=== PATIENT | male | born 1940 | race Caucasian/White ===

== ENCOUNTER 2017-06-24 15:27 | Outpatient (RCR) | payer MEDICARE, SELFPAY ==
--- NOTE | 2017-06-29 11:40 | HP.OTEVAL_ITS ---
Patient's Visit Information MARCE ROMERO is a 76 year old M, referred to Occupational Therapy by Hamida Norton DPM,, with a diagnosis of Bilateral Lymphedema. Date of Evaluation: 06/24/17 Occupational Therapist: Carmen Chong, REGGIER/Jodie, CHT - Subjective Subjective: Pt states he has struggled with swelling in BLE for at least 2 years. Pt states he was using compression socks but has not used compression socks for about a year- states he started at a wound center at [facility] about a year ago- started in [place] about 2 months ago- pt demo with sig. swelling in BLE- pt states he has in the past worked with someone to get his swelling under control but that was years ago- pt is hopeful to decrease limb size and get compression devices that will help him with his swelling. - Objective Objective/Observation: pt demo with stage III lymphedema- edema and trophic changes- - Lymphedema (Circumferential Measure) Mid-foot: Right 32cm left 32cm Ankle: right 37cm left 41 Lower calf: right 46cm left 44 Largest calf: right 52cm left 52cm Below knee: right 43cm left 42cm - Lower Limb Functional Index Lower Extremity Functional Score: 18 - Goals Demonstrate a 20% reduction in edema by d/c: Yes Demonstrate adequate knowledge of self-bangaging by 1st week: Yes Demonstrate adequate knowledge skin care/prec by 2nd week: Yes Demonstrate adequate knowledge therapeutic exercises by d/c: Yes Select approp compression garment w/donning/care/wear by d/c: Yes Voice need to replace compression garment every 4-6mo by dc: Yes - Rehabilitation General Assessment: Pt demo with stage III lymphedema. Pt would benefit form skilled OT services to ed. pt on dx and mtg- Rehabilitation Potential: Fair - Anticipated Interventions Anticipated Interventions: Education re Diagnosis, Manual Lymph Drainage, Education re Life-long lymphedema Management, Education re Self-Bandaging Techniques, Education re Skin Care and Precautions, Education re Self Massage Techniques, Education re Correct Donning Tech,Care&Wearing Sched Comp Garments, Caregiver Training - Visit Plan Frequency: 1-2x /Week Duration: 3 Weeks General Plan: will see pt 1-2 week for 3 weeks- ed pt on need for compression on LE to assist in mtg of LE edema- with pts measurments he will need alternative compression device as compression socks will not fit appropriately at this time- ed.pt on need to use wrapping to decrease limb size- pt willing to get circaids wrap to decrease limb size- Pts states she will check into insurance and coverage for compression devices/circaids TEXT: Thank you for the opportunity to evaluate your patient. For Medicare and Medicare HMO plans, please review the plan of care and approve it. It will need to be FAXED BACK to us at [phone] for Medicare purposes. Please let me know if there are questions or concerns regarding this plan of care. Physician Signature: Date:
--- NOTE | 2017-10-14 14:58 | HP.OT.NRP ---
HP - Discharge Summary - Patient Information MARCE ROMERO was seen in my office for initial evaluation on 06/24/17. The following Plan of Care was established for this patient: Initial Frequency: 1-2x /Week Initial Duration: 3 Weeks - Anticipated Interventions Anticipated Interventions: Education re Diagnosis, Manual Lymph Drainage, Education re Life-long lymphedema Management, Education re Self-Bandaging Techniques, Education re Skin Care and Precautions, Education re Self Massage Techniques, Education re Correct Donning Tech,Care&Wearing Sched Comp Garments, Caregiver Training This patient was last seen in our office 06/24/17. Pertinent comments regarding their Occupational therapy will appear below: pt attended inital OT eval. he did not return for further apts. pt d/c at this time due to non attendance. At this point I will be discontinuing this patient from occupational therapy. I would be happy to see this patient again in the future if found appropriate by the physician. Thank you! Carmen Chong, OTR/L, CHT
== END 2017-06-24 19:00 | disposition home or self-care (01) ==
LOC: OT 15:27
PROVIDERS: Visit Provider Podiatrist
DX: I89.0 Lymphedema, not elsewhere classified (principal); R60.0 Localized edema
CPT/HCPCS: 97166; G8978; G8979

== ENCOUNTER 2017-10-07 09:36 | Outpatient (RCR) | payer MEDICARE, SELFPAY | END 2017-10-14 23:59 | LOC: DC 09:36 | PROVIDERS: Visit Provider Podiatrist | DX: E11.40 Type 2 diabetes mellitus with diabetic neuropathy, unspecified (principal); L97.922 Non-pressure chronic ulcer of unspecified part of left lower leg with fat layer exposed; E46 Unspecified protein-calorie malnutrition; T14.90XA Injury, unspecified, initial encounter; Z71.3 Dietary counseling and surveillance | CPT/HCPCS: G0109 ==

== ENCOUNTER 2017-12-16 16:18 | Outpatient (RCR) | payer MEDICARE, SELFPAY ==
[2017-07-15 00:50] VITALS: BP 154/80; BMI 32.5
== END 2017-12-16 16:19 | disposition home or self-care (01) ==
LOC: DC 16:18
PROVIDERS: Visit Provider Podiatrist
DX: E11.40 Type 2 diabetes mellitus with diabetic neuropathy, unspecified (principal); L97.922 Non-pressure chronic ulcer of unspecified part of left lower leg with fat layer exposed; E46 Unspecified protein-calorie malnutrition; T14.90XA Injury, unspecified, initial encounter; Z71.3 Dietary counseling and surveillance
CPT/HCPCS: 97803

== ENCOUNTER 2018-01-17 11:33 | Emergency (ER) | payer MEDICARE, SELFPAY ==
[2018-01-17 11:34] VITALS: BP 142/83; PULSE 90; RESP 24; TEMP 36.7; O2SAT 86; BMI 32.7
[2018-01-17 11:49] VITALS: PULSE 84; RESP 18; O2SAT 99
--- NOTE | 2018-01-17 11:58 | ED.DCSUM_ITS ---
- ER Visit Summary Date of Service: 01/17/18 Chief Complaint: Abdominal pain, constipation History of Present Illness: The patient is a 77 M who presents with abdominal pain and constipation. He states he has been dealing with constipation for some time. Today he developed some abdominal pain which is why he came in. He has had no nausea or vomiting. He states he did have a small bowel movement today but he is not emptying as normal. He tried yogurt for the probiotics. He is also been taking MiraLAX. He states that when he drives he has done about his pants because he feels bloated. He shows me a paper that shows that his PSA is elevated on home blood work and needs to follow-up with his PCP. Physical Examination: Vital signs reviewed. HEENT exam unremarkable. Heart is regular rate and rhythm without murmurs. Lungs are clear to auscultation. Abdomen is soft and nontender. Extremities reveal chronic lymphedema of both lower extremities. Skin exam normal. Neurologic exam normal. Test Results: Acute abdominal series reveals constipation. Emergency Department Course and Treatment: Patient had 2 small bowel movements here but he still feels like he is not cleaned out. I will give him magnesium citrate that he can take at home. He will call his PCP tomorrow for follow-up Treatment Plan: [] Disposition: Discharge Impression: Constipation This note was generated with [employer] dictation software. It may contain incorrect words, spelling, and punctuation that were not noted in review of the chart prior to signing ED Disposition - Plan for ED Patient: Chief Complaint: Constipation Referrals: [facility] Doctor,Out of [Primary Care Provider] -
--- NOTE | 2018-01-17 12:10 | RAD_ITS ---
STUDY: X-RAY - ACUTE ABDOMINAL SERIES REASON FOR EXAM: Male, 77 years old. Constipation and CHF TECHNIQUE: Single view of the chest. Supine, and erect view(s) of the abdomen were obtained. COMPARISON: None. FINDINGS: Lungs are mildly hypoinflated. Mild bibasilar atelectasis. Lungs are otherwise clear. There is cardiomegaly. Normal mediastinum and molly. Normal visualized pulmonary arteries. There is atherosclerotic tortuosity of the aortic arch and descending thoracic aorta. There is a moderate amount of colonic fecal material. The soft tissue structures of the abdomen and pelvis are unremarkable. There are diffuse degenerative changes of the visualized lumbar spine. RAD/Acute Abdomen Inc Chest IMPRESSION: No acute cardiopulmonary disease. Constipation. No evidence of small bowel obstruction. Electronically Signed: Ashok Rizvi DO at 13:32 EDT Tel , Service support ,
--- NOTE | 2018-01-17 13:45 | ED.DEP ---
ED Disposition - Plan for ED Patient: Disposition: Home or Assisted Living Chief Complaint: Constipation Instructions: ED Constipation Referrals: [facility] Doctor,Out of [Primary Care Provider] -
[2018-01-17] MEDS: Magnesium Citrate 300 ML PO (14:09)
[2018-01-17 14:10] VITALS: RESP 20; O2SAT 94
== END 2018-01-17 14:11 | disposition home or self-care (01) ==
PROVIDERS: Emergency Provider Emergency Medicine
DX: K59.00 Constipation, unspecified (principal); I89.0 Lymphedema, not elsewhere classified; I10 Essential (primary) hypertension; E78.00 Pure hypercholesterolemia, unspecified; E11.9 Type 2 diabetes mellitus without complications; J44.9 Chronic obstructive pulmonary disease, unspecified; Z79.84 Long term (current) use of oral hypoglycemic drugs; Z79.899 Other long term (current) drug therapy
CPT/HCPCS: 74022; 99282

== ENCOUNTER 2018-01-27 12:32 | Outpatient (RCR) | payer MEDICARE, SELFPAY ==
--- NOTE | 2018-02-01 14:24 | HP.OTEVAL_ITS ---
Patient's Visit Information MARCE ROMERO is a 77 year old M, referred to Occupational Therapy by Kendall Buckley, with a diagnosis of Bilateral LE lymphedema. Date of Evaluation: 01/27/18 Occupational Therapist: Carmen Chong, KAYLA/Jodie, CHT - Subjective Subjective: PT arrives to center with - wraps from wound center on- pt states he was sent to to get a pump for his LE. pt states he was using compression socks- but he did not feel they were helping with his swelling- PT was here in and advised on the compression alternative as the circaide, farrow wraps etc. was to call insurance at that time to see if the insurance would cover the compression alternative- she did not call- Pt states he developed 5 wounds on his LE and has been being seen at the wound center- states he is happy with his progress but was referred to lymphedema clinic to get pt a compression pump for home mtg. of his lymphedema. - Lower Limb Functional Index Lower Extremity Functional Score: 6 - Goals Demonstrate adequate knowledge of self-bangaging by 1st week: Yes Demonstrate adequate knowledge skin care/prec by 2nd week: Yes Demonstrate adequate knowledge therapeutic exercises by d/c: Yes Select approp compression garment w/donning/care/wear by d/c: Yes Voice need to replace compression garment every 4-6mo by dc: Yes Goal:: Pt will demo understanding of how to get compression alternative devices. - Rehabilitation General Assessment: This pt is demo with bilateral stage III lymphedema. pt was seen at this clinic in 2016 and due to his high co-pay did not return. pt still has his high co-pay and states concerns with cost- this pt in was ed. on compression alternatived because he was having difficulty with donning his compression socks. pt and at that time were ed. on mtg. of LE lymphedema and cost of alternative divice as farrow wrap or circaide- pt and and were to contact their insurance company and pursue- purchase of alternative compression device. both pt and pts demo understanding Rehabilitation Potential: Questionable - Anticipated Interventions Anticipated Interventions: Education re Diagnosis, Education re Life-long lymphedema Management, Education re Skin Care and Precautions, Education re Correct Donning Tech,Care&Wearing Sched Comp Garments, Home Program Other Interventions: ed. on compression alternatives - Visit Plan Frequency: Every Other Week Duration: 4 Weeks TEXT: Thank you for the opportunity to evaluate your patient. For Medicare and Medicare HMO plans, please review the plan of care and approve it. It will need to be FAXED BACK to us at [phone] for Medicare purposes. Please let me know if there are questions or concerns regarding this plan of care. Physician Signature: Date:
--- NOTE | 2018-05-10 15:44 | HP.OT.NRP ---
HP - Discharge Summary - Patient Information MARCE ROMERO was seen in my office for initial evaluation on 01/27/18. The following Plan of Care was established for this patient: Initial Frequency: Every Other Week Initial Duration: 4 Weeks - Anticipated Interventions Anticipated Interventions: Education re Diagnosis, Education re Life-long lymphedema Management, Education re Skin Care and Precautions, Education re Correct Donning Tech,Care&Wearing Sched Comp Garments, Home Program Other Interventions: ed. on compression alternatives This patient was last seen in our office 01/27/18. Pertinent comments regarding their Occupational therapy will appear below: Pt seen for inital OT eval only. Due to laps in tx time pt is D/C at this time. At this point I will be discontinuing this patient from occupational therapy. I would be happy to see this patient again in the future if found appropriate by the physician. Thank you! Carmen Chong, OTR/L, CHT
== END 2018-01-27 19:00 | disposition home or self-care (01) ==
LOC: OT 12:32
PROVIDERS: Visit Provider Surgery
DX: I89.0 Lymphedema, not elsewhere classified (principal); L97.929 Non-pressure chronic ulcer of unspecified part of left lower leg with unspecified severity; L97.919 Non-pressure chronic ulcer of unspecified part of right lower leg with unspecified severity
CPT/HCPCS: 97166

== ENCOUNTER 2018-02-04 08:00 | Outpatient (RCR) | payer MEDICARE, SELFPAY ==
[2018-01-12 10:00] VITALS: BP 145/86; PULSE 78; RESP 20; TEMP 36; BMI 30.2
--- NOTE | 2018-01-12 11:44 | PCM.WC.HP ---
(1) Swelling of both lower extremities Status: Chronic Current Visit: Yes Code(s): M79.89 - Other specified soft tissue disorders (2) BPH (benign prostatic hyperplasia) Status: Chronic Current Visit: No Code(s): N40.0 - Benign prostatic hyperplasia without lower urinary tract symptoms (3) Inguinal hernia Status: Chronic Current Visit: No Qualifiers: Laterality: bilateral Code(s): K40.90 - Unilateral inguinal hernia, without obstruction or gangrene, not specified as recurrent (4) Oxygen dependent Status: Chronic Current Visit: Yes Code(s): Z99.81 - Dependence on supplemental oxygen (5) Physical deconditioning Status: Chronic Current Visit: Yes Code(s): R53.81 - Other malaise (6) Delayed wound healing Status: Chronic Current Visit: Yes Code(s): T14.8 - Other injury of unspecified body region (7) Congestive heart failure Status: Chronic Current Visit: Yes Qualifiers: Heart failure chronicity: chronic Code(s): I50.9 - Heart failure, unspecified (8) Diabetes mellitus with neuropathy Status: Chronic Current Visit: Yes Qualifiers: Diabetes mellitus type: type 1 Qualified Code(s): E10.40 - Type 1 diabetes mellitus with diabetic neuropathy, unspecified Code(s): E11.40 - Type 2 diabetes mellitus with diabetic neuropathy, unspecified (9) 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 Status: Chronic Current Visit: Yes Code(s): L97.922 - Non-pressure chronic ulcer of unspecified part of left lower leg with fat layer exposed (10) Chronic ulcer of right leg with fat layer exposed Status: Acute Current Visit: Yes Code(s): L97.912 - Non-pressure chronic ulcer of unspecified part of right lower leg with fat layer exposed (11) Venous insufficiency Status: Chronic Current Visit: Yes (12) Lymphedema Status: Chronic Current Visit: Yes Code(s): I89.0 - Lymphedema, not elsewhere classified (13) Edema, lower extremity Status: Chronic Current Visit: Yes Code(s): R60.0 - Localized edema (14) Venous insufficiency Status: Chronic Current Visit: Yes (15) Venous stasis dermatitis Status: Acute Current Visit: Yes Qualifiers: Laterality: bilateral Qualified Code(s): I87.2 - Venous insufficiency (chronic) (peripheral) Code(s): I87.2 - Venous insufficiency (chronic) (peripheral) (16) Hypertension Status: Chronic Current Visit: No Code(s): I10 - Essential (primary) hypertension History of Present Illness Date of Service: 01/12/18 Chief Complaint: Bilateral, chronic lower extremity swelling, edema, lymphedema, and ulcerations History of Wound: This 77-year-old male with significant past medical history presents for bilateral uncontrolled leg swelling, edema, lymphedema, and chronic ulcerations. The swelling, edema, and lymphedema in his lower extremities has been present for at least 4 years, and ulcerations have been present for that length of time as well. The patient is relatively immobile. He is minimally ambulatory. He spends long hours each day in an idle sitting position. He is also known to have congestive heart failure. He is oxygen dependent, using 4 L of oxygen by nasal cannula through most of the day. Because of his congestive heart failure, he finds it difficulty to lie in a recumbent position for extended periods of time. He denies a history of thrombophlebitis. A noninvasive lower extremity arterial study was performed in May 2017, which revealed normal resting ankle/brachial indices bilaterally. Triphasic waveforms were also noted at ankle level bilaterally. A venous duplex examination performed in May 2017 revealed incompetence of the right great saphenous vein in the right accessory saphenous vein. The left great saphenous vein below the knee was also incompetent. 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 His history is negative for myocardial infarction, cerebrovascular accident, cancer, pulmonary disease, renal disease, and hyperlipidemia. He has bilateral reducible inguinal hernias. Surgical History: - - The patient has undergone removal of a plantars wart on his right foot in the remote past. Is undergone right inguinal hernia repair. He also underwent tonsillectomy in the past. Home Medications: Ambulatory Orders Medication Instructions Recorded Atorvastatin Calcium 40 mg PO BREAKFAST 05/20/17 Carvedilol 3.125 mg PO BREAKFAST 05/20/17 Furosemide 40 mg PO DAILY 05/20/17 Glyburide 5 mg PO DAILY 05/20/17 HydrALAZINE 50 mg PO BREAKFAST 05/20/17 Isosorbide Dinitrate 10 mg PO BREAKFAST 05/20/17 Lisinopril/Hydrochlorothiazide PO BREAKFAST 05/20/17 Potassium Chloride 20 meq PO BREAKFAST 05/20/17 - Family History Paternal - - The patient's father at age of 60 from a shotgun wound. The patient's mother at age of 93 with a history of diabetes mellitus. 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 He works 3 days a week. He is . He denies use of tobacco products. He consumes alcoholic beverages occasionally. Lives: Spouse/ Significant Other Smoking Status: Never smoker Tobacco Use: Non-smoker Alcohol: Occasional Drugs: None Review of Systems Constitutional: Denies: Chills, Fever, Weight Change Eyes: Denies: Pain, Vision Change HEENT: Denies: Difficulty Hearing, Difficulty Swallowing, Sinus Congestion Cardiovascular: Denies: Chest Pain, Palpitations Respiratory: Denies: Cough, Shortness of Breath Gastrointestinal: Denies: Diarrhea, Nausea, Vomiting Genitourinary: Denies: Dysuria, Hematuria Endocrine: Denies: Heat/ Cold Intolerance, Polydipsia, Polyuria Hematologic/ Lymphatic: Denies: Easy Bruising, Easy Bleeding - Physical Exam Vital Signs Temp Pulse Resp BP 96.8 F L 78 20 H 145/86 H 01/12/18 10:00 01/12/18 10:00 01/12/18 10:00 01/12/18 10:00 General: Alert, Oriented x3, Cooperative, No apparent distress, Well developed, Well nourished HEENT: Atraumatic, PERRLA, EOMI, Normocephalic Oral: Moist Mucosa Neck: Supple, No JVD, Negative Carotid Bruits, Negative Hepatojugular Reflux, No Nuchal Rigidity, Trachea Midline Lungs: Clear to auscultation, Normal air movement, No rhonchi, No wheeze, No rales Cardiovascular: Regular rate, Regular Rhythm, Normal S1, Normal S2, No murmurs Abdomen: Soft, Non Tender, Non-Distended, Obese Extremities: No clubbing, No cyanosis, No Calf Tenderness, - - Bilateral lower extremity swelling, edema, and lymphedema are noted. Very mild, slight erythema is noted in the lower extremities bilaterally. 3 superficial ulcerations are noted in the right lower extremity. One superficial ulceration is noted in the left lower extremity. There is no obvious sign of infection or cellulitis. Dimensions are documented elsewhere. There is a mild amount of bioburden. Severe scaly venous stasis dermatitis is noted bilaterally. Wound Measurements and Assessment WC - Nurse 1 - General Ulcer Measurement Start: 01/12/18 09:55 Freq: Status: Active Protocol: Activity Type Activity Date Activity User E-Sign Co-Sign Detail Recorded Client Recorded Date Recorded By Document 01/12/18 10:00 DV [id number] 01/12/18 10:24 DV 01/12/18 10:00 Wound Center Nurse 1 [Ulcer Assessment] #8 Lateral RLE -Combined with other wound No -Current Size (cm) - Length 0.9 -Current Size (cm) - Width 0.9 -Current Size (cm) - Depth 0.2 -Total Square Cm 0.81 -Date of Last Picture (Recall this 01/12/18 field) -Photo Taken Yes -Epithelialization None Present -Tunneling No -Undermining/Tunneling No -Circular Undermining No -Classification - Thickness Full Thickness without Exposed Support Structure -Exudate Amt Large (67-100%) -Exudate Type Serosanguineous -Wound Margin Flat & Intact -Granulation Amt Medium (34-66%) -Granulation Quality Boring -Slough/Fibrin Yes -Necrosis Amt Medium (34-66%) -Necrotic Tissue Type Adherent Slough -Structure Exposed None/Limited to Skin Breakdown -Texture (Lili-wound Skin Appearance) Assessed Callus Excoriation Localized Edema -Moisture (Lili-wound Skin Appearance Assessed ) Weeping -Color (Lili-wound Skin Appearance) Assessed Erythema Mottled -Temperature (Lili-wound Skin No Abnormality Appearance) (Pt Warm) -Tenderness on Palpation (Lili-wound Yes Skin Appearance) -Ulcer Cleansing Wound Cleanser -Foul Odor after Cleansing Yes -Anesthetic Used 4% Lidocaine Solution #7 Right Mid Doty -Combined with other wound No -Current Size (cm) - Length 1.4 -Current Size (cm) - Width 1.3 -Current Size (cm) - Depth 0.2 -Total Square Cm 1.82 -Photo Taken Yes -Epithelialization None Present -Tunneling No -Undermining/Tunneling No -Classification - Thickness Full Thickness without Exposed Support Structure -Exudate Amt Large (67-100%) -Exudate Type Serosanguineous -Wound Margin Flat & Intact -Granulation Amt Small (1-33%) -Granulation Quality Boring -Slough/Fibrin Yes -Necrosis Amt Large (67-100%) -Necrotic Tissue Type Adherent Slough -Structure Exposed None/Limited to Skin Breakdown -Texture (Lili-wound Skin Appearance) Assessed Excoriation Localized Edema -Moisture (Lili-wound Skin Appearance Assessed ) Maceration Weeping -Color (Lili-wound Skin Appearance) Assessed Erythema Hemosiderin Staining Mottled -Temperature (Lili-wound Skin No Abnormality Appearance) (Pt Warm) -Ulcer Cleansing Wound Cleanser -Foul Odor after Cleansing Yes -Anesthetic Used 4% Lidocaine Solution #6 Medial RLE -Combined with other wound No -Current Size (cm) - Length 6.7 -Current Size (cm) - Width 6.9 -Current Size (cm) - Depth 0.1 -Total Square Cm 46.23 -Photo Taken Yes -Epithelialization None Present -Tunneling No -Undermining/Tunneling No -Circular Undermining No -Classification - Thickness Full Thickness without Exposed Support Structure -Exudate Amt Large (67-100%) -Exudate Type Serosanguineous -Wound Margin Flat & Intact -Granulation Amt Medium (34-66%) -Granulation Quality Red -Slough/Fibrin Yes -Necrosis Amt Large (67-100%) -Necrotic Tissue Type Adherent Slough -Structure Exposed None/Limited to Skin Breakdown -Texture (Lili-wound Skin Appearance) Assessed Excoriation Localized Edema Scarring -Moisture (Lili-wound Skin Appearance Assessed ) Maceration Weeping -Color (Lili-wound Skin Appearance) Assessed Erythema Hemosiderin Staining -Temperature (Lili-wound Skin No Abnormality Appearance) (Pt Warm) -Tenderness on Palpation (Lili-wound Yes Skin Appearance) -Ulcer Cleansing Wound Cleanser -Foul Odor after Cleansing Yes -Anesthetic Used 4% Lidocaine Solution #5 Lateral LLE -Combined with other wound No -Current Size (cm) - Length 5.5 -Current Size (cm) - Width 3.0 -Current Size (cm) - Depth 0.1 -Total Square Cm 16.50 -Photo Taken Yes -Epithelialization None Present -Tunneling No -Undermining/Tunneling No -Circular Undermining No -Classification - Thickness Full Thickness without Exposed Support Structure -Exudate Amt Large (67-100%) -Exudate Type Serosanguineous -Wound Margin Flat & Intact -Granulation Amt Medium (34-66%) -Granulation Quality Red -Slough/Fibrin Yes -Necrosis Amt Medium (34-66%) -Necrotic Tissue Type Adherent Slough -Structure Exposed None/Limited to Skin Breakdown -Texture (Lili-wound Skin Appearance) Assessed Excoriation Friable Localized Edema -Moisture (Lili-wound Skin Appearance Assessed ) Maceration Weeping -Color (Lili-wound Skin Appearance) Assessed Erythema Hemosiderin Staining -Temperature (Lili-wound Skin No Abnormality Appearance) (Pt Warm) -Tenderness on Palpation (Lili-wound Yes Skin Appearance) -Ulcer Cleansing Wound Cleanser -Foul Odor after Cleansing Yes -Anesthetic Used 4% Lidocaine Solution [Edema Assessment] -Lower Limb Edema Present Yes -Right Calf (cm) 50.6 -Right Ankle (cm) 38.0 -Left Calf (cm) 53.4 -Left Ankle (cm) 38.6 WC - Nurse 2 - General Ulcer CM Notes Start: 01/12/18 09:55 Freq: Status: Active Protocol: Activity Type Activity Date Activity User E-Sign Co-Sign Detail Recorded Client Recorded Date Recorded By Document 01/12/18 11:23 [id number] 01/12/18 11:34 01/12/18 11:23 Wound Center Nurse 2 [Procedure/Treatment] #8 Lateral RLE -Time 11:23 -Correct Patient Yes -Correct Side, Site, Position Yes -Correct Procedure Yes -Procedure Performed No -Wound/Ulcer Outcome Not Healed -Foul Odor after Cleansing No -Bioengineered Tissue No -Topical Lidocaine (%) 4 -Lidocaine (ml) 10 -Bleeding Controlled with NA #7 Right Mid Doty -Time 11:24 -Correct Patient Yes -Correct Side, Site, Position Yes -Correct Procedure Yes -Procedure Performed No -Wound/Ulcer Outcome Not Healed -Topical Lidocaine (%) 4 -Lidocaine (ml) 5 #6 Medial RLE -Time 11:24 -Correct Patient Yes -Correct Side, Site, Position Yes -Correct Procedure Yes -Procedure Performed No -Wound/Ulcer Outcome Not Healed -Foul Odor after Cleansing No -Bioengineered Tissue No -Topical Lidocaine (%) 4 -Lidocaine (ml) 5 -Bleeding Controlled with NA #5 Lateral LLE -Time 11:24 -Correct Patient Yes -Correct Side, Site, Position Yes -Correct Procedure Yes -Procedure Performed No -Wound/Ulcer Outcome Not Healed -Ulcer Cleansing Not Cleansed -Foul Odor after Cleansing No -Bioengineered Tissue No -Topical Lidocaine (%) 4 -Lidocaine (ml) 5 [See Physician Procedure note for Specifics] Pain Scale: 0-10 Numeric [Pain] -Is Patient Pain Free? Yes Neurological: Cranial nerves II-XII grossly intact, Neuro grossly intact Psych/Mental Status: Normal Affect, Appropriate, Alert and oriented to time, place, person, mood and affect Debridement Note Post-Debridement Measurements/Treatment WC - Nurse 2 - General Ulcer CM Notes Start: 01/12/18 09:55 Freq: Status: Active Protocol: Activity Type Activity Date Activity User E-Sign Co-Sign Detail Recorded Client Recorded Date Recorded By Document 01/12/18 11:23 PJ [id number] 01/12/18 11:34 01/12/18 11:23 Wound Center Nurse 2 #8 Lateral RLE -Time 11:23 -Correct Patient Yes -Correct Side, Site, Position Yes -Correct Procedure Yes -Procedure Performed No -Wound/Ulcer Outcome Not Healed -Foul Odor after Cleansing No -Bioengineered Tissue No -Topical Lidocaine (%) 4 -Lidocaine (ml) 10 -Bleeding Controlled with NA #7 Right Mid Doty -Time 11:24 -Correct Patient Yes -Correct Side, Site, Position Yes -Correct Procedure Yes -Procedure Performed No -Wound/Ulcer Outcome Not Healed -Topical Lidocaine (%) 4 -Lidocaine (ml) 5 #6 Medial RLE -Time 11:24 -Correct Patient Yes -Correct Side, Site, Position Yes -Correct Procedure Yes -Procedure Performed No -Wound/Ulcer Outcome Not Healed -Foul Odor after Cleansing No -Bioengineered Tissue No -Topical Lidocaine (%) 4 -Lidocaine (ml) 5 -Bleeding Controlled with NA #5 Lateral LLE -Time 11:24 -Correct Patient Yes -Correct Side, Site, Position Yes -Correct Procedure Yes -Procedure Performed No -Wound/Ulcer Outcome Not Healed -Ulcer Cleansing Not Cleansed -Foul Odor after Cleansing No -Bioengineered Tissue No -Topical Lidocaine (%) 4 -Lidocaine (ml) 5 Pain Scale: 0-10 Numeric Is Patient Pain Free? 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 Based upon the patient's history, it appears as though the swelling in his lower extremities is largely due to positional factors, and related to chronic dependency. He sleeps in a recliner chronically. He also spends long hours each day in an idle sitting position. His activity is minimal, and he is not ambulating liberally, and therefore not recruiting the use of the calf and foot muscle pumps for fluid mobilization. In addition, his congestive heart failure is likely also a factor in terms of the lower extremity swelling. Plan: The patient, and his , who is at the bedside, have been advised of the following: Activity has been encouraged. However, given his physical limitations and deconditioning, significant enhancement of activity is unlikely. Leg elevation has also been recommended. The patient has been encouraged to sleep relatively flat position, if possible. Leg elevation to heart level, or above, has been encouraged as well during daytime hours. It is acknowledged that leg elevation may be difficult for the patient, given his history of congestive heart failure and oxygen dependence. He is under the care of a school bus monitor in [place], [place], Dr. Schafer. We have made a request for the patient's most recent echocardiogram. We are to implement compression to the lower extremities by means of Unna boots, applied bilaterally. These will be changed twice weekly. The patient has been advised that he should seek medical attention should he develop some shortness of breath, chest pain, etc. Patient is to return in 1 week for reassessment. Laboratory studies will be obtained for routine assessment. This will include a CBC, comprehensive metabolic profile, hemoglobin A1c, etc. Ultimately, mechanical pneumatic compression pumps may be considered. The patient is not a smoker. Influenza vaccine was not administered today. Patient stands 6 feet 2 inches tall. He weighs 235 pounds. His BMI is 30.2. This places him in an obese 1 category. Weight loss has been recommended, and collaboration with the patient's primary care physician has been recommended.
--- NOTE | 2018-01-12 11:54 | HP.PCM_ITS ---
(1) Swelling of both lower extremities Status: Chronic Current Visit: Yes Code(s): M79.89 - Other specified soft tissue disorders (2) BPH (benign prostatic hyperplasia) Status: Chronic Current Visit: No Code(s): N40.0 - Benign prostatic hyperplasia without lower urinary tract symptoms (3) Inguinal hernia Status: Chronic Current Visit: No Qualifiers: Laterality: bilateral Code(s): K40.90 - Unilateral inguinal hernia, without obstruction or gangrene, not specified as recurrent (4) Oxygen dependent Status: Chronic Current Visit: Yes Code(s): Z99.81 - Dependence on supplemental oxygen (5) Physical deconditioning Status: Chronic Current Visit: Yes Code(s): R53.81 - Other malaise (6) Delayed wound healing Status: Chronic Current Visit: Yes Code(s): T14.8 - Other injury of unspecified body region (7) Congestive heart failure Status: Chronic Current Visit: Yes Qualifiers: Heart failure chronicity: chronic Code(s): I50.9 - Heart failure, unspecified (8) Diabetes mellitus with neuropathy Status: Chronic Current Visit: Yes Qualifiers: Diabetes mellitus type: type 1 Qualified Code(s): E10.40 - Type 1 diabetes mellitus with diabetic neuropathy, unspecified Code(s): E11.40 - Type 2 diabetes mellitus with diabetic neuropathy, unspecified (9) 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 Status: Chronic Current Visit: Yes Code(s): L97.922 - Non-pressure chronic ulcer of unspecified part of left lower leg with fat layer exposed (10) Chronic ulcer of right leg with fat layer exposed Status: Acute Current Visit: Yes Code(s): L97.912 - Non-pressure chronic ulcer of unspecified part of right lower leg with fat layer exposed (11) Venous insufficiency Status: Chronic Current Visit: Yes (12) Lymphedema Status: Chronic Current Visit: Yes Code(s): I89.0 - Lymphedema, not elsewhere classified (13) Edema, lower extremity Status: Chronic Current Visit: Yes Code(s): R60.0 - Localized edema (14) Venous insufficiency Status: Chronic Current Visit: Yes (15) Venous stasis dermatitis Status: Acute Current Visit: Yes Qualifiers: Laterality: bilateral Qualified Code(s): I87.2 - Venous insufficiency ( chronic) (peripheral) Code(s): I87.2 - Venous insufficiency (chronic) (peripheral) (16) Hypertension Status: Chronic Current Visit: No Code(s): I10 - Essential (primary) hypertension History of Present Illness Date of Service: 01/12/18 Chief Complaint: Bilateral, chronic lower extremity swelling, edema, lymphedema , and ulcerations History of Wound: This 77-year-old male with significant past medical history presents for bilateral uncontrolled leg swelling, edema, lymphedema, and chronic ulcerations. The swelling, edema, and lymphedema in his lower extremities has been present for at least 4 years, and ulcerations have been present for that length of time as well. The patient is relatively immobile. He is minimally ambulatory. He spends long hours each day in an idle sitting position. He is also known to have congestive heart failure. He is oxygen dependent, using 4 L of oxygen by nasal cannula through most of the day. Because of his congestive heart failure, he finds it difficulty to lie in a recumbent position for extended periods of time. He denies a history of thrombophlebitis. A noninvasive lower extremity arterial study was performed in May 2017, which revealed normal resting ankle/brachial indices bilaterally. Triphasic waveforms were also noted at ankle level bilaterally. A venous duplex examination performed in May 2017 revealed incompetence of the right great saphenous vein in the right accessory saphenous vein. The left great saphenous vein below the knee was also incompetent. 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 His history is negative for myocardial infarction, cerebrovascular accident, cancer, pulmonary disease, renal disease, and hyperlipidemia. He has bilateral reducible inguinal hernias. Surgical History: - - The patient has undergone removal of a plantars wart on his right foot in the remote past. Is undergone right inguinal hernia repair. He also underwent tonsillectomy in the past. Home Medications: Ambulatory Orders Medication Instructions Recorded Atorvastatin Calcium 40 mg PO BREAKFAST 05/20/17 Carvedilol 3.125 mg PO BREAKFAST 05/20/17 Furosemide 40 mg PO DAILY 05/20/17 Glyburide 5 mg PO DAILY 05/20/17 HydrALAZINE 50 mg PO BREAKFAST 05/20/17 Isosorbide Dinitrate 10 mg PO BREAKFAST 05/20/17 Lisinopril/Hydrochlorothiazide PO BREAKFAST 05/20/17 Potassium Chloride 20 meq PO BREAKFAST 05/20/17 - Family History Paternal - - The patient's father at age of 60 from a shotgun wound. The patient's mother at age of 93 with a history of diabetes mellitus. 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 He works 3 days a week. He is . He denies use of tobacco products. He consumes alcoholic beverages occasionally. Lives: Spouse/ Significant Other Smoking Status: Never smoker Tobacco Use: Non-smoker Alcohol: Occasional Drugs: None Review of Systems Constitutional: Denies: Chills, Fever, Weight Change Eyes: Denies: Pain, Vision Change HEENT: Denies: Difficulty Hearing, Difficulty Swallowing, Sinus Congestion Cardiovascular: Denies: Chest Pain, Palpitations Respiratory: Denies: Cough, Shortness of Breath Gastrointestinal: Denies: Diarrhea, Nausea, Vomiting Genitourinary: Denies: Dysuria, Hematuria Endocrine: Denies: Heat/ Cold Intolerance, Polydipsia, Polyuria Hematologic/ Lymphatic: Denies: Easy Bruising, Easy Bleeding - Physical Exam Vital Signs Temp Pulse Resp BP 96.8 F L 78 20 H 145/86 H 01/12/18 10:00 01/12/18 10:00 01/12/18 10:00 01/12/18 10:00 General: Alert, Oriented x3, Cooperative, No apparent distress, Well developed, Well nourished HEENT: Atraumatic, PERRLA, EOMI, Normocephalic Oral: Moist Mucosa Neck: Supple, No JVD, Negative Carotid Bruits, Negative Hepatojugular Reflux, No Nuchal Rigidity, Trachea Midline Lungs: Clear to auscultation, Normal air movement, No rhonchi, No wheeze, No rales Cardiovascular: Regular rate, Regular Rhythm, Normal S1, Normal S2, No murmurs Abdomen: Soft, Non Tender, Non-Distended, Obese Extremities: No clubbing, No cyanosis, No Calf Tenderness, - - Bilateral lower extremity swelling, edema, and lymphedema are noted. Very mild, slight erythema is noted in the lower extremities bilaterally. 3 superficial ulcerations are noted in the right lower extremity. One superficial ulceration is noted in the left lower extremity. There is no obvious sign of infection or cellulitis. Dimensions are documented elsewhere. There is a mild amount of bioburden. Severe scaly venous stasis dermatitis is noted bilaterally. Wound Measurements and Assessment WC - Nurse 1 - General Ulcer Measurement Start: 01/12/18 09:55 Freq: Status: Active Protocol: Activity Type Activity Date Activity User E-Sign Co-Sign Detail Recorded Client Recorded Date Recorded By Document 01/12/18 10:00 DV [id number] 01/12/18 10:24 DV 01/12/18 10:00 Wound Center Nurse 1 [Ulcer Assessment] #8 Lateral RLE -Combined with other wound No -Current Size (cm) - Length 0.9 -Current Size (cm) - Width 0.9 -Current Size (cm) - Depth 0.2 -Total Square Cm 0.81 -Date of Last Picture (Recall this 01/12/18 field) -Photo Taken Yes -Epithelialization None Present -Tunneling No -Undermining/Tunneling No -Circular Undermining No -Classification - Thickness Full Thickness without Exposed Support Structure -Exudate Amt Large (67-100%) -Exudate Type Serosanguineous -Wound Margin Flat & Intact -Granulation Amt Medium (34-66%) -Granulation Quality [place] -Slough/Fibrin Yes -Necrosis Amt Medium (34-66%) -Necrotic Tissue Type Adherent Slough -Structure Exposed None/Limited to Skin Breakdown -Texture (Lili-wound Skin Appearance) Assessed Callus Excoriation Localized Edema -Moisture (Lili-wound Skin Appearance Assessed ) Weeping -Color (Lili-wound Skin Appearance) Assessed Erythema Mottled -Temperature (Lili-wound Skin No Abnormality Appearance) (Pt Warm) -Tenderness on Palpation (Lili-wound Yes Skin Appearance) -Ulcer Cleansing Wound Cleanser -Foul Odor after Cleansing Yes -Anesthetic Used 4% Lidocaine Solution #7 Right Mid Doty -Combined with other wound No -Current Size (cm) - Length 1.4 -Current Size (cm) - Width 1.3 -Current Size (cm) - Depth 0.2 -Total Square Cm 1.82 -Photo Taken Yes -Epithelialization None Present -Tunneling No -Undermining/Tunneling No -Classification - Thickness Full Thickness without Exposed Support Structure -Exudate Amt Large (67-100%) -Exudate Type Serosanguineous -Wound Margin Flat & Intact -Granulation Amt Small (1-33%) -Granulation Quality [place] -Slough/Fibrin Yes -Necrosis Amt Large (67-100%) -Necrotic Tissue Type Adherent Slough -Structure Exposed None/Limited to Skin Breakdown -Texture (Lili-wound Skin Appearance) Assessed Excoriation Localized Edema -Moisture (Lili-wound Skin Appearance Assessed ) Maceration Weeping -Color (Lili-wound Skin Appearance) Assessed Erythema Hemosiderin Staining Mottled -Temperature (Lili-wound Skin No Abnormality Appearance) (Pt Warm) -Ulcer Cleansing Wound Cleanser -Foul Odor after Cleansing Yes -Anesthetic Used 4% Lidocaine Solution #6 Medial RLE -Combined with other wound No -Current Size (cm) - Length 6.7 -Current Size (cm) - Width 6.9 -Current Size (cm) - Depth 0.1 -Total Square Cm 46.23 -Photo Taken Yes -Epithelialization None Present -Tunneling No -Undermining/Tunneling No -Circular Undermining No -Classification - Thickness Full Thickness without Exposed Support Structure -Exudate Amt Large (67-100%) -Exudate Type Serosanguineous -Wound Margin Flat & Intact -Granulation Amt Medium (34-66%) -Granulation Quality [place] -Slough/Fibrin Yes -Necrosis Amt Large (67-100%) -Necrotic Tissue Type Adherent Slough -Structure Exposed None/Limited to Skin Breakdown -Texture (Lili-wound Skin Appearance) Assessed Excoriation Localized Edema Scarring -Moisture (Lili-wound Skin Appearance Assessed ) Maceration Weeping -Color (Lili-wound Skin Appearance) Assessed Erythema Hemosiderin Staining -Temperature (Lili-wound Skin No Abnormality Appearance) (Pt Warm) -Tenderness on Palpation (Lili-wound Yes Skin Appearance) -Ulcer Cleansing Wound Cleanser -Foul Odor after Cleansing Yes -Anesthetic Used 4% Lidocaine Solution #5 Lateral LLE -Combined with other wound No -Current Size (cm) - Length 5.5 -Current Size (cm) - Width 3.0 -Current Size (cm) - Depth 0.1 -Total Square Cm 16.50 -Photo Taken Yes -Epithelialization None Present -Tunneling No -Undermining/Tunneling No -Circular Undermining No -Classification - Thickness Full Thickness without Exposed Support Structure -Exudate Amt Large (67-100%) -Exudate Type Serosanguineous -Wound Margin Flat & Intact -Granulation Amt Medium (34-66%) -Granulation Quality Red -Slough/Fibrin Yes -Necrosis Amt Medium (34-66%) -Necrotic Tissue Type Adherent Slough -Structure Exposed None/Limited to Skin Breakdown -Texture (Lili-wound Skin Appearance) Assessed Excoriation [place] Localized Edema -Moisture (Lili-wound Skin Appearance Assessed ) Maceration Weeping -Color (Lili-wound Skin Appearance) Assessed Erythema Hemosiderin Staining -Temperature (Lili-wound Skin No Abnormality Appearance) (Pt Warm) -Tenderness on Palpation (Lili-wound Yes Skin Appearance) -Ulcer Cleansing Wound Cleanser -Foul Odor after Cleansing Yes -Anesthetic Used 4% Lidocaine Solution [Edema Assessment] -Lower Limb Edema Present Yes -Right Calf (cm) 50.6 -Right Ankle (cm) 38.0 -Left Calf (cm) 53.4 -Left Ankle (cm) 38.6 WC - Nurse 2 - General Ulcer CM Notes Start: 01/12/18 09:55 Freq: Status: Active Protocol: Activity Type Activity Date Activity User E-Sign Co-Sign Detail Recorded Client Recorded Date Recorded By Document 01/12/18 11:23 [id number] 01/12/18 11:34 01/12/18 11:23 Wound Center Nurse 2 [Procedure/Treatment] #8 Lateral RLE -Time 11:23 -Correct Patient Yes -Correct Side, Site, Position Yes -Correct Procedure Yes -Procedure Performed No -Wound/Ulcer Outcome Not Healed -Foul Odor after Cleansing No -Bioengineered Tissue No -Topical Lidocaine (%) 4 -Lidocaine (ml) 10 -Bleeding Controlled with NA #7 Right Mid [place] -Time 11:24 -Correct Patient Yes -Correct Side, Site, Position Yes -Correct Procedure Yes -Procedure Performed No -Wound/Ulcer Outcome Not Healed -Topical Lidocaine (%) 4 -Lidocaine (ml) 5 #6 Medial RLE -Time 11:24 -Correct Patient Yes -Correct Side, Site, Position Yes -Correct Procedure Yes -Procedure Performed No -Wound/Ulcer Outcome Not Healed -Foul Odor after Cleansing No -Bioengineered Tissue No -Topical Lidocaine (%) 4 -Lidocaine (ml) 5 -Bleeding Controlled with NA #5 Lateral LLE -Time 11:24 -Correct Patient Yes -Correct Side, Site, Position Yes -Correct Procedure Yes -Procedure Performed No -Wound/Ulcer Outcome Not Healed -Ulcer Cleansing Not Cleansed -Foul Odor after Cleansing No -Bioengineered Tissue No -Topical Lidocaine (%) 4 -Lidocaine (ml) 5 [See Physician Procedure note for Specifics] Pain Scale: 0-10 Numeric [Pain] -Is Patient Pain Free? Yes Neurological: Cranial nerves II-XII grossly intact, Neuro grossly intact Psych/Mental Status: Normal Affect, Appropriate, Alert and oriented to time, place, person, mood and affect Debridement Note Post-Debridement Measurements/Treatment WC - Nurse 2 - General Ulcer CM Notes Start: 01/12/18 09:55 Freq: Status: Active Protocol: Activity Type Activity Date Activity User E-Sign Co-Sign Detail Recorded Client Recorded Date Recorded By Document 01/12/18 11:23 [id number] 01/12/18 11:34 01/12/18 11:23 Wound Center Nurse 2 #8 Lateral RLE -Time 11:23 -Correct Patient Yes -Correct Side, Site, Position Yes -Correct Procedure Yes -Procedure Performed No -Wound/Ulcer Outcome Not Healed -Foul Odor after Cleansing No -Bioengineered Tissue No -Topical Lidocaine (%) 4 -Lidocaine (ml) 10 -Bleeding Controlled with NA #7 Right Mid [place] -Time 11:24 -Correct Patient Yes -Correct Side, Site, Position Yes -Correct Procedure Yes -Procedure Performed No -Wound/Ulcer Outcome Not Healed -Topical Lidocaine (%) 4 -Lidocaine (ml) 5 #6 Medial RLE -Time 11:24 -Correct Patient Yes -Correct Side, Site, Position Yes -Correct Procedure Yes -Procedure Performed No -Wound/Ulcer Outcome Not Healed -Foul Odor after Cleansing No -Bioengineered Tissue No -Topical Lidocaine (%) 4 -Lidocaine (ml) 5 -Bleeding Controlled with NA #5 Lateral LLE -Time 11:24 -Correct Patient Yes -Correct Side, Site, Position Yes -Correct Procedure Yes -Procedure Performed No -Wound/Ulcer Outcome Not Healed -Ulcer Cleansing Not Cleansed -Foul Odor after Cleansing No -Bioengineered Tissue No -Topical Lidocaine (%) 4 -Lidocaine (ml) 5 Pain Scale: 0-10 Numeric Is Patient Pain Free? 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 Based upon the patient' s history, it appears as though the swelling in his lower extremities is largely due to positional factors, and related to chronic dependency. He sleeps in a recliner chronically. He also spends long hours each day in an idle sitting position. His activity is minimal, and he is not ambulating liberally, and therefore not recruiting the use of the calf and foot muscle pumps for fluid mobilization. In addition, his congestive heart failure is likely also a factor in terms of the lower extremity swelling. Plan: The patient, and his , who is at the bedside, have been advised of the following: Activity has been encouraged. However, given his physical limitations and deconditioning, significant enhancement of activity is unlikely. Leg elevation has also been recommended. The patient has been encouraged to sleep relatively flat position, if possible. Leg elevation to heart level, or above, has been encouraged as well during daytime hours. It is acknowledged that leg elevation may be difficult for the patient, given his history of congestive heart failure and oxygen dependence. He is under the care of a feather mixer in [place], [place], Dr. Schafer. We have made a request for the patient's most recent echocardiogram. We are to implement compression to the lower extremities by means of [place] boots, applied bilaterally. These will be changed twice weekly. The patient has been advised that he should seek medical attention should he develop some shortness of breath, chest pain, etc. Patient is to return in 1 week for reassessment. Laboratory studies will be obtained for routine assessment. This will include a CBC, comprehensive metabolic profile, hemoglobin A1c, etc. Ultimately, mechanical pneumatic compression pumps may be considered. The patient is not a smoker. Influenza vaccine was not administered today. Patient stands 6 feet 2 inches tall. He weighs 235 pounds. His BMI is 30.2. This places him in an obese 1 category. Weight loss has been recommended, and collaboration with the patient's primary care physician has been recommended.
[2018-01-12 13:18] LABS: Hemoglobin 13.8 g/dl (13.0-16.5); Mean Corp Hgb Conc 30.7 g/gl (32-36); Mean Corpuscular Hgb 31.1 pg (27.0-32.0); Mean Corpuscular Volume 101.4 fL (80-94); Mean Platelet Vol. 11.9 fl (6.2-12.0); Platelet Count 158 K/mm3 (150-450); RBC Distribution Width CV 14.7 % (11.6-14.6); RBC Distribution Width SD 54.5 fl (35.1-43.9); Red Blood Count 4.44 M/mm3 (4.6-6.2); White Blood Count 5.9 K/mm3 (4.4-11.0)
[2018-01-12 13:23] LABS: Scan Indicated on CBC? Y/N NO
[2018-01-12 13:43] LABS: Hemoglobin A1c 8.2 % (4.2-6.3)
[2018-01-12 14:24] LABS: ALB/GLOB Ratio 0.9 RATIO (0.9-2.4); AST(SGOT) 15 U/L (15-37); Alanine Aminotransfer ALT/SGPT 15 U/L (16-61); Albumin, Serum 3.5 g/dL (3.2-5.0); Alkaline Phosphatase 102 U/L (45-117); Anion Gap 0 (5-15); BUN 15 mg/dL (7-18); BUN/Creat Ratio 19.2 RATIO (10-20); Calcium,Total 9.6 mg/dL (8.5-10.1); Chloride 95 mmol/L (98-107); Creatinine, Serum 0.78 mg/dL (0.70-1.30); EST Glomerular Filtration Rate 103 mL/min (>60); Est Glom Filt Rate - Afr Amer 124 mL/min (>60); Estimated Creatinine Clearance 74.21 ml/min; Globulin 3.8 g/dL (2.2-4.2); Glucose 140 mg/dL (74-106); Potassium 4.1 mmol/L (3.5-5.1); Protein, Total 7.3 g/dL (6.4-8.2); Sodium Level 139 mmol/L (136-145)
[2018-01-14 08:12] VITALS: BP 143/82; PULSE 91; RESP 28; TEMP 36.2; O2SAT 95; BMI 30.2
[2018-01-18 14:32] VITALS: BP 147/100; PULSE 86; RESP 22; TEMP 36.6; BMI 30.2
--- NOTE | 2018-01-18 15:15 | HP.PCM_ITS ---
(1) Swelling of both lower extremities Status: Chronic Current Visit: Yes Code(s): M79.89 - Other specified soft tissue disorders (2) BPH (benign prostatic hyperplasia) Status: Chronic Current Visit: No Code(s): N40.0 - Benign prostatic hyperplasia without lower urinary tract symptoms (3) Inguinal hernia Status: Chronic Current Visit: No Qualifiers: Laterality: bilateral Code(s): K40.90 - Unilateral inguinal hernia, without obstruction or gangrene, not specified as recurrent (4) Oxygen dependent Status: Chronic Current Visit: Yes Code(s): Z99.81 - Dependence on supplemental oxygen (5) Physical deconditioning Status: Chronic Current Visit: Yes Code(s): R53.81 - Other malaise (6) Delayed wound healing Status: Chronic Current Visit: Yes Code(s): T14.8 - Other injury of unspecified body region (7) Congestive heart failure Status: Chronic Current Visit: Yes Qualifiers: Heart failure chronicity: chronic Code(s): I50.9 - Heart failure, unspecified (8) Diabetes mellitus with neuropathy Status: Chronic Current Visit: Yes Code(s): E11.40 - Type 2 diabetes mellitus with diabetic neuropathy, unspecified (9) 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 Status: Chronic Current Visit: Yes Code(s): L97.922 - Non-pressure chronic ulcer of unspecified part of left lower leg with fat layer exposed (10) Chronic ulcer of right leg with fat layer exposed Status: Chronic Current Visit: Yes Code(s): L97.912 - Non-pressure chronic ulcer of unspecified part of right lower leg with fat layer exposed (11) Venous insufficiency Status: Chronic Current Visit: Yes (12) Lymphedema Status: Chronic Current Visit: Yes Code(s): I89.0 - Lymphedema, not elsewhere classified (13) Edema, lower extremity Status: Chronic Current Visit: Yes Code(s): R60.0 - Localized edema (14) Venous insufficiency Status: Chronic Current Visit: Yes (15) Venous stasis dermatitis Status: Chronic Current Visit: Yes Qualifiers: Laterality: bilateral Qualified Code(s): I87.2 - Venous insufficiency ( chronic) (peripheral) Code(s): I87.2 - Venous insufficiency (chronic) (peripheral) (16) Hypertension Status: Chronic Current Visit: No Code(s): I10 - Essential (primary) hypertension History of Present Illness Date of Service: 01/18/18 Chief Complaint: Bilateral, chronic lower extremity swelling, edema, lymphedema , and ulcerations History of Wound: This 77-year-old male with significant past medical history presents for bilateral uncontrolled leg swelling, edema, lymphedema, and chronic ulcerations. The swelling, edema, and lymphedema in his lower extremities has been present for at least 4 years, and ulcerations have been present for that length of time as well. The patient is relatively immobile. He is minimally ambulatory. He spends long hours each day in an idle sitting position. He is also known to have congestive heart failure. He is oxygen dependent, using 4 L of oxygen by nasal cannula through most of the day. Because of his congestive heart failure, he finds it difficulty to lie in a recumbent position for extended periods of time. He denies a history of thrombophlebitis. A noninvasive lower extremity arterial study was performed in May 2017, which revealed normal resting ankle/brachial indices bilaterally. Triphasic waveforms were also noted at ankle level bilaterally. A venous duplex examination performed in May 2017 revealed incompetence of the right great saphenous vein and the right accessory saphenous vein. The left great saphenous vein below the knee was also incompetent. 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 Is undergone right inguinal hernia repair. He also underwent tonsillectomy in the past. Allergies/Adverse Reactions: Allergies No Known Allergies Allergy (Verified 01/17/18 11:34) Home Medications: Ambulatory Orders Medication Instructions Recorded Atorvastatin Calcium [Lipitor] 40 mg PO QHS 01/17/18 Carvedilol [Coreg] 3.125 mg PO BID 01/17/18 Furosemide [Lasix] 40 mg PO DAILY 01/17/18 Glyburide 5 mg PO BID 01/17/18 Isosorbide Dinitrate [Isordil] 10 mg PO DAILY 01/17/18 L.acidoph,Paracasei, B.lactis 1 each PO DAILY 01/17/18 [Probiotic] Lisinopril/Hydrochlorothiazide 1 each PO BID 01/17/18 [Zestoretic 20-12.5 mg Tablet] Metformin HCl 500 mg PO BID 01/17/18 Polyethylene Glycol 3350 [Miralax] 17 gm PO DAILY 01/17/18 Potassium Chloride [K-Dur] 20 meq PO DAILY 01/17/18 [place] 160 mg PO BID 01/17/18 Tamsulosin HCl [Flomax] 0.4 mg PO BID 01/17/18 hydrALAZINE [Apresoline] 50 mg PO BID 01/17/18 - Family History Paternal - - The patient's father at age of 60 from a shotgun wound. The patient's mother at age of 93 with a history of diabetes mellitus. Lives: Spouse/ Significant Other Smoking Status: Never smoker Tobacco Use: Non-smoker Alcohol: Occasional Drugs: None Review of Systems Constitutional: Denies: Chills, Fever, Weight Change Eyes: Denies: Pain, Vision Change HEENT: Denies: Difficulty Hearing, Difficulty Swallowing, Sinus Congestion Cardiovascular: Denies: Chest Pain, Palpitations Respiratory: Denies: Cough, Shortness of Breath Gastrointestinal: Denies: Diarrhea, Nausea, Vomiting Genitourinary: Denies: Dysuria, Hematuria Endocrine: Denies: Heat/ Cold Intolerance, Polydipsia, Polyuria Hematologic/ Lymphatic: Denies: Easy Bruising, Easy Bleeding - Physical Exam Vital Signs Temp Pulse Resp BP Pulse Ox 97.8 F 86 22 H 147/100 H 95 01/18/18 14:32 01/18/18 14:32 01/18/18 14:32 01/18/18 14:32 01/14/18 08:12 General: Alert, Oriented x3, Cooperative, No apparent distress, Well developed, Well nourished, - - The patient is obese HEENT: Atraumatic, PERRLA, EOMI, Normocephalic Oral: Moist Mucosa Neck: No JVD Lungs: Normal air movement, - - Nasal cannula for oxygen is in place Abdomen: Non-Distended Extremities: No clubbing, No cyanosis, No Calf Tenderness, - - Severe bilateral lower extremity swelling, edema, and lymphedema is noted in the lower extremities bilaterally. Severe changes are noted, including lipodermatosclerosis, hypopigmentation, scaly dermatitis, and bilateral ulcerations in the gaiter areas. The ulceration on the right lower extremity is generally superficial. The base of the ulceration is pink and healthy, with active granulation tissue. There is only a mild amount of bioburden. Dimensions are documented elsewhere. Ulceration of the left lower extremity is smaller than that on the right, and dimensions are also documented elsewhere. There is a moderate amount of bioburden. There is no sign of infection or cellulitis on either side. Wound Measurements and Assessment WC - Nurse 1 - General Ulcer Measurement Start: 01/12/18 09:55 Freq: Status: Active Protocol: Activity Type Activity Date Activity User E-Sign Co-Sign Detail Recorded Client Recorded Date Recorded By Document 01/18/18 14:32 [id number] 01/18/18 14:41 MERARI 01/18/18 14:32 Wound Center Nurse 1 [Ulcer Assessment] #8 Lateral RLE -Combined with other wound No -Current Size (cm) - Length 0.5 -Current Size (cm) - Width 0.6 -Current Size (cm) - Depth 0.1 -Total Square Cm 0.30 -Photo Taken No -Epithelialization Large 67-100% -Tunneling No -Undermining/Tunneling No -Circular Undermining No -Exudate Amt Small (1-33%) -Exudate Type Serosanguineous -Wound Margin Flat & Intact -Granulation Amt Medium (34-66%) -Granulation Quality Red -Slough/Fibrin Yes -Necrosis Amt Small (1-33%) -Necrotic Tissue Type Adherent Slough -Structure Exposed N/A -Texture (Lili-wound Skin Appearance) Assessed Localized Edema -Moisture (Lili-wound Skin Appearance Assessed ) Dry/Scaly -Color (Lili-wound Skin Appearance) Assessed -Temperature (Lili-wound Skin No Abnormality Appearance) (Pt Warm) -Tenderness on Palpation (Lili-wound No Skin Appearance) -Ulcer Cleansing Wound Cleanser -Foul Odor after Cleansing No -Anesthetic Used 4% Lidocaine Solution #7 Right Mid [place] -Combined with other wound No -Current Size (cm) - Length 0 -Current Size (cm) - Width 0 -Current Size (cm) - Depth 0 -Total Square Cm 0 -Epithelialization Large 67-100% -Tunneling No -Undermining/Tunneling No -Circular Undermining No #6 Medial RLE -Combined with other wound No -Current Size (cm) - Length 6.4 -Current Size (cm) - Width 6.5 -Current Size (cm) - Depth 0.1 -Total Square Cm 41.60 -Photo Taken No -Epithelialization Small 1-33% -Tunneling No -Undermining/Tunneling No -Circular Undermining No -Exudate Amt Large (67-100%) -Exudate Type Serosanguineous -Wound Margin Flat & Intact -Granulation Amt Medium (34-66%) -Granulation Quality [place] -Slough/Fibrin Yes -Necrosis Amt Medium (34-66%) -Necrotic Tissue Type Adherent Slough -Structure Exposed N/A -Texture (Lili-wound Skin Appearance) Assessed Localized Edema -Moisture (Lili-wound Skin Appearance Assessed ) Weeping Dry/Scaly -Color (Lili-wound Skin Appearance) Assessed Hemosiderin Staining -Temperature (Lili-wound Skin No Abnormality Appearance) (Pt Warm) -Tenderness on Palpation (Lili-wound No Skin Appearance) -Ulcer Cleansing Wound Cleanser -Foul Odor after Cleansing No -Anesthetic Used 4% Lidocaine Solution #5 Lateral LLE -Combined with other wound No -Current Size (cm) - Length 8 -Current Size (cm) - Width 2.8 -Current Size (cm) - Depth 0.1 -Total Square Cm 22.4 -Photo Taken No -Epithelialization Small 1-33% -Tunneling No -Undermining/Tunneling No -Circular Undermining No -Exudate Amt Medium (34-66%) -Exudate Type Serosanguineous -Wound Margin Indistinct, Non -Visible -Granulation Amt Medium (34-66%) -Granulation Quality [place] -Slough/Fibrin Yes -Necrosis Amt Medium (34-66%) -Necrotic Tissue Type Adherent Slough -Structure Exposed N/A -Texture (Lili-wound Skin Appearance) Assessed Friable Localized Edema -Moisture (Lili-wound Skin Appearance Assessed ) Weeping Dry/Scaly -Color (Lili-wound Skin Appearance) Assessed Hemosiderin Staining -Temperature (Lili-wound Skin No Abnormality Appearance) (Pt Warm) -Tenderness on Palpation (Lili-wound No Skin Appearance) -Ulcer Cleansing Wound Cleanser -Foul Odor after Cleansing No -Anesthetic Used 4% Lidocaine Solution [Edema Assessment] -Lower Limb Edema Present Yes -Right Calf (cm) 47.4 -Right Ankle (cm) 36.5 -Left Calf (cm) 49.0 -Left Ankle (cm) 37.4 Neurological: Cranial nerves II-XII grossly intact, Neuro grossly intact Psych/Mental Status: Normal Affect, Appropriate, Alert and oriented to time, place, person, mood and affect Debridement Note Post-Debridement Measurements/Treatment WC - Nurse 2 - General Ulcer CM Notes Start: 01/12/18 09:55 Freq: Status: Active Protocol: Activity Type Activity Date Activity User E-Sign Co-Sign Detail Recorded Client Recorded Date Recorded By Document 01/12/18 11:23 PJ [id number] 01/12/18 11:34 PJ 01/12/18 11:23 Wound Center Nurse 2 #8 Lateral RLE -Time 11:23 -Correct Patient Yes -Correct Side, Site, Position Yes -Correct Procedure Yes -Procedure Performed No -Wound/Ulcer Outcome Not Healed -Foul Odor after Cleansing No -Bioengineered Tissue No -Topical Lidocaine (%) 4 -Lidocaine (ml) 10 -Bleeding Controlled with NA #7 Right Mid [place] -Time 11:24 -Correct Patient Yes -Correct Side, Site, Position Yes -Correct Procedure Yes -Procedure Performed No -Wound/Ulcer Outcome Not Healed -Topical Lidocaine (%) 4 -Lidocaine (ml) 5 #6 Medial RLE -Time 11:24 -Correct Patient Yes -Correct Side, Site, Position Yes -Correct Procedure Yes -Procedure Performed No -Wound/Ulcer Outcome Not Healed -Foul Odor after Cleansing No -Bioengineered Tissue No -Topical Lidocaine (%) 4 -Lidocaine (ml) 5 -Bleeding Controlled with NA #5 Lateral LLE -Time 11:24 -Correct Patient Yes -Correct Side, Site, Position Yes -Correct Procedure Yes -Procedure Performed No -Wound/Ulcer Outcome Not Healed -Ulcer Cleansing Not Cleansed -Foul Odor after Cleansing No -Bioengineered Tissue No -Topical Lidocaine (%) 4 -Lidocaine (ml) 5 Pain Scale: 0-10 Numeric Is Patient Pain Free? Yes Laterality: Right - Distal lower extremity Type of Debridement: Excisional debridement Anesthesia Used: 4% Lidocaine Solution Depth: Down to and including healthy tissue, in the subcutaneous layer Percentage of wound debrided: 100 Instrument Used: 5mm curette Severity: Fat Layer Exposed Amount of bleeding with debridement: Mild Bleeding Controlled with: Compression and gauze Patient tolerated procedure well - Additional Wound Laterality: Left Type of Debridement: Excisional debridement Anesthesia Used: 4% Lidocaine Solution Depth: Down to and including healthy tissue, in the subcutaneous layer Percentage of wound debrided: 100 Instrument Used: 5mm curette Severity: Fat Layer Exposed Amount of bleeding with debridement: Mild Bleeding Controlled with: Compression and gauze Patient tolerated procedure: Patient tolerated procedure well Assessment/Plan Active Problems Swelling of both lower extremities (Chronic) Oxygen dependent (Chronic) Physical deconditioning (Chronic) Venous stasis dermatitis (Chronic) Delayed wound healing (Chronic) Congestive heart failure (Chronic) Diabetes mellitus with neuropathy (Chronic) 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 Based upon the patient' s history, it appears as though the swelling in his lower extremities is largely due to positional factors, and related to chronic dependency. He sleeps in a recliner chronically. He also spends long hours each day in an idle sitting position. His activity is minimal, and he is not ambulating liberally, and therefore not recruiting the use of the calf and foot muscle pumps for fluid mobilization. In addition, his congestive heart failure is likely also a factor in terms of the lower extremity swelling. Routine laboratory studies have been obtained at the patient's most recent visit, with results as follows: Glucose 140, BUN 15, creatinine 0.78, total protein 7.3, albumin 3.5, calcium 9.6, AST 15, alkaline phosphatase 102, ALT 15, total bilirubin 0.90, sodium 139, potassium 4.1, chloride 95, pre-albumin 12.0, hemoglobin A1c 8.2, white blood count 5.9, hemoglobin 13.8, hematocrit 45.0, platelets 158,000. Plan: The patient has been advised of the following: Activity has been encouraged. However, given his physical limitations and deconditioning, significant enhancement of activity is unlikely. Leg elevation has also been recommended. However, despite his efforts, leg elevation is not possible, as the patient states I cannot breathe. Therefore, leg elevation is unlikely to be a realistic expectation. The patient has been encouraged to sleep relatively flat position, if possible. Leg elevation to heart level, or above, has been encouraged as well during daytime hours. It is acknowledged that leg elevation may be difficult for the patient, given his history of congestive heart failure and oxygen dependence. He is under the care of a resident director in [place], [place], Dr. Schafer. We have made a request for the patient's most recent echocardiogram. We are to continue compression to the lower extremities by means of Unna boots, applied bilaterally. Thus far, after use of Unna boots for 1 week, the patient appears to be tolerating these without any adverse effects. He was seen several days ago in the emergency department for constipation, which appears to be completely unrelated to his current issues. The patient's Unna boots are to be changed twice weekly. The patient has been advised that he should seek medical attention should he develop some shortness of breath, chest pain, etc. we are to refer the patient to the lymphedema clinic at [facility], and we anticipate that the implementation of mechanical pneumatic compression pumps may be of benefit. It may be possible that these mechanical pumps can be gradually implemented, initially at a low setting, with settings which will increase over time. Vast, it may be possible to implement such mechanical pumps, and avoid concerns regarding possible congestive heart failure. Patient is to return in 1 week for reassessment. The patient is not a smoker. Influenza vaccine was not administered today. Patient stands 6 feet 2 inches tall. He weighs 235 pounds. His BMI is 30.2. This places him in an obese 1 category. Weight loss has been recommended, and collaboration with the patient's primary care physician has been recommended.
[2018-01-21 08:52] VITALS: BP 142/91; PULSE 82; RESP 24; TEMP 36.1; BMI 30.2
[2018-01-25 14:46] VITALS: BP 148/98; PULSE 74; RESP 22; TEMP 36.2; BMI 30.2
[2018-01-28 08:07] VITALS: BP 126/83; PULSE 59; RESP 20; TEMP 36.5; BMI 30.2
[2018-02-01 12:00] VITALS: BP 121/79; PULSE 78; RESP 18; TEMP 33.8; BMI 30.2
--- NOTE | 2018-02-02 09:40 | PN_ITS ---
DATE OF SERVICE: 02/01/2018 The patient returns in routine followup today relative to swelling, edema and ulcerations in both lower extremities. Since evaluated in the wound healing center setting 1 week ago, the patient has been implementing Unna boots bilaterally to the lower extremities. These have been changed twice weekly. He has been advised to elevate his lower extremities as much as possible, but is unable to do so due to severe congestive heart failure, which precludes elevation of his lower extremities to any significant extent. Ulcer dimensions and circumferences of the lower extremities are documented elsewhere. Of note, the circumferences in the lower extremities are little changed. There has been no improvement in the swelling and edema in the patient's lower extremities. However, the ulcerations in the lower extremities are significantly improved. The larger of the 2 ulcerations is noted in the distal right lower extremity. A small ulceration is noted in the left lower extremity. In each case, the base of the ulceration is pink and healthy in appearance, with active granulation tissue. The ulcer in the right lower extremity also demonstrates islands of epithelialization. With respect to the ulcerations, there has been clear improvement in the recent week. We are to continue with current measures. We are to use Unna boots bilaterally. These will be changed twice weekly. The patient will return in 2 weeks for reassessment. Activity has been encouraged. Ultimately, we may consider the use of mechanical pneumatic compression pumps. The patient is not a smoker. Influenza vaccine was not administered today. The patient stands 6 feet 2 inches tall. He weighs 235 pounds. His BMI is 30.2. This places him in an obese 1 category. Weight loss has been recommended, and collaboration with the patient's primary care physician has been recommended. Vital signs, ulcer measurements, circumferences, etc. are documented elsewhere. Kendall Buckley MD T: NTS JOB: [id number]
[2018-02-09 08:21] VITALS: BP 132/79; PULSE 67; RESP 18; TEMP 36.6; BMI 30.2
[2018-02-11 08:13] VITALS: BP 125/68; PULSE 67; RESP 18; TEMP 36.2; BMI 30.2
== END 2018-02-11 23:59 ==
LOC: WC 08:00
PROVIDERS: Visit Provider Surgery
DX: L97.922 Non-pressure chronic ulcer of unspecified part of left lower leg with fat layer exposed (principal); L97.912 Non-pressure chronic ulcer of unspecified part of right lower leg with fat layer exposed; I89.0 Lymphedema, not elsewhere classified; R60.0 Localized edema; M79.89 Other specified soft tissue disorders; N40.0 Benign prostatic hyperplasia without lower urinary tract symptoms; K40.90 Unilateral inguinal hernia, without obstruction or gangrene, not specified as recurrent; Z99.81 Dependence on supplemental oxygen; E11.40 Type 2 diabetes mellitus with diabetic neuropathy, unspecified; I87.2 Venous insufficiency (chronic) (peripheral); I10 Essential (primary) hypertension; I50.9 Heart failure, unspecified; Z68.30 Body mass index [BMI] 30.0-30.9, adult; E66.9 Obesity, unspecified
CPT/HCPCS: 11042; 29580; 80053; 83036; 84134; 85027; 99205; 99211; 99212; 99213; G0463

== ENCOUNTER 2018-02-19 14:35 | Inpatient (IN) | payer MEDICARE, SELFPAY ==
--- NOTE | 2018-02-19 13:00 | EKG12_ITS ---
Test Reason : AM EKG Blood Pressure : / mmHG Vent. Rate : 074 BPM Atrial Rate : 074 BPM P-R Int : 258 ms QRS Dur : 194 ms QT Int : 480 ms P-R-T Axes : 065 -76 080 degrees QTc Int : 532 ms Sinus rhythm with 1st degree A-V block with occasional PVCs Left axis deviation Right bundle branch block Septal infarct , age undetermined Abnormal ECG Confirmed by SHAHLA MILLIGAN, CHANNING ([id number]), multimedia editor NURY GARCIA ([id number] on 03/04/2018 11:36:17 AM Referred By: Ney Herrmann Confirmed By:CHANNING GALE MD
--- NOTE | 2018-02-19 14:05 | RAD_ITS ---
STUDY: X-RAY CHEST REASON FOR EXAM: Male, 77 years old. SOB X COUPLE WEEKS, CHEST TIGHTNESS TECHNIQUE: AP and lateral views of the chest. COMPARISON: None. FINDINGS: There is mild to moderate cardiomegaly. Lungs are underexpanded. Right hemidiaphragm is elevated. There are bilateral perihilar opacities consistent with vascular congestion. No pleural effusion. Normal visualized pulmonary arteries. Normal visualized aortic arch and descending thoracic aorta. There are diffuse degenerative changes of the visualized thoracic spine. Normal visualized ribs, clavicles, and shoulders. There is no demonstrated abnormality of the visualized soft tissue structures of the upper abdomen. RAD/Chest PA and Lateral IMPRESSION: Cardiomegaly and vascular congestion. Electronically Signed: Doreen Auguste MD at 14:18 EDT , Service support ,
--- NOTE | 2018-02-19 17:11 | DT_ITS ---
This patient was seen during an EMR downtime February 15, 2018 - February 22, 2018. This patient may have a combination of paper and electronic documentation or all paper documentation. All documentation is viewable within the e-chart portion of [facility] for each patient visit.
--- NOTE | 2018-02-19 17:11 | DT_ITS ---
This patient was seen during an EMR downtime February 15, 2018 - February 22, 2018. This patient may have a combination of paper and electronic documentation or all paper documentation. All documentation is viewable within the e-chart portion of [facility] for each patient visit.
--- NOTE | 2018-02-20 12:00 | EKG12_ITS ---
Test Reason : SOB Blood Pressure : / mmHG Vent. Rate : 080 BPM Atrial Rate : 080 BPM P-R Int : 280 ms QRS Dur : 152 ms QT Int : 420 ms P-R-T Axes : 069 -84 106 degrees QTc Int : 484 ms Sinus rhythm with 1st degree A-V block Left axis deviation Left ventricular hypertrophy with QRS widening and repolarization abnormality Inferior infarct , age undetermined Anterolateral infarct , age undetermined Abnormal ECG Confirmed by MIGEL MILLIGAN, KAYLAN ([id number]), editor in chief newspaper NURY GARCIA ([id number]) on 02/24/2018 5:32:05 PM Referred By: Ney Herrmann Confirmed By:KAYLAN LAINEZ MD
--- NOTE | 2018-02-20 14:00 | RAD_ITS ---
STUDY: X-RAY CHEST REASON FOR EXAM: Male, 77 years old. Congestive heart failure. TECHNIQUE: Frontal and lateral views of the chest. COMPARISON: 01/17/2018. FINDINGS: Elevated right hemidiaphragm, stable. Stable atelectasis or scarring in both lung bases. There may be mild congestion, stable. No focal infiltrates. No gross effusions. There is moderate cardiac enlargement. Normal mediastinum and molly. There is prominence of the pulmonary hilar arteries without peripheral pulmonary vascular congestion, suggesting pulmonary hypertension. There is atherosclerotic tortuosity of the aortic arch and descending thoracic aorta. There are diffuse degenerative changes of the visualized thoracic spine. Normal visualized ribs, clavicles, and shoulders. There is no demonstrated abnormality of the visualized soft tissue structures of the upper abdomen. RAD/Chest PA and Lateral IMPRESSION: No definite change. Probable mild atelectasis or scarring in the lung bases. Probable mild congestion and cardiomegaly. Electronically Signed: Francisco Mayorga MD at 15:41 EDT , Service support ,
[2018-02-21 12:48] LABS: BUN 23 mg/dL (7-18); BUN/Creat Ratio 22.8 RATIO (10-20); Calcium,Total 9.1 mg/dL (8.5-10.1); Chloride 91 mmol/L (98-107); Creatinine, Serum 1.01 mg/dL (0.70-1.30); EST Glomerular Filtration Rate 77 mL/min (>60); Est Glom Filt Rate - Afr Amer 93 mL/min (>60); Glucose 145 mg/dL (74-106); Potassium 3.6 mmol/L (3.5-5.1); Sodium Level 142 mmol/L (136-145)
[2018-02-21 17:25] LABS: Anion Gap 6 (5-15)
[2018-02-22] MEDS: Enoxaparin 40 MG/0.4 ML Syringe SC (06:59)
[2018-02-22 07:00] VITALS: PULSE 85
[2018-02-22 07:04] LABS: BUN 28 mg/dL (7-18); BUN/Creat Ratio 25.7 RATIO (10-20); Calcium,Total 9.1 mg/dL (8.5-10.1); Carbon Dioxide > 45.0 mmol/L (21.0-32.0); Chloride 90 mmol/L (98-107); Creatinine, Serum 1.09 mg/dL (0.70-1.30); EST Glomerular Filtration Rate 70 mL/min (>60); Est Glom Filt Rate - Afr Amer 85 mL/min (>60); Glucose 133 mg/dL (74-106); Potassium 3.7 mmol/L (3.5-5.1); Sodium Level 142 mmol/L (136-145)
--- NOTE | 2018-02-22 09:51 | CASEMGMT ---
Per Harsh PRESCHOOL EDUCATION DIRECTOR, pt to be transferred to [facility] for runs of vtach. [facility] is in network according to the [facility] website. The only ambulance company in-network is [facility] and per dispatch they would come get pt and transport to [facility]. Call to [facility] and prior auth obtained per Sera for the ambulance transport at this time. Per [facility] rep, pt's co-pay should be $250. Auth#[id number]. Pt updated on all at this time and voices understanding. [facility] also [facility] per Thien Lam RN CM
[2018-02-22 11:10] VITALS: BP 137/68; PULSE 65; RESP 18; TEMP 36.4; O2SAT 99
[2018-02-22] MEDS: Famotidine 20 MG Tablet PO (11:19)
[2018-02-22 11:20] VITALS: PULSE 65
[2018-02-22] MEDS: hydrALAZINE 50 MG Tablet PO (11:20)
[2018-02-22] MEDS: Carvedilol 3.125 MG TABLET PO (11:21)
[2018-02-22] MEDS: Tamsulosin HCl 0.4 MG Capsule PO (11:21)
[2018-02-22] MEDS: HYDROCHLOROTHIAZIDE 12.5 MG CAPSULE PO (11:21)
[2018-02-22] MEDS: Isosorbide DN 10 MG Tablet PO (11:22)
[2018-02-22] MEDS: Lisinopril 20 MG Tablet PO (11:22)
--- NOTE | 2018-02-22 11:30 | PCM.DC.SUM ---
<Julienne Ann - Last Filed: 02/22/18 11:44> Discharge Date and Diagnosis Date of Admission: 02/19/18 Date of Discharge: 02/22/18 - Primary Discharge Diagnosis 1. Acute on Chronic CHF 2. Nonsustained V. 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 Probable mild atelectasis or scarring in the lung bases. Probable mild congestion and cardiomegaly. Electronically Signed: Francisco Mayorga MD at 15:41 EDT , Service support , Dr. Garcia- Cardiology Operations: None Procedures: None Summary of Care Provided: The patient is a 77 year old M admitted 02/19/18 due to general swelling and shortness of breath. He has a past medical history of type 2 diabetes mellitus, hypertension, CAD, chronic hypoxic respiratory failure, chronic lower extremity wounds with lymphedema, CHF, BPH. 1. Acute on chronic CHF-unknown subtype. Patient follows with Dr. Schafer, abstract checker in [place]. Dr. Schafer was contacted who states patient has not followed up in a long time and he is unsure of patient's past echo results. Patient was placed on Lasix drip during admission. Echocardiogram canceled due to pending transfer to [facility]. 2. Nonsustained V. tach-longest run [address] Garcia consulted. Patient will be transferred to [facility] for further evaluation for defibrillator replacement. 3. Chronic hypoxic respiratory failure-on baseline 3 L nasal cannula. 4. Type 2 diabetes mellitus 5. Hypertension 6. CAD 7. Chronic lower extremity wounds with lymphedema-follows with wound center. Walker wraps bilateral lower extremities. Patient seen exam prior to discharge. Alert and oriented. Lungs clear, diminished. Heart rate 65, regular in rate and rhythm. Neuro grossly intact. Abdomen soft, nontender. +3 bilateral lower extremity edema. Normal affect. Vital signs stable. Patient is stable for transfer to [facility]. This patient was seen by OTILIA Brown under the supervision of Dr. John. Home Medications: Medications to take at Discharge Atorvastatin Calcium [Lipitor] 40 mg PO QHS 01/17/18 Carvedilol [Coreg] 3.125 mg PO BID 01/17/18 Furosemide [Lasix] 40 mg PO DAILY 01/17/18 Glyburide 5 mg PO BID 01/17/18 Isosorbide Dinitrate [Isordil] 10 mg PO DAILY 01/17/18 L.acidoph,Paracasei, B.lactis [Probiotic] 1 each PO DAILY 01/17/18 Lisinopril/Hydrochlorothiazide [Zestoretic 20-12.5 mg Tablet] 1 each PO BID 01/17/18 Metformin HCl 500 mg PO BID 01/17/18 Polyethylene Glycol 3350 [Miralax] 17 gm PO DAILY 01/17/18 Potassium Chloride [K-Dur] 20 meq PO DAILY 01/17/18 Saw [place] 160 mg PO BID 01/17/18 Tamsulosin HCl [Flomax] 0.4 mg PO BID 01/17/18 hydrALAZINE [Apresoline] 50 mg PO BID 01/17/18 Primary Care Physician: Mallorie Hameed,Out of [Primary Care Provider] - Disposition: Acute care Hospital Minutes spent on discharge:: 35 Patient Condition:: Stable Medical Necessity - Tobacco Use Smoking Status: Never smoker Meaningful Use Info Meaningful Use Diagnoses (Choose all that apply): CHF - CHF WALKER/ARB ordered at discharge?: Yes Documented LVEF (%): 0 - Unknown EF <Ambar John - Last Filed: 02/22/18 12:01> Discharge Date and Diagnosis - Secondary Discharge Diagnosis Chronic Problems Swelling of both lower extremities (Chronic) BPH (benign prostatic hyperplasia) (Chronic) Inguinal hernia (Chronic) Oxygen dependent (Chronic) Physical deconditioning (Chronic) Venous stasis dermatitis (Chronic) Hypertension (Chronic) Delayed wound healing (Chronic) Malnutrition (Chronic) Congestive heart failure (Chronic) 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
--- NOTE | 2018-02-22 11:43 | DS.PCM_ITS ---
<Julienne Ann - Last Filed: 02/22/18 11:44> Discharge Date and Diagnosis Date of Admission: 02/19/18 Date of Discharge: 02/22/18 - Primary Discharge Diagnosis 1. Acute on Chronic CHF 2. Nonsustained V. 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 Probable mild atelectasis or scarring in the lung bases. Probable mild congestion and cardiomegaly. Electronically Signed: Francisco Mayorga MD at 15:41 EDT , Service support , Dr. Garcia- Cardiology Operations: None Procedures: None Summary of Care Provided: The patient is a 77 year old M admitted 02/19/18 due to general swelling and shortness of breath. He has a past medical history of type 2 diabetes mellitus , hypertension, CAD, chronic hypoxic respiratory failure, chronic lower extremity wounds with lymphedema, CHF, BPH. 1. Acute on chronic CHF-unknown subtype. Patient follows with Dr. Schafer, medication nurse in [place]. Dr. Schafer was contacted who states patient has not followed up in a long time and he is unsure of patient's past echo results. Patient was placed on Lasix drip during admission. Echocardiogram canceled due to pending transfer to [facility]. 2. Nonsustained V. tach-longest run [address] Garcia consulted. Patient will be transferred to [facility] for further evaluation for defibrillator replacement. 3. Chronic hypoxic respiratory failure-on baseline 3 L nasal cannula. 4. Type 2 diabetes mellitus 5. Hypertension 6. CAD 7. Chronic lower extremity wounds with lymphedema-follows with wound center. Walker wraps bilateral lower extremities. Patient seen exam prior to discharge. Alert and oriented. Lungs clear, diminished. Heart rate 65, regular in rate and rhythm. Neuro grossly intact. Abdomen soft, nontender. +3 bilateral lower extremity edema. Normal affect. Vital signs stable. Patient is stable for transfer to [facility]. This patient was seen by OTILIA Brown under the supervision of Dr. John. Home Medications: Medications to take at Discharge Atorvastatin Calcium [Lipitor] 40 mg PO QHS 01/17/18 Carvedilol [Coreg] 3.125 mg PO BID 01/17/18 Furosemide [Lasix] 40 mg PO DAILY 01/17/18 Glyburide 5 mg PO BID 01/17/18 Isosorbide Dinitrate [Isordil] 10 mg PO DAILY 01/17/18 L.acidoph,Paracasei, B.lactis [Probiotic] 1 each PO DAILY 01/17/18 Lisinopril/Hydrochlorothiazide [Zestoretic 20-12.5 mg Tablet] 1 each PO BID 03/01 Metformin HCl 500 mg PO BID 01/17/18 Polyethylene Glycol 3350 [Miralax] 17 gm PO DAILY 01/17/18 Potassium Chloride [K-Dur] 20 meq PO DAILY 01/17/18 Saw [place] 160 mg PO BID 01/17/18 Tamsulosin HCl [Flomax] 0.4 mg PO BID 01/17/18 hydrALAZINE [Apresoline] 50 mg PO BID 01/17/18 Primary Care Physician: Mallorie Hameed,Out of [Primary Care Provider] - Disposition: Acute care Hospital Minutes spent on discharge:: 35 Patient Condition:: Stable Medical Necessity - Tobacco Use Smoking Status: Never smoker Meaningful Use Info Meaningful Use Diagnoses (Choose all that apply): CHF - CHF WALKER/ARB ordered at discharge?: Yes Documented LVEF (%): 0 - Unknown EF <Ambar John - Last Filed: 02/22/18 12:01> Discharge Date and Diagnosis - Secondary Discharge Diagnosis Chronic Problems Swelling of both lower extremities (Chronic) BPH (benign prostatic hyperplasia) (Chronic) Inguinal hernia (Chronic) Oxygen dependent (Chronic) Physical deconditioning (Chronic) Venous stasis dermatitis (Chronic) Hypertension (Chronic) Delayed wound healing (Chronic) Malnutrition (Chronic) Congestive heart failure (Chronic) 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
[2018-02-22 11:44] LABS: White Blood Count 6.3 K/mm3 (4.4-11.0)
[2018-02-22 11:45] LABS: Absolute Lymphocyte Count 0.66 X10^3/ul (0.83-4.51); Absolute Neutrophil Count 4.9 X10^3/uL (2.0-7.7); Basophil% 0.2 % (0-1); Eosinophils% 2.4 % (0-5); Hematocrit 46.3 % (40-54); Hemoglobin 14.4 g/dl (13.0-16.5); Lymphocyte # 0.66 X10^3/ul (4.0); Lymphocyte % 10.5 % (19-41); Mean Corp Hgb Conc 31.1 g/gl (32-36); Mean Corpuscular Hgb 31.7 pg (27.0-32.0); Mean Platelet Vol. 11.6 fl (6.2-12.0); Monocyte# 0.62 X10^3/uL; Monocyte% 9.8 % (0-10); Neutrophil # 4.86 X10^3/uL (2.7-7.7); Neutrophil % 77.1 % (47-70); POSITIVE COUNT NO; POSITIVE DIFFERENTIAL NO; POSITIVE MORPHOLOGY NO; Platelet Count 128 K/mm3 (150-450); RBC Distribution Width CV 14.5 % (11.6-14.6); RBC Distribution Width SD 53.9 fl (35.1-43.9); Red Blood Count 4.54 M/mm3 (4.6-6.2)
[2018-02-22 11:45] LABS: Bedside Glucose 224 mg/dL (70-110)
[2018-02-22 11:46] LABS: Basophil# 0.01 X10^3/uL; Eosinophil# 0.15 X10^3/uL
[2018-02-22 11:51] VITALS: PULSE 71
--- NOTE | 2018-02-22 13:43 | CASEMGMT ---
[facility] showed up to transport pt after [facility] was called by Grzegorz, crusher and binder operator. Per [facility], 'we are all the same company.' Call to billing at [facility] in [place] and she states that they are owned by the same company and that [facility] would be in-network for pt as well. She states that she will 'keep an eye' on this pt to make sure all billing goes through properly. [facility] transported pt at this time. Genrao WHITTEN CM
[2018-02-22 22:01] LABS: Anion Gap 5 (5-15); BUN 21 mg/dL (7-18); BUN/Creat Ratio 24.1 RATIO (10-20); Chloride 97 mmol/L (98-107); Creatinine, Serum 0.87 mg/dL (0.70-1.30); EST Glomerular Filtration Rate 91 mL/min (>60); Est Glom Filt Rate - Afr Amer 110 mL/min (>60); Glucose 122 mg/dL (74-106); Sodium Level 143 mmol/L (136-145)
[2018-02-22 22:03] LABS: BNP,B-Type NATRIURETIC PEPTIDE 1334.6 pg/mL (0-100)
[2018-02-23 03:33] LABS: Magnesium 1.9 mg/dL (1.6-2.6)
[2018-02-23 09:56] LABS: Thyroid Stim Hormone (TSH) 2.36 uIU/mL (0.358-3.74)
[2018-02-23 10:03] LABS: AST(SGOT) 14 U/L (15-37); Alanine Aminotransfer ALT/SGPT 15 U/L (16-61); Albumin, Serum 3.5 g/dL (3.2-5.0); Alkaline Phosphatase 94 U/L (45-117); Anion Gap 6 (5-15); BUN 21 mg/dL (7-18); BUN/Creat Ratio 26.6 RATIO (10-20); Bilirubin, Direct 0.29 mg/dL (0.00-0.30); Calcium,Total 8.9 mg/dL (8.5-10.1); Chloride 94 mmol/L (98-107); Cholesterol 64 mg/dL (200); Creatinine, Serum 0.79 mg/dL (0.70-1.30); EST Glomerular Filtration Rate 102 mL/min (>60); Est Glom Filt Rate - Afr Amer 124 mL/min (>60); Globulin 3.4 g/dL (2.2-4.2); Glucose 121 mg/dL (74-106); High Density Lipoprotein 36 mg/dL; Potassium 3.5 mmol/L (3.5-5.1); Protein, Total 6.9 g/dL (6.4-8.2); Sodium Level 141 mmol/L (136-145); Triglycerides 60 mg/dL; Very Low Density Lipoprotein 12 mg/dL (5-40)
[2018-02-23 17:58] LABS: Absolute Lymphocyte Count 0.66 X10^3/ul (0.83-4.51); Absolute Neutrophil Count 3.4 X10^3/uL (2.0-7.7); Basophil# 0.02 X10^3/uL; Basophil% 0.4 % (0-1); Eosinophil# 0.15 X10^3/uL; Eosinophils% 3.1 % (0-5); Hematocrit 44.7 % (40-54); Hemoglobin 13.7 g/dl (13.0-16.5); Lymphocyte # 0.66 X10^3/ul (4.0); Lymphocyte % 13.6 % (19-41); Mean Corp Hgb Conc 30.6 g/gl (32-36); Mean Corpuscular Hgb 31.6 pg (27.0-32.0); Mean Platelet Vol. 11.8 fl (6.2-12.0); Monocyte# 0.67 X10^3/uL; Monocyte% 13.8 % (0-10); Neutrophil # 3.36 X10^3/uL (2.7-7.7); Neutrophil % 68.9 % (47-70); POSITIVE COUNT NO; POSITIVE DIFFERENTIAL NO; POSITIVE MORPHOLOGY NO; Platelet Count 121 K/mm3 (150-450); RBC Distribution Width CV 14.6 % (11.6-14.6); RBC Distribution Width SD 54.4 fl (35.1-43.9); Red Blood Count 4.34 M/mm3 (4.6-6.2); White Blood Count 4.9 K/mm3 (4.4-11.0)
[2018-02-25 15:33] LABS: Bedside Glucose 143 mg/dL (70-110)
[2018-02-26 12:17] LABS: Bedside Glucose 166 mg/dL (70-110)
[2018-02-26 20:46] LABS: Bedside Glucose 143 mg/dL (70-110)
[2018-02-26 20:47] LABS: Bedside Glucose 231 mg/dL (70-110)
[2018-02-26 20:48] LABS: Bedside Glucose 151 mg/dL (70-110)
[2018-02-26 20:52] LABS: Bedside Glucose 215 mg/dL (70-110)
[2018-03-03 08:30] LABS: Bedside Glucose 180 mg/dL (70-110)
[2018-03-03 08:30] LABS: Bedside Glucose 162 mg/dL (70-110)
[2018-03-03 08:30] LABS: Bedside Glucose 129 mg/dL (70-110)
[2018-03-03 08:30] LABS: Bedside Glucose 173 mg/dL (70-110)
== END 2018-02-22 13:40 | disposition short-term general hospital (02) | DRG 292 ==
LOC: ED 17:10 → PCU 17:12
PROVIDERS: Nurse Practitioner Family; Admitting Provider Internal Medicine; Emergency Provider Emergency Medicine; Visit Provider Internal Medicine
DX: I11.0 Hypertensive heart disease with heart failure (principal); I47.1 Supraventricular tachycardia; J96.11 Chronic respiratory failure with hypoxia; L97.912 Non-pressure chronic ulcer of unspecified part of right lower leg with fat layer exposed; L97.922 Non-pressure chronic ulcer of unspecified part of left lower leg with fat layer exposed; I50.31 Acute diastolic (congestive) heart failure; I25.10 Atherosclerotic heart disease of native coronary artery without angina pectoris; R60.1 Generalized edema; N40.0 Benign prostatic hyperplasia without lower urinary tract symptoms; I89.0 Lymphedema, not elsewhere classified; E78.5 Hyperlipidemia, unspecified; Z99.81 Dependence on supplemental oxygen; Z87.891 Personal history of nicotine dependence; I87.8 Other specified disorders of veins; E11.40 Type 2 diabetes mellitus with diabetic neuropathy, unspecified; E11.622 Type 2 diabetes mellitus with other skin ulcer
CPT/HCPCS: 36415; 71046; 80048; 80061; 80076; 82962; 83735; 83880; 84443; 84484; 85025; 93005; 96374; 97116; 97162; 97166; 97530; 97802; 99285; A4216; G8978; G8979; G8987; G8988; J1940

== ENCOUNTER 2018-03-08 12:31 | Outpatient (RCR) | payer MEDICARE, SELFPAY ==
[2018-02-12 01:04] VITALS: BP 125/68; PULSE 67; RESP 18; TEMP 36.2; O2SAT 95
[2018-03-08 13:52] VITALS: BP 107/49; PULSE 61; RESP 18; TEMP 36.3
--- NOTE | 2018-03-08 15:24 | PCM.WC.HP ---
(1) Swelling of both lower extremities Status: Chronic Current Visit: Yes Code(s): M79.89 - Other specified soft tissue disorders (2) BPH (benign prostatic hyperplasia) Status: Chronic Current Visit: No Code(s): N40.0 - Benign prostatic hyperplasia without lower urinary tract symptoms (3) Inguinal hernia Status: Chronic Current Visit: No Code(s): K40.90 - Unilateral inguinal hernia, without obstruction or gangrene, not specified as recurrent (4) Oxygen dependent Status: Chronic Current Visit: No Code(s): Z99.81 - Dependence on supplemental oxygen (5) Physical deconditioning Status: Chronic Current Visit: Yes Code(s): R53.81 - Other malaise (6) Venous stasis dermatitis Status: Chronic Current Visit: Yes Qualifiers: Laterality: bilateral Code(s): I87.2 - Venous insufficiency (chronic) (peripheral) (7) Hypertension Status: Chronic Current Visit: No Code(s): I10 - Essential (primary) hypertension (8) Ulcer of right foot with fat layer exposed Status: Resolved Current Visit: No Code(s): L97.512 - Non-pressure chronic ulcer of other part of right foot with fat layer exposed (9) Delayed wound healing Status: Chronic Current Visit: No Code(s): T14.8 - Other injury of unspecified body region (10) Malnutrition Status: Chronic Current Visit: No Code(s): E46 - Unspecified protein-calorie malnutrition (11) Congestive heart failure Status: Chronic Current Visit: Yes Code(s): I50.9 - Heart failure, unspecified (12) Diabetes mellitus with neuropathy Status: Chronic Current Visit: No Code(s): E11.40 - Type 2 diabetes mellitus with diabetic neuropathy, unspecified (13) 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 Status: Chronic Current Visit: No Code(s): L97.922 - Non-pressure chronic ulcer of unspecified part of left lower leg with fat layer exposed (14) Chronic ulcer of right leg with fat layer exposed Status: Chronic Current Visit: No Code(s): L97.912 - Non-pressure chronic ulcer of unspecified part of right lower leg with fat layer exposed (15) Peripheral vascular disease Status: Suspected Current Visit: No Code(s): I73.9 - Peripheral vascular disease, unspecified (16) Venous insufficiency Status: Chronic Current Visit: Yes (17) Lymphedema Status: Chronic Current Visit: Yes Code(s): I89.0 - Lymphedema, not elsewhere classified (18) Edema, lower extremity Status: Chronic Current Visit: Yes Code(s): R60.0 - Localized edema (19) Venous insufficiency Status: Chronic Current Visit: Yes History of Present Illness Date of Service: 03/08/18 Chief Complaint: Bilateral, chronic lower extremity swelling, edema, and lymphedema History of Wound: This 77-year-old male with significant past medical history presented for bilateral uncontrolled leg swelling, edema, and lymphedema. The swelling, edema, and lymphedema in his lower extremities has been present for at least 4 years. The patient is relatively immobile. He is minimally ambulatory. He spends long hours each day in an idle sitting position. He is also known to have congestive heart failure. He is oxygen dependent, using 4 L of oxygen by nasal cannula through most of the day. Because of his congestive heart failure, he finds it difficulty to lie in a recumbent position for extended periods of time. He denies a history of thrombophlebitis. A noninvasive lower extremity arterial study was performed in May 2017, which revealed normal resting ankle/brachial indices bilaterally. Triphasic waveforms were also noted at ankle level bilaterally. A venous duplex examination performed in May 2017 revealed incompetence of the right great saphenous vein and the right accessory saphenous vein. The left great saphenous vein below the knee was also incompetent. 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 The patient has recently been hospitalized at [facility] for 3 days, treated for acute congestive heart failure and nonsustained ventricular tachycardia. After a 3 day hospitalization, he was transferred to [facility] for further evaluation and management. 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 Is undergone right inguinal hernia repair. He also underwent tonsillectomy in the past. Allergies/Adverse Reactions: Allergies No Known Allergies Allergy (Verified 01/17/18 11:34) Home Medications: Ambulatory Orders Medication Instructions Recorded Atorvastatin Calcium [Lipitor] 40 mg PO QHS 01/17/18 Carvedilol [Coreg] 3.125 mg PO BID 01/17/18 Furosemide [Lasix] 40 mg PO DAILY 01/17/18 Glyburide 5 mg PO BID 01/17/18 Isosorbide Dinitrate [Isordil] 10 mg PO DAILY 01/17/18 L.acidoph,Paracasei, B.lactis 1 each PO DAILY 01/17/18 [Probiotic] Lisinopril/Hydrochlorothiazide 1 each PO BID 01/17/18 [Zestoretic 20-12.5 mg Tablet] Metformin HCl 500 mg PO BID 01/17/18 Polyethylene Glycol 3350 [Miralax] 17 gm PO DAILY 01/17/18 Potassium Chloride [K-Dur] 20 meq PO DAILY 01/17/18 [place] 160 mg PO BID 01/17/18 Tamsulosin HCl [Flomax] 0.4 mg PO BID 01/17/18 hydrALAZINE [Apresoline] 50 mg PO BID 01/17/18 - Family History Paternal - - The patient's father at age of 60 from a shotgun wound. The patient's mother at age of 93 with a history of diabetes mellitus. Smoking Status: Never smoker Tobacco Use: Non-smoker Review of Systems Constitutional: Denies: Chills, Fever, Weight Change Eyes: Denies: Pain, Vision Change HEENT: Denies: Difficulty Hearing, Difficulty Swallowing, Sinus Congestion Cardiovascular: Denies: Chest Pain, Palpitations Respiratory: Denies: Cough, Shortness of Breath Gastrointestinal: Denies: Diarrhea, Nausea, Vomiting Genitourinary: Denies: Dysuria, Hematuria Endocrine: Denies: Heat/ Cold Intolerance, Polydipsia, Polyuria Hematologic/ Lymphatic: Denies: Easy Bruising, Easy Bleeding - Physical Exam Vital Signs Temp Pulse Resp BP Pulse Ox 97.3 F L 61 18 107/49 L 95 03/08/18 13:52 03/08/18 13:52 03/08/18 13:52 03/08/18 13:52 02/12/18 01:04 General: Alert, Oriented x3, Cooperative, No apparent distress, Well developed, Well nourished HEENT: Atraumatic, PERRLA, EOMI, Normocephalic Oral: Moist Mucosa Neck: No JVD Lungs: Normal air movement Abdomen: Non-Distended Extremities: No clubbing, No cyanosis, No Calf Tenderness, Edema, - - Bilateral lower extremity swelling and edema is noted. Circumference measurements are documented elsewhere. There appears to be some improvement since the patient's prior visit. There are no obvious open wounds or ulcerations. Mild erythema is noted, appearing to be inflammatory rather than infectious in nature. Wound Measurements and Assessment WC - Nurse 1 - General Ulcer Measurement Start: 03/08/18 13:52 Freq: Status: Active Protocol: Activity Type Activity Date Activity User E-Sign Co-Sign Detail Recorded Client Recorded Date Recorded By Document 03/08/18 13:59 CT [id number] 03/08/18 14:15 CT 03/08/18 13:59 Wound Center Nurse 1 [Ulcer Assessment] #8 Lateral RLE -Current Size (cm) - Length 0 -Current Size (cm) - Width 0 -Current Size (cm) - Depth 0 -Total Square Cm 0 -Date of Last Picture (Recall this 03/08/18 field) -Photo Taken Yes -Epithelialization Large 67-100% -Tunneling No -Undermining/Tunneling No -Circular Undermining No -Exudate Amt None Present (0 %) -Wound Margin Flat & Intact -Granulation Amt Large (67-100%) -Granulation Quality Elmo -Slough/Fibrin No -Texture (Lili-wound Skin Appearance) Assessed Localized Edema -Moisture (Lili-wound Skin Appearance No Abnormality ) Assessed Dry/Scaly -Color (Lili-wound Skin Appearance) Assessed -Temperature (Lili-wound Skin No Abnormality Appearance) (Pt Warm) -Tenderness on Palpation (Lili-wound No Skin Appearance) -Ulcer Cleansing Not Cleansed #6 Medial RLE -Current Size (cm) - Length 0 -Current Size (cm) - Width 0 -Current Size (cm) - Depth 0 -Total Square Cm 0 -Date of Last Picture (Recall this 03/08/18 field) -Photo Taken Yes -Epithelialization Large 67-100% -Tunneling No -Undermining/Tunneling No -Circular Undermining No -Exudate Amt None Present (0 %) -Wound Margin Flat & Intact -Granulation Amt Large (67-100%) -Granulation Quality Elmo -Slough/Fibrin No -Texture (Lili-wound Skin Appearance) Assessed Localized Edema -Moisture (Lili-wound Skin Appearance No Abnormality ) Assessed -Color (Lili-wound Skin Appearance) Assessed Hemosiderin Staining -Temperature (Lili-wound Skin No Abnormality Appearance) (Pt Warm) -Ulcer Cleansing Not Cleansed #5 Lateral LLE -Current Size (cm) - Length 7 -Current Size (cm) - Width 7 -Current Size (cm) - Depth 0.1 -Total Square Cm 49 -Epithelialization None Present -Tunneling No -Undermining/Tunneling No -Circular Undermining No -Exudate Amt None Present (0 %) -Wound Margin Thickened -Granulation Amt None Present (0 %) -Granulation Quality N/A -Slough/Fibrin Yes -Necrosis Amt Large (67-100%) -Necrotic Tissue Type Adherent Slough -Structure Exposed N/A -Texture (Lili-wound Skin Appearance) Assessed Localized Edema -Moisture (Lili-wound Skin Appearance Assessed ) Dry/Scaly -Color (Lili-wound Skin Appearance) Assessed Hemosiderin Staining -Temperature (Lili-wound Skin No Abnormality Appearance) (Pt Warm) -Ulcer Cleansing Rinsed/ Irrigated with Saline -Anesthetic Used 4% Lidocaine Solution [Edema Assessment] -Right Calf (cm) 41.5 -Right Ankle (cm) 35 -Left Calf (cm) 44 -Left Ankle (cm) 35 WC - Nurse 2 - General Ulcer CM Notes Start: 03/08/18 13:52 Freq: Status: Active Protocol: Activity Type Activity Date Activity User E-Sign Co-Sign Detail Recorded Client Recorded Date Recorded By Document 03/08/18 15:03 PJ [id number] 03/08/18 15:08 PJ 03/08/18 15:03 Wound Center Nurse 2 [Procedure/Treatment] #8 Lateral RLE -Time 15:03 -Correct Patient Yes -Correct Side, Site, Position Yes -Correct Procedure Yes -Procedure Performed No -Wound/Ulcer Outcome Not Healed -Ulcer Cleansing Not Cleansed -Bleeding Controlled with NA #6 Medial RLE -Time 15:07 -Correct Patient Yes -Correct Side, Site, Position Yes -Correct Procedure Yes -Procedure Performed No -Wound/Ulcer Outcome Not Healed -Ulcer Cleansing Not Cleansed -Bleeding Controlled with NA #5 Lateral LLE -Time 15:08 -Correct Patient Yes -Correct Side, Site, Position Yes -Correct Procedure Yes -Procedure Performed No -Wound/Ulcer Outcome Not Healed -Ulcer Cleansing Not Cleansed -Bleeding Controlled with NA [See Physician Procedure note for Specifics] Pain Scale: 0-10 Numeric [Pain] -Is Patient Pain Free? Yes Neurological: Cranial nerves II-XII grossly intact, Neuro grossly intact Psych/Mental Status: Normal Affect, Appropriate, Alert and oriented to time, place, person, mood and affect Debridement Note Post-Debridement Measurements/Treatment WC - Nurse 2 - General Ulcer CM Notes Start: 03/08/18 13:52 Freq: Status: Active Protocol: Activity Type Activity Date Activity User E-Sign Co-Sign Detail Recorded Client Recorded Date Recorded By Document 03/08/18 15:03 [id number] 03/08/18 15:08 03/08/18 15:03 Wound Center Nurse 2 #8 Lateral RLE -Time 15:03 -Correct Patient Yes -Correct Side, Site, Position Yes -Correct Procedure Yes -Procedure Performed No -Wound/Ulcer Outcome Not Healed -Ulcer Cleansing Not Cleansed -Bleeding Controlled with NA #6 Medial RLE -Time 15:07 -Correct Patient Yes -Correct Side, Site, Position Yes -Correct Procedure Yes -Procedure Performed No -Wound/Ulcer Outcome Not Healed -Ulcer Cleansing Not Cleansed -Bleeding Controlled with NA #5 Lateral LLE -Time 15:08 -Correct Patient Yes -Correct Side, Site, Position Yes -Correct Procedure Yes -Procedure Performed No -Wound/Ulcer Outcome Not Healed -Ulcer Cleansing Not Cleansed -Bleeding Controlled with NA Pain Scale: 0-10 Numeric Is Patient Pain Free? Yes No debridement was completed today Assessment/Plan Active Problems Swelling of both lower extremities (Chronic) Physical deconditioning (Chronic) Venous stasis dermatitis (Chronic) Congestive heart failure (Chronic) Venous insufficiency (Chronic) Lymphedema (Chronic) Edema, lower extremity (Chronic) Venous insufficiency (Chronic) Assessment: This is a 77-year-old male with severe swelling, edema, and lymphedema in his lower extremities bilaterally, accompanied by a scaly dermatitis in both lower extremities. Based upon the patient's history, it appears as though the swelling in his lower extremities is largely due to positional factors, and related to chronic dependency. He sleeps in a recliner chronically. He also spends long hours each day in an idle sitting position. His activity is minimal, and he is not ambulating liberally, and therefore not recruiting the use of the calf and foot muscle pumps for fluid mobilization. In addition, his congestive heart failure is likely also a factor in terms of the lower extremity swelling. Routine laboratory studies have been obtained at the patient's most recent visit, with results as follows: Glucose 140, BUN 15, creatinine 0.78, total protein 7.3, albumin 3.5, calcium 9.6, AST 15, alkaline phosphatase 102, ALT 15, total bilirubin 0.90, sodium 139, potassium 4.1, chloride 95, pre-albumin 12.0, hemoglobin A1c 8.2, white blood count 5.9, hemoglobin 13.8, hematocrit 45.0, platelets 158,000. Patient has been hospitalized in recent days for treatment of congestive heart failure and nonsustained ventricular tachycardia. His linen aide has said no to mechanical pneumatic compression pumps for the lower extremities. Additionally, conservatism is felt warranted in the amount of compression applied to the patient's lower extremities, to avoid precipitating congestive heart failure. Plan: The patient has been advised of the following: Activity has been encouraged. However, given his physical limitations and deconditioning, significant enhancement of activity is unlikely. Leg elevation has also been recommended. However, despite his efforts, leg elevation is not possible, as the patient states I cannot breathe. Therefore, leg elevation is unlikely to be a realistic expectation. The patient has been encouraged to sleep relatively flat position, if possible. Leg elevation to heart level, or above, has been encouraged as well during daytime hours. It is acknowledged that leg elevation may be difficult for the patient, given his history of congestive heart failure and oxygen dependence. He is under the care of a linen aide in [place], [place], Dr. Schafer. Mechanical pneumatic compression pumps are to be avoided. Aggressive compression by means of graduated compression stockings and other means is also problematic. At present, the patient is using Tubigrip's, which will be continued. The patient has been advised that he should seek medical attention should he develop some shortness of breath, chest pain, etc. We are to refer the patient to the lymphedema clinic at [facility]. Patient is to return in 1 week for reassessment. He may be a candidate for complex care pathway, in which case his visits can occur less frequently. In addition to the patient's relative contraindications to lower extremity compression, there is also suspected to be an element of noncompliance on the patient's part. These factors suggest a poor prognostic outlook. The patient is not a smoker. Influenza vaccine was not administered today. Patient stands 6 feet 2 inches tall. He weighs 235 pounds. His BMI is 30.2. This places him in an obese 1 category. Weight loss has been recommended, and collaboration with the patient's primary care physician has been recommended.
--- NOTE | 2018-03-08 15:35 | HP.PCM_ITS ---
(1) Swelling of both lower extremities Status: Chronic Current Visit: Yes Code(s): M79.89 - Other specified soft tissue disorders (2) BPH (benign prostatic hyperplasia) Status: Chronic Current Visit: No Code(s): N40.0 - Benign prostatic hyperplasia without lower urinary tract symptoms (3) Inguinal hernia Status: Chronic Current Visit: No Code(s): K40.90 - Unilateral inguinal hernia, without obstruction or gangrene, not specified as recurrent (4) Oxygen dependent Status: Chronic Current Visit: No Code(s): Z99.81 - Dependence on supplemental oxygen (5) Physical deconditioning Status: Chronic Current Visit: Yes Code(s): R53.81 - Other malaise (6) Venous stasis dermatitis Status: Chronic Current Visit: Yes Qualifiers: Laterality: bilateral Code(s): I87.2 - Venous insufficiency (chronic) (peripheral) (7) Hypertension Status: Chronic Current Visit: No Code(s): I10 - Essential (primary) hypertension (8) Ulcer of right foot with fat layer exposed Status: Resolved Current Visit: No Code(s): L97.512 - Non-pressure chronic ulcer of other part of right foot with fat layer exposed (9) Delayed wound healing Status: Chronic Current Visit: No Code(s): T14.8 - Other injury of unspecified body region (10) Malnutrition Status: Chronic Current Visit: No Code(s): E46 - Unspecified protein- calorie malnutrition (11) Congestive heart failure Status: Chronic Current Visit: Yes Code(s): I50.9 - Heart failure, unspecified (12) Diabetes mellitus with neuropathy Status: Chronic Current Visit: No Code(s): E11.40 - Type 2 diabetes mellitus with diabetic neuropathy, unspecified (13) 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 Status: Chronic Current Visit: No Code(s): L97.922 - Non-pressure chronic ulcer of unspecified part of left lower leg with fat layer exposed (14) Chronic ulcer of right leg with fat layer exposed Status: Chronic Current Visit: No Code(s): L97.912 - Non-pressure chronic ulcer of unspecified part of right lower leg with fat layer exposed (15) Peripheral vascular disease Status: Suspected Current Visit: No Code(s): I73.9 - Peripheral vascular disease, unspecified (16) Venous insufficiency Status: Chronic Current Visit: Yes (17) Lymphedema Status: Chronic Current Visit: Yes Code(s): I89.0 - Lymphedema, not elsewhere classified (18) Edema, lower extremity Status: Chronic Current Visit: Yes Code(s): R60.0 - Localized edema (19) Venous insufficiency Status: Chronic Current Visit: Yes History of Present Illness Date of Service: 03/08/18 Chief Complaint: Bilateral, chronic lower extremity swelling, edema, and lymphedema History of Wound: This 77-year-old male with significant past medical history presented for bilateral uncontrolled leg swelling, edema, and lymphedema. The swelling, edema, and lymphedema in his lower extremities has been present for at least 4 years. The patient is relatively immobile. He is minimally ambulatory. He spends long hours each day in an idle sitting position. He is also known to have congestive heart failure. He is oxygen dependent, using 4 L of oxygen by nasal cannula through most of the day. Because of his congestive heart failure, he finds it difficulty to lie in a recumbent position for extended periods of time. He denies a history of thrombophlebitis. A noninvasive lower extremity arterial study was performed in May 2017, which revealed normal resting ankle/brachial indices bilaterally. Triphasic waveforms were also noted at ankle level bilaterally. A venous duplex examination performed in May 2017 revealed incompetence of the right great saphenous vein and the right accessory saphenous vein. The left great saphenous vein below the knee was also incompetent. 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 The patient has recently been hospitalized at [facility] for 3 days, treated for acute congestive heart failure and nonsustained ventricular tachycardia. After a 3 day hospitalization, he was transferred to [facility] for further evaluation and management. 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 Is undergone right inguinal hernia repair. He also underwent tonsillectomy in the past. Allergies/Adverse Reactions: Allergies No Known Allergies Allergy (Verified 01/17/18 11:34) Home Medications: Ambulatory Orders Medication Instructions Recorded Atorvastatin Calcium [Lipitor] 40 mg PO QHS 01/17/18 Carvedilol [Coreg] 3.125 mg PO BID 01/17/18 Furosemide [Lasix] 40 mg PO DAILY 01/17/18 Glyburide 5 mg PO BID 01/17/18 Isosorbide Dinitrate [Isordil] 10 mg PO DAILY 01/17/18 L.acidoph,Paracasei, B.lactis 1 each PO DAILY 01/17/18 [Probiotic] Lisinopril/Hydrochlorothiazide 1 each PO BID 01/17/18 [Zestoretic 20-12.5 mg Tablet] Metformin HCl 500 mg PO BID 01/17/18 Polyethylene Glycol 3350 [Miralax] 17 gm PO DAILY 01/17/18 Potassium Chloride [K-Dur] 20 meq PO DAILY 01/17/18 Saw [place] 160 mg PO BID 01/17/18 Tamsulosin HCl [Flomax] 0.4 mg PO BID 01/17/18 hydrALAZINE [Apresoline] 50 mg PO BID 01/17/18 - Family History Paternal - - The patient's father at age of 60 from a shotgun wound. The patient's mother at age of 93 with a history of diabetes mellitus. Smoking Status: Never smoker Tobacco Use: Non-smoker Review of Systems Constitutional: Denies: Chills, Fever, Weight Change Eyes: Denies: Pain, Vision Change HEENT: Denies: Difficulty Hearing, Difficulty Swallowing, Sinus Congestion Cardiovascular: Denies: Chest Pain, Palpitations Respiratory: Denies: Cough, Shortness of Breath Gastrointestinal: Denies: Diarrhea, Nausea, Vomiting Genitourinary: Denies: Dysuria, Hematuria Endocrine: Denies: Heat/ Cold Intolerance, Polydipsia, Polyuria Hematologic/ Lymphatic: Denies: Easy Bruising, Easy Bleeding - Physical Exam Vital Signs Temp Pulse Resp BP Pulse Ox 97.3 F L 61 18 107/49 L 95 03/08/18 13:52 03/08/18 13:52 03/08/18 13:52 03/08/18 13:52 02/12/18 01:04 General: Alert, Oriented x3, Cooperative, No apparent distress, Well developed, Well nourished HEENT: Atraumatic, PERRLA, EOMI, Normocephalic Oral: Moist Mucosa Neck: No JVD Lungs: Normal air movement Abdomen: Non-Distended Extremities: No clubbing, No cyanosis, No Calf Tenderness, Edema, - - Bilateral lower extremity swelling and edema is noted. Circumference measurements are documented elsewhere. There appears to be some improvement since the patient's prior visit. There are no obvious open wounds or ulcerations. Mild erythema is noted, appearing to be inflammatory rather than infectious in nature. Wound Measurements and Assessment WC - Nurse 1 - General Ulcer Measurement Start: 03/08/18 13:52 Freq: Status: Active Protocol: Activity Type Activity Date Activity User E-Sign Co-Sign Detail Recorded Client Recorded Date Recorded By Document 03/08/18 13:59 IL [id number] 03/08/18 14:15 [place] 03/08/18 13:59 Wound Center Nurse 1 [Ulcer Assessment] #8 Lateral RLE -Current Size (cm) - Length 0 -Current Size (cm) - Width 0 -Current Size (cm) - Depth 0 -Total Square Cm 0 -Date of Last Picture (Recall this 03/08/18 field) -Photo Taken Yes -Epithelialization Large 67-100% -Tunneling No -Undermining/Tunneling No -Circular Undermining No -Exudate Amt None Present (0 %) -Wound Margin Flat & Intact -Granulation Amt Large (67-100%) -Granulation Quality [place] -Slough/Fibrin No -Texture (Lili-wound Skin Appearance) Assessed Localized Edema -Moisture (Lili-wound Skin Appearance No Abnormality ) Assessed Dry/Scaly -Color (Lili-wound Skin Appearance) Assessed -Temperature (Lili-wound Skin No Abnormality Appearance) (Pt Warm) -Tenderness on Palpation (Lili-wound No Skin Appearance) -Ulcer Cleansing Not Cleansed #6 Medial RLE -Current Size (cm) - Length 0 -Current Size (cm) - Width 0 -Current Size (cm) - Depth 0 -Total Square Cm 0 -Date of Last Picture (Recall this 03/08/18 field) -Photo Taken Yes -Epithelialization Large 67-100% -Tunneling No -Undermining/Tunneling No -Circular Undermining No -Exudate Amt None Present (0 %) -Wound Margin Flat & Intact -Granulation Amt Large (67-100%) -Granulation Quality [place] -Slough/Fibrin No -Texture (Lili-wound Skin Appearance) Assessed Localized Edema -Moisture (Lili-wound Skin Appearance No Abnormality ) Assessed -Color (Lili-wound Skin Appearance) Assessed Hemosiderin Staining -Temperature (Lili-wound Skin No Abnormality Appearance) (Pt Warm) -Ulcer Cleansing Not Cleansed #5 Lateral LLE -Current Size (cm) - Length 7 -Current Size (cm) - Width 7 -Current Size (cm) - Depth 0.1 -Total Square Cm 49 -Epithelialization None Present -Tunneling No -Undermining/Tunneling No -Circular Undermining No -Exudate Amt None Present (0 %) -Wound Margin Thickened -Granulation Amt None Present (0 %) -Granulation Quality N/A -Slough/Fibrin Yes -Necrosis Amt Large (67-100%) -Necrotic Tissue Type Adherent Slough -Structure Exposed N/A -Texture (Lili-wound Skin Appearance) Assessed Localized Edema -Moisture (Lili-wound Skin Appearance Assessed ) Dry/Scaly -Color (Lili-wound Skin Appearance) Assessed Hemosiderin Staining -Temperature (Lili-wound Skin No Abnormality Appearance) (Pt Warm) -Ulcer Cleansing Rinsed/ Irrigated with Saline -Anesthetic Used 4% Lidocaine Solution [Edema Assessment] -Right Calf (cm) 41.5 -Right Ankle (cm) 35 -Left Calf (cm) 44 -Left Ankle (cm) 35 WC - Nurse 2 - General Ulcer CM Notes Start: 03/08/18 13:52 Freq: Status: Active Protocol: Activity Type Activity Date Activity User E-Sign Co-Sign Detail Recorded Client Recorded Date Recorded By Document 03/08/18 15:03 PJ [id number] 03/08/18 15:08 PJ 03/08/18 15:03 Wound Center Nurse 2 [Procedure/Treatment] #8 Lateral RLE -Time 15:03 -Correct Patient Yes -Correct Side, Site, Position Yes -Correct Procedure Yes -Procedure Performed No -Wound/Ulcer Outcome Not Healed -Ulcer Cleansing Not Cleansed -Bleeding Controlled with NA #6 Medial RLE -Time 15:07 -Correct Patient Yes -Correct Side, Site, Position Yes -Correct Procedure Yes -Procedure Performed No -Wound/Ulcer Outcome Not Healed -Ulcer Cleansing Not Cleansed -Bleeding Controlled with NA #5 Lateral LLE -Time 15:08 -Correct Patient Yes -Correct Side, Site, Position Yes -Correct Procedure Yes -Procedure Performed No -Wound/Ulcer Outcome Not Healed -Ulcer Cleansing Not Cleansed -Bleeding Controlled with NA [See Physician Procedure note for Specifics] Pain Scale: 0-10 Numeric [Pain] -Is Patient Pain Free? Yes Neurological: Cranial nerves II-XII grossly intact, Neuro grossly intact Psych/Mental Status: Normal Affect, Appropriate, Alert and oriented to time, place, person, mood and affect Debridement Note Post-Debridement Measurements/Treatment WC - Nurse 2 - General Ulcer CM Notes Start: 03/08/18 13:52 Freq: Status: Active Protocol: Activity Type Activity Date Activity User E-Sign Co-Sign Detail Recorded Client Recorded Date Recorded By Document 03/08/18 15:03 [id number] 03/08/18 15:08 03/08/18 15:03 Wound Center Nurse 2 #8 Lateral RLE -Time 15:03 -Correct Patient Yes -Correct Side, Site, Position Yes -Correct Procedure Yes -Procedure Performed No -Wound/Ulcer Outcome Not Healed -Ulcer Cleansing Not Cleansed -Bleeding Controlled with NA #6 Medial RLE -Time 15:07 -Correct Patient Yes -Correct Side, Site, Position Yes -Correct Procedure Yes -Procedure Performed No -Wound/Ulcer Outcome Not Healed -Ulcer Cleansing Not Cleansed -Bleeding Controlled with NA #5 Lateral LLE -Time 15:08 -Correct Patient Yes -Correct Side, Site, Position Yes -Correct Procedure Yes -Procedure Performed No -Wound/Ulcer Outcome Not Healed -Ulcer Cleansing Not Cleansed -Bleeding Controlled with NA Pain Scale: 0-10 Numeric Is Patient Pain Free? Yes No debridement was completed today Assessment/Plan Active Problems Swelling of both lower extremities (Chronic) Physical deconditioning (Chronic) Venous stasis dermatitis (Chronic) Congestive heart failure (Chronic) Venous insufficiency (Chronic) Lymphedema (Chronic) Edema, lower extremity (Chronic) Venous insufficiency (Chronic) Assessment: This is a 77-year-old male with severe swelling, edema, and lymphedema in his lower extremities bilaterally, accompanied by a scaly dermatitis in both lower extremities. Based upon the patient's history, it appears as though the swelling in his lower extremities is largely due to positional factors, and related to chronic dependency. He sleeps in a recliner chronically. He also spends long hours each day in an idle sitting position. His activity is minimal, and he is not ambulating liberally, and therefore not recruiting the use of the calf and foot muscle pumps for fluid mobilization. In addition, his congestive heart failure is likely also a factor in terms of the lower extremity swelling. Routine laboratory studies have been obtained at the patient's most recent visit, with results as follows: Glucose 140, BUN 15, creatinine 0.78, total protein 7.3, albumin 3.5, calcium 9.6, AST 15, alkaline phosphatase 102, ALT 15, total bilirubin 0.90, sodium 139, potassium 4.1, chloride 95, pre-albumin 12.0, hemoglobin A1c 8.2, white blood count 5.9, hemoglobin 13.8, hematocrit 45.0, platelets 158,000. Patient has been hospitalized in recent days for treatment of congestive heart failure and nonsustained ventricular tachycardia. His answering service telephone operator has said no to mechanical pneumatic compression pumps for the lower extremities. Additionally , conservatism is felt warranted in the amount of compression applied to the patient's lower extremities, to avoid precipitating congestive heart failure. Plan: The patient has been advised of the following: Activity has been encouraged. However, given his physical limitations and deconditioning, significant enhancement of activity is unlikely. Leg elevation has also been recommended. However, despite his efforts, leg elevation is not possible, as the patient states I cannot breathe. Therefore, leg elevation is unlikely to be a realistic expectation. The patient has been encouraged to sleep relatively flat position, if possible. Leg elevation to heart level, or above, has been encouraged as well during daytime hours. It is acknowledged that leg elevation may be difficult for the patient, given his history of congestive heart failure and oxygen dependence. He is under the care of a answering service telephone operator in [place], [place], Dr. Schafer. Mechanical pneumatic compression pumps are to be avoided. Aggressive compression by means of graduated compression stockings and other means is also problematic. At present, the patient is using Tubigrip' s, which will be continued. The patient has been advised that he should seek medical attention should he develop some shortness of breath, chest pain, etc. We are to refer the patient to the lymphedema clinic at [facility]. Patient is to return in 1 week for reassessment. He may be a candidate for complex care pathway, in which case his visits can occur less frequently. In addition to the patient's relative contraindications to lower extremity compression, there is also suspected to be an element of noncompliance on the patient's part. These factors suggest a poor prognostic outlook. The patient is not a smoker. Influenza vaccine was not administered today. Patient stands 6 feet 2 inches tall. He weighs 235 pounds. His BMI is 30.2. This places him in an obese 1 category. Weight loss has been recommended, and collaboration with the patient's primary care physician has been recommended.
== END 2018-03-13 23:59 ==
LOC: WC 12:31
PROVIDERS: Visit Provider Surgery
DX: E11.622 Type 2 diabetes mellitus with other skin ulcer (principal); E11.40 Type 2 diabetes mellitus with diabetic neuropathy, unspecified; Z99.81 Dependence on supplemental oxygen; M79.89 Other specified soft tissue disorders; N40.0 Benign prostatic hyperplasia without lower urinary tract symptoms; I11.0 Hypertensive heart disease with heart failure; I50.9 Heart failure, unspecified; E11.51 Type 2 diabetes mellitus with diabetic peripheral angiopathy without gangrene; L97.822 Non-pressure chronic ulcer of other part of left lower leg with fat layer exposed; L97.812 Non-pressure chronic ulcer of other part of right lower leg with fat layer exposed; R60.0 Localized edema
CPT/HCPCS: 29581; 99212; G0463

== ENCOUNTER 2018-03-29 12:30 | Outpatient (RCR) | payer MEDICARE, SELFPAY ==
[2018-03-14 00:53] VITALS: BP 107/49; PULSE 61; RESP 18; TEMP 36.3; O2SAT 95
[2018-03-15 13:50] VITALS: BP 121/66; PULSE 56; RESP 20; TEMP 36.6
--- NOTE | 2018-03-15 14:39 | PCM.WC.HP ---
(1) Swelling of both lower extremities Status: Chronic Current Visit: Yes Code(s): M79.89 - Other specified soft tissue disorders (2) BPH (benign prostatic hyperplasia) Status: Chronic Current Visit: No Code(s): N40.0 - Benign prostatic hyperplasia without lower urinary tract symptoms (3) Oxygen dependent Status: Chronic Current Visit: Yes Code(s): Z99.81 - Dependence on supplemental oxygen (4) Physical deconditioning Status: Chronic Current Visit: Yes Code(s): R53.81 - Other malaise (5) Venous stasis dermatitis Status: Chronic Current Visit: Yes Qualifiers: Laterality: bilateral Code(s): I87.2 - Venous insufficiency (chronic) (peripheral) (6) Hypertension Status: Chronic Current Visit: No Code(s): I10 - Essential (primary) hypertension (7) Malnutrition Status: Chronic Current Visit: No Code(s): E46 - Unspecified protein-calorie malnutrition (8) Congestive heart failure Status: Chronic Current Visit: Yes Code(s): I50.9 - Heart failure, unspecified (9) Diabetes mellitus with neuropathy Status: Chronic Current Visit: No Qualifiers: Diabetes mellitus type: type 2 Code(s): E11.40 - Type 2 diabetes mellitus with diabetic neuropathy, unspecified (10) Venous insufficiency Status: Suspected Current Visit: Yes (11) Lymphedema Status: Chronic Current Visit: Yes Code(s): I89.0 - Lymphedema, not elsewhere classified (12) Edema, lower extremity Status: Chronic Current Visit: Yes Code(s): R60.0 - Localized edema (13) Venous insufficiency Status: Chronic Current Visit: Yes History of Present Illness Date of Service: 03/15/18 Chief Complaint: Bilateral, chronic lower extremity swelling, edema, and lymphedema History of Wound: This 77-year-old male with significant past medical history presented for bilateral uncontrolled leg swelling, edema, and lymphedema. The swelling, edema, and lymphedema in his lower extremities has been present for at least 4 years. The patient is relatively immobile. He is minimally ambulatory. He spends long hours each day in an idle sitting position. He is also known to have congestive heart failure. He is oxygen dependent, using 4 L of oxygen by nasal cannula through most of the day. Because of his congestive heart failure, he finds it difficulty to lie in a recumbent position for extended periods of time. He denies a history of thrombophlebitis. A noninvasive lower extremity arterial study was performed in May 2017, which revealed normal resting ankle/brachial indices bilaterally. Triphasic waveforms were also noted at ankle level bilaterally. A venous duplex examination performed in May 2017 revealed incompetence of the right great saphenous vein and the right accessory saphenous vein. The left great saphenous vein below the knee was also incompetent. 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 The patient has recently been hospitalized at [facility] for 3 days, treated for acute congestive heart failure and nonsustained ventricular tachycardia. After a 3 day hospitalization, he was transferred to [facility] for further evaluation and management. 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 Is undergone right inguinal hernia repair. He also underwent tonsillectomy in the past. Allergies/Adverse Reactions: Allergies No Known Allergies Allergy (Verified 01/17/18 11:34) Home Medications: Ambulatory Orders Medication Instructions Recorded Atorvastatin Calcium [Lipitor] 40 mg PO QHS 01/17/18 Carvedilol [Coreg] 3.125 mg PO BID 01/17/18 Furosemide [Lasix] 40 mg PO DAILY 01/17/18 Glyburide 5 mg PO BID 01/17/18 Isosorbide Dinitrate [Isordil] 10 mg PO DAILY 01/17/18 L.acidoph,Paracasei, B.lactis 1 each PO DAILY 01/17/18 [Probiotic] Lisinopril/Hydrochlorothiazide 1 each PO BID 01/17/18 [Zestoretic 20-12.5 mg Tablet] Metformin HCl 500 mg PO BID 01/17/18 Polyethylene Glycol 3350 [Miralax] 17 gm PO DAILY 01/17/18 Potassium Chloride [K-Dur] 20 meq PO DAILY 01/17/18 Saw [place] 160 mg PO BID 01/17/18 Tamsulosin HCl [Flomax] 0.4 mg PO BID 01/17/18 hydrALAZINE [Apresoline] 50 mg PO BID 01/17/18 - Family History Paternal - - The patient's father at age of 60 from a shotgun wound. The patient's mother at age of 93 with a history of diabetes mellitus. Smoking Status: Never smoker Tobacco Use: Non-smoker Review of Systems Constitutional: Denies: Chills, Fever, Weight Change Eyes: Denies: Pain, Vision Change HEENT: Denies: Difficulty Hearing, Difficulty Swallowing, Sinus Congestion Cardiovascular: Denies: Chest Pain, Palpitations Respiratory: Denies: Cough, Shortness of Breath Gastrointestinal: Denies: Diarrhea, Nausea, Vomiting Genitourinary: Denies: Dysuria, Hematuria Endocrine: Denies: Heat/ Cold Intolerance, Polydipsia, Polyuria Hematologic/ Lymphatic: Denies: Easy Bruising, Easy Bleeding - Physical Exam Vital Signs Temp Pulse Resp BP Pulse Ox 98 F 56 L 20 H 121/66 H 95 03/15/18 13:50 03/15/18 13:50 03/15/18 13:50 03/15/18 13:50 03/14/18 00:53 General: Alert, Oriented x3, Cooperative, No apparent distress, Well developed, Well nourished, - - O2 nasal cannula is in place HEENT: Atraumatic, PERRLA, EOMI, Normocephalic Oral: Moist Mucosa Neck: No JVD Lungs: Normal air movement Abdomen: Non-Distended Extremities: No clubbing, No cyanosis, No Calf Tenderness, - - Severe swelling, edema, and lymphedema is noted in the lower extremities bilaterally. There are no open wounds or ulcerations at this time. Circumferences are documented elsewhere. There is mild erythema, thought to be inflammatory rather than infectious. Skin: No breakdown Wound Measurements and Assessment WC - Nurse 1 - General Ulcer Measurement Start: 03/15/18 13:50 Freq: Status: Active Protocol: Activity Type Activity Date Activity User E-Sign Co-Sign Detail Recorded Client Recorded Date Recorded By Document 03/15/18 13:50 [facility] [id number] 03/15/18 14:03 [facility] 03/15/18 13:50 Wound Center Nurse 1 [Ulcer Assessment] #6 Medial RLE -Combined with other wound No -Current Size (cm) - Length 0 -Current Size (cm) - Width 0 -Current Size (cm) - Depth 0 -Total Square Cm 0 -Date of Last Picture (Recall this 03/15/18 field) -Epithelialization Large 67-100% #5 Lateral LLE -Combined with other wound No -Current Size (cm) - Length 0 -Current Size (cm) - Width 0 -Current Size (cm) - Depth 0 -Total Square Cm 0 -Date of Last Picture (Recall this 03/15/18 field) -Epithelialization Large 67-100% [Edema Assessment] -Lower Limb Edema Present Yes -Right Calf (cm) 41 -Right Ankle (cm) 35 -Left Calf (cm) 36 -Left Ankle (cm) 35.5 WC - Nurse 2 - General Ulcer CM Notes Start: 03/15/18 13:50 Freq: Status: Active Protocol: Activity Type Activity Date Activity User E-Sign Co-Sign Detail Recorded Client Recorded Date Recorded By Document 03/15/18 14:27 [id number] 03/15/18 14:29 03/15/18 14:27 Wound Center Nurse 2 [Procedure/Treatment] #6 Medial RLE -Time 14:27 -Correct Patient Yes -Correct Side, Site, Position Yes -Correct Procedure Yes -Procedure Performed No -Post Debridement Size (cm) - Length 0 -Post Debridement Size (cm) - Width 0 -Post Debridement Size (cm) - Depth 0 -Total Square Cm 0 -Wound/Ulcer Outcome Healed- Epithelialized -Ulcer Cleansing Not Cleansed -Foul Odor after Cleansing No -Bioengineered Tissue No -Bleeding Controlled with NA #5 Lateral LLE -Time 14:28 -Correct Patient Yes -Correct Side, Site, Position Yes -Correct Procedure Yes -Procedure Performed No -Post Debridement Size (cm) - Length 0 -Post Debridement Size (cm) - Width 0 -Post Debridement Size (cm) - Depth 0 -Total Square Cm 0 -Wound/Ulcer Outcome Healed- Epithelialized -Foul Odor after Cleansing No -Bioengineered Tissue No -Bleeding Controlled with NA [See Physician Procedure note for Specifics] Pain Scale: 0-10 Numeric [Pain] -Is Patient Pain Free? Yes Musculoskeletal: Muscle Wasting Neurological: Cranial nerves II-XII grossly intact, Neuro grossly intact Psych/Mental Status: Normal Affect, Appropriate, Alert and oriented to time, place, person, mood and affect Debridement Note Post-Debridement Measurements/Treatment WC - Nurse 2 - General Ulcer CM Notes Start: 03/15/18 13:50 Freq: Status: Active Protocol: Activity Type Activity Date Activity User E-Sign Co-Sign Detail Recorded Client Recorded Date Recorded By Document 03/15/18 14:27 [id number] 03/15/18 14:29 PJ 03/15/18 14:27 Wound Center Nurse 2 #6 Medial RLE -Time 14:27 -Correct Patient Yes -Correct Side, Site, Position Yes -Correct Procedure Yes -Procedure Performed No -Post Debridement Size (cm) - Length 0 -Post Debridement Size (cm) - Width 0 -Post Debridement Size (cm) - Depth 0 -Total Square Cm 0 -Wound/Ulcer Outcome Healed- Epithelialized -Ulcer Cleansing Not Cleansed -Foul Odor after Cleansing No -Bioengineered Tissue No -Bleeding Controlled with NA #5 Lateral LLE -Time 14:28 -Correct Patient Yes -Correct Side, Site, Position Yes -Correct Procedure Yes -Procedure Performed No -Post Debridement Size (cm) - Length 0 -Post Debridement Size (cm) - Width 0 -Post Debridement Size (cm) - Depth 0 -Total Square Cm 0 -Wound/Ulcer Outcome Healed- Epithelialized -Foul Odor after Cleansing No -Bioengineered Tissue No -Bleeding Controlled with NA Pain Scale: 0-10 Numeric Is Patient Pain Free? Yes No debridement was completed today Assessment/Plan Active Problems Swelling of both lower extremities (Chronic) Oxygen dependent (Chronic) Physical deconditioning (Chronic) Venous stasis dermatitis (Chronic) Congestive heart failure (Chronic) Venous insufficiency (Chronic) Lymphedema (Chronic) Edema, lower extremity (Chronic) Venous insufficiency (Chronic) Assessment: This is a 77-year-old male with severe swelling, edema, and lymphedema in his lower extremities bilaterally, accompanied by a scaly, erythematous, dermatitis in both lower extremities. Based upon the patient's history, it appears as though the swelling in his lower extremities is largely due to positional factors, and related to chronic dependency and congestive heart failure. He sleeps in a recliner chronically. He also spends long hours each day in an idle sitting position. His activity is minimal, and he is not ambulating liberally, and therefore not recruiting the use of the calf and foot muscle pumps for fluid mobilization. In addition, his congestive heart failure is likely also a factor in terms of the lower extremity swelling. Routine laboratory studies have been obtained at the patient's most recent visit, with results as follows: Glucose 140, BUN 15, creatinine 0.78, total protein 7.3, albumin 3.5, calcium 9.6, AST 15, alkaline phosphatase 102, ALT 15, total bilirubin 0.90, sodium 139, potassium 4.1, chloride 95, pre-albumin 12.0, hemoglobin A1c 8.2, white blood count 5.9, hemoglobin 13.8, hematocrit 45.0, platelets 158,000. Patient has been hospitalized in recent days for treatment of congestive heart failure and nonsustained ventricular tachycardia. His order entry has said no to mechanical pneumatic compression pumps for the lower extremities. Additionally, conservatism is felt warranted in the amount of compression applied to the patient's lower extremities, to avoid precipitating congestive heart failure. Plan: The patient has been advised of the following: Activity has been encouraged. However, given his physical limitations and deconditioning, significant enhancement of activity is unlikely. Leg elevation has also been recommended. However, despite his efforts, leg elevation is not possible, as the patient states I cannot breathe. Therefore, leg elevation is unlikely to be a realistic expectation. The patient has been encouraged to sleep relatively flat position, if possible. Leg elevation to heart level, or above, has been encouraged as well during daytime hours. It is acknowledged that leg elevation may be difficult for the patient, given his history of congestive heart failure and oxygen dependence. He is under the care of a order entry in [place], [place], Dr. Schafer. Mechanical pneumatic compression pumps are to be avoided. Aggressive compression by means of graduated compression stockings and other means is also problematic. At present, the patient is using Tubigrip's, which will be continued. We are to effort to obtain CircAid compression garments for the lower extremities, which can be adjusted and titrated to the amount of compression which the patient can tolerate. The patient has been advised that he should seek medical attention should he develop some shortness of breath, chest pain, etc. We are to refer the patient to the lymphedema clinic at [facility]. Patient is to return in 2 weeks for reassessment. Once CircAid garments have been obtained, it is likely that the patient will be discharged, for follow-up thereafter as needed. In addition to the patient's relative contraindications to lower extremity compression, there is also suspected to be an element of noncompliance on the patient's part. These factors suggest a poor prognostic outlook. The patient is not a smoker. Influenza vaccine was not administered today. Patient stands 6 feet 2 inches tall. He weighs 235 pounds. His BMI is 30.2. This places him in an obese 1 category. Weight loss has been recommended, and collaboration with the patient's primary care physician has been recommended.
--- NOTE | 2018-03-15 14:50 | HP.PCM_ITS ---
(1) Swelling of both lower extremities Status: Chronic Current Visit: Yes Code(s): M79.89 - Other specified soft tissue disorders (2) BPH (benign prostatic hyperplasia) Status: Chronic Current Visit: No Code(s): N40.0 - Benign prostatic hyperplasia without lower urinary tract symptoms (3) Oxygen dependent Status: Chronic Current Visit: Yes Code(s): Z99.81 - Dependence on supplemental oxygen (4) Physical deconditioning Status: Chronic Current Visit: Yes Code(s): R53.81 - Other malaise (5) Venous stasis dermatitis Status: Chronic Current Visit: Yes Qualifiers: Laterality: bilateral Code(s): I87.2 - Venous insufficiency (chronic) (peripheral) (6) Hypertension Status: Chronic Current Visit: No Code(s): I10 - Essential (primary) hypertension (7) Malnutrition Status: Chronic Current Visit: No Code(s): E46 - Unspecified protein- calorie malnutrition (8) Congestive heart failure Status: Chronic Current Visit: Yes Code(s): I50.9 - Heart failure, unspecified (9) Diabetes mellitus with neuropathy Status: Chronic Current Visit: No Qualifiers: Diabetes mellitus type: type 2 Code(s): E11.40 - Type 2 diabetes mellitus with diabetic neuropathy, unspecified (10) Venous insufficiency Status: Suspected Current Visit: Yes (11) Lymphedema Status: Chronic Current Visit: Yes Code(s): I89.0 - Lymphedema, not elsewhere classified (12) Edema, lower extremity Status: Chronic Current Visit: Yes Code(s): R60.0 - Localized edema (13) Venous insufficiency Status: Chronic Current Visit: Yes History of Present Illness Date of Service: 03/15/18 Chief Complaint: Bilateral, chronic lower extremity swelling, edema, and lymphedema History of Wound: This 77-year-old male with significant past medical history presented for bilateral uncontrolled leg swelling, edema, and lymphedema. The swelling, edema, and lymphedema in his lower extremities has been present for at least 4 years. The patient is relatively immobile. He is minimally ambulatory. He spends long hours each day in an idle sitting position. He is also known to have congestive heart failure. He is oxygen dependent, using 4 L of oxygen by nasal cannula through most of the day. Because of his congestive heart failure, he finds it difficulty to lie in a recumbent position for extended periods of time. He denies a history of thrombophlebitis. A noninvasive lower extremity arterial study was performed in May 2017, which revealed normal resting ankle/brachial indices bilaterally. Triphasic waveforms were also noted at ankle level bilaterally. A venous duplex examination performed in May 2017 revealed incompetence of the right great saphenous vein and the right accessory saphenous vein. The left great saphenous vein below the knee was also incompetent. 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 The patient has recently been hospitalized at [facility] for 3 days, treated for acute congestive heart failure and nonsustained ventricular tachycardia. After a 3 day hospitalization, he was transferred to [facility] for further evaluation and management. 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 Is undergone right inguinal hernia repair. He also underwent tonsillectomy in the past. Allergies/Adverse Reactions: Allergies No Known Allergies Allergy (Verified 01/17/18 11:34) Home Medications: Ambulatory Orders Medication Instructions Recorded Atorvastatin Calcium [Lipitor] 40 mg PO QHS 01/17/18 Carvedilol [Coreg] 3.125 mg PO BID 01/17/18 Furosemide [Lasix] 40 mg PO DAILY 01/17/18 Glyburide 5 mg PO BID 01/17/18 Isosorbide Dinitrate [Isordil] 10 mg PO DAILY 01/17/18 L.acidoph,Paracasei, B.lactis 1 each PO DAILY 01/17/18 [Probiotic] Lisinopril/Hydrochlorothiazide 1 each PO BID 01/17/18 [Zestoretic 20-12.5 mg Tablet] Metformin HCl 500 mg PO BID 01/17/18 Polyethylene Glycol 3350 [Miralax] 17 gm PO DAILY 01/17/18 Potassium Chloride [K-Dur] 20 meq PO DAILY 01/17/18 [place] 160 mg PO BID 01/17/18 Tamsulosin HCl [Flomax] 0.4 mg PO BID 01/17/18 hydrALAZINE [Apresoline] 50 mg PO BID 01/17/18 - Family History Paternal - - The patient's father at age of 60 from a shotgun wound. The patient's mother at age of 93 with a history of diabetes mellitus. Smoking Status: Never smoker Tobacco Use: Non-smoker Review of Systems Constitutional: Denies: Chills, Fever, Weight Change Eyes: Denies: Pain, Vision Change HEENT: Denies: Difficulty Hearing, Difficulty Swallowing, Sinus Congestion Cardiovascular: Denies: Chest Pain, Palpitations Respiratory: Denies: Cough, Shortness of Breath Gastrointestinal: Denies: Diarrhea, Nausea, Vomiting Genitourinary: Denies: Dysuria, Hematuria Endocrine: Denies: Heat/ Cold Intolerance, Polydipsia, Polyuria Hematologic/ Lymphatic: Denies: Easy Bruising, Easy Bleeding - Physical Exam Vital Signs Temp Pulse Resp BP Pulse Ox 98 F 56 L 20 H 121/66 H 95 03/15/18 13:50 03/15/18 13:50 03/15/18 13:50 03/15/18 13:50 03/14/18 00:53 General: Alert, Oriented x3, Cooperative, No apparent distress, Well developed, Well nourished, - - O2 nasal cannula is in place HEENT: Atraumatic, PERRLA, EOMI, Normocephalic Oral: Moist Mucosa Neck: No JVD Lungs: Normal air movement Abdomen: Non-Distended Extremities: No clubbing, No cyanosis, No Calf Tenderness, - - Severe swelling, edema, and lymphedema is noted in the lower extremities bilaterally. There are no open wounds or ulcerations at this time. Circumferences are documented elsewhere. There is mild erythema, thought to be inflammatory rather than infectious. Skin: No breakdown Wound Measurements and Assessment WC - Nurse 1 - General Ulcer Measurement Start: 03/15/18 13:50 Freq: Status: Active Protocol: Activity Type Activity Date Activity User E-Sign Co-Sign Detail Recorded Client Recorded Date Recorded By Document 03/15/18 13:50 [facility] [id number] 03/15/18 14:03 [facility] 03/15/18 13:50 Wound Center Nurse 1 [Ulcer Assessment] #6 Medial RLE -Combined with other wound No -Current Size (cm) - Length 0 -Current Size (cm) - Width 0 -Current Size (cm) - Depth 0 -Total Square Cm 0 -Date of Last Picture (Recall this 03/15/18 field) -Epithelialization Large 67-100% #5 Lateral LLE -Combined with other wound No -Current Size (cm) - Length 0 -Current Size (cm) - Width 0 -Current Size (cm) - Depth 0 -Total Square Cm 0 -Date of Last Picture (Recall this 03/15/18 field) -Epithelialization Large 67-100% [Edema Assessment] -Lower Limb Edema Present Yes -Right Calf (cm) 41 -Right Ankle (cm) 35 -Left Calf (cm) 36 -Left Ankle (cm) 35.5 WC - Nurse 2 - General Ulcer CM Notes Start: 03/15/18 13:50 Freq: Status: Active Protocol: Activity Type Activity Date Activity User E-Sign Co-Sign Detail Recorded Client Recorded Date Recorded By Document 03/15/18 14:27 [id number] 03/15/18 14:29 03/15/18 14:27 Wound Center Nurse 2 [Procedure/Treatment] #6 Medial RLE -Time 14:27 -Correct Patient Yes -Correct Side, Site, Position Yes -Correct Procedure Yes -Procedure Performed No -Post Debridement Size (cm) - Length 0 -Post Debridement Size (cm) - Width 0 -Post Debridement Size (cm) - Depth 0 -Total Square Cm 0 -Wound/Ulcer Outcome Healed- Epithelialized -Ulcer Cleansing Not Cleansed -Foul Odor after Cleansing No -Bioengineered Tissue No -Bleeding Controlled with NA #5 Lateral LLE -Time 14:28 -Correct Patient Yes -Correct Side, Site, Position Yes -Correct Procedure Yes -Procedure Performed No -Post Debridement Size (cm) - Length 0 -Post Debridement Size (cm) - Width 0 -Post Debridement Size (cm) - Depth 0 -Total Square Cm 0 -Wound/Ulcer Outcome Healed- Epithelialized -Foul Odor after Cleansing No -Bioengineered Tissue No -Bleeding Controlled with NA [See Physician Procedure note for Specifics] Pain Scale: 0-10 Numeric [Pain] -Is Patient Pain Free? Yes Musculoskeletal: Muscle Wasting Neurological: Cranial nerves II-XII grossly intact, Neuro grossly intact Psych/Mental Status: Normal Affect, Appropriate, Alert and oriented to time, place, person, mood and affect Debridement Note Post-Debridement Measurements/Treatment WC - Nurse 2 - General Ulcer CM Notes Start: 03/15/18 13:50 Freq: Status: Active Protocol: Activity Type Activity Date Activity User E-Sign Co-Sign Detail Recorded Client Recorded Date Recorded By Document 03/15/18 14:27 [id number] 03/15/18 14:29 PJ 03/15/18 14:27 Wound Center Nurse 2 #6 Medial RLE -Time 14:27 -Correct Patient Yes -Correct Side, Site, Position Yes -Correct Procedure Yes -Procedure Performed No -Post Debridement Size (cm) - Length 0 -Post Debridement Size (cm) - Width 0 -Post Debridement Size (cm) - Depth 0 -Total Square Cm 0 -Wound/Ulcer Outcome Healed- Epithelialized -Ulcer Cleansing Not Cleansed -Foul Odor after Cleansing No -Bioengineered Tissue No -Bleeding Controlled with NA #5 Lateral LLE -Time 14:28 -Correct Patient Yes -Correct Side, Site, Position Yes -Correct Procedure Yes -Procedure Performed No -Post Debridement Size (cm) - Length 0 -Post Debridement Size (cm) - Width 0 -Post Debridement Size (cm) - Depth 0 -Total Square Cm 0 -Wound/Ulcer Outcome Healed- Epithelialized -Foul Odor after Cleansing No -Bioengineered Tissue No -Bleeding Controlled with NA Pain Scale: 0-10 Numeric Is Patient Pain Free? Yes No debridement was completed today Assessment/Plan Active Problems Swelling of both lower extremities (Chronic) Oxygen dependent (Chronic) Physical deconditioning (Chronic) Venous stasis dermatitis (Chronic) Congestive heart failure (Chronic) Venous insufficiency (Chronic) Lymphedema (Chronic) Edema, lower extremity (Chronic) Venous insufficiency (Chronic) Assessment: This is a 77-year-old male with severe swelling, edema, and lymphedema in his lower extremities bilaterally, accompanied by a scaly, erythematous, dermatitis in both lower extremities. Based upon the patient's history, it appears as though the swelling in his lower extremities is largely due to positional factors, and related to chronic dependency and congestive heart failure. He sleeps in a recliner chronically. He also spends long hours each day in an idle sitting position. His activity is minimal, and he is not ambulating liberally, and therefore not recruiting the use of the calf and foot muscle pumps for fluid mobilization. In addition, his congestive heart failure is likely also a factor in terms of the lower extremity swelling. Routine laboratory studies have been obtained at the patient's most recent visit, with results as follows: Glucose 140, BUN 15, creatinine 0.78, total protein 7.3, albumin 3.5, calcium 9.6, AST 15, alkaline phosphatase 102, ALT 15, total bilirubin 0.90, sodium 139, potassium 4.1, chloride 95, pre-albumin 12.0, hemoglobin A1c 8.2, white blood count 5.9, hemoglobin 13.8, hematocrit 45.0, platelets 158,000. Patient has been hospitalized in recent days for treatment of congestive heart failure and nonsustained ventricular tachycardia. His waiter and cashier has said no to mechanical pneumatic compression pumps for the lower extremities. Additionally, conservatism is felt warranted in the amount of compression applied to the patient's lower extremities, to avoid precipitating congestive heart failure. Plan: The patient has been advised of the following: Activity has been encouraged. However, given his physical limitations and deconditioning, significant enhancement of activity is unlikely. Leg elevation has also been recommended. However, despite his efforts, leg elevation is not possible, as the patient states I cannot breathe. Therefore, leg elevation is unlikely to be a realistic expectation. The patient has been encouraged to sleep relatively flat position, if possible. Leg elevation to heart level, or above, has been encouraged as well during daytime hours. It is acknowledged that leg elevation may be difficult for the patient, given his history of congestive heart failure and oxygen dependence. He is under the care of a waiter and cashier in [place], [place], Dr. Schafer. Mechanical pneumatic compression pumps are to be avoided. Aggressive compression by means of graduated compression stockings and other means is also problematic. At present, the patient is using Tubigrip' s, which will be continued. We are to effort to obtain CircAid compression garments for the lower extremities, which can be adjusted and titrated to the amount of compression which the patient can tolerate. The patient has been advised that he should seek medical attention should he develop some shortness of breath, chest pain, etc. We are to refer the patient to the lymphedema clinic at [facility]. Patient is to return in 2 weeks for reassessment. Once CircAid garments have been obtained, it is likely that the patient will be discharged, for follow-up thereafter as needed. In addition to the patient's relative contraindications to lower extremity compression, there is also suspected to be an element of noncompliance on the patient's part. These factors suggest a poor prognostic outlook. The patient is not a smoker. Influenza vaccine was not administered today. Patient stands 6 feet 2 inches tall. He weighs 235 pounds. His BMI is 30.2. This places him in an obese 1 category. Weight loss has been recommended, and collaboration with the patient' s primary care physician has been recommended.
[2018-03-29 12:38] VITALS: BP 141/93; PULSE 70; RESP 18; TEMP 36
--- NOTE | 2018-03-29 12:55 | PCM.WC.HP ---
(1) Swelling of both lower extremities Status: Chronic Current Visit: Yes Code(s): M79.89 - Other specified soft tissue disorders (2) BPH (benign prostatic hyperplasia) Status: Chronic Current Visit: No Code(s): N40.0 - Benign prostatic hyperplasia without lower urinary tract symptoms (3) Oxygen dependent Status: Chronic Current Visit: Yes Code(s): Z99.81 - Dependence on supplemental oxygen (4) Physical deconditioning Status: Chronic Current Visit: Yes Code(s): R53.81 - Other malaise (5) Venous stasis dermatitis Status: Chronic Current Visit: Yes Qualifiers: Laterality: bilateral Code(s): I87.2 - Venous insufficiency (chronic) (peripheral) (6) Hypertension Status: Chronic Current Visit: No Code(s): I10 - Essential (primary) hypertension (7) Malnutrition Status: Chronic Current Visit: No Code(s): E46 - Unspecified protein-calorie malnutrition (8) Congestive heart failure Status: Chronic Current Visit: Yes Code(s): I50.9 - Heart failure, unspecified (9) Diabetes mellitus with neuropathy Status: Chronic Current Visit: No Qualifiers: Diabetes mellitus type: type 2 Code(s): E11.40 - Type 2 diabetes mellitus with diabetic neuropathy, unspecified (10) Venous insufficiency Status: Chronic Current Visit: Yes (11) Lymphedema Status: Chronic Current Visit: Yes Code(s): I89.0 - Lymphedema, not elsewhere classified (12) Edema, lower extremity Status: Chronic Current Visit: Yes Code(s): R60.0 - Localized edema (13) Venous insufficiency Status: Chronic Current Visit: Yes History of Present Illness Date of Service: 03/29/18 Chief Complaint: Bilateral, chronic lower extremity swelling, edema, and lymphedema History of Wound: This 77-year-old male with significant past medical history presented for bilateral uncontrolled leg swelling, edema, and lymphedema. The swelling, edema, and lymphedema in his lower extremities has been present for at least 4 years. The patient is relatively immobile. He is minimally ambulatory. He spends long hours each day in an idle sitting position. He is also known to have congestive heart failure. He is oxygen dependent, using 4 L of oxygen by nasal cannula through most of the day. Because of his congestive heart failure, he finds it difficulty to lie in a recumbent position for extended periods of time. He denies a history of thrombophlebitis. A noninvasive lower extremity arterial study was performed in May 2017, which revealed normal resting ankle-brachial indices bilaterally. Triphasic waveforms were also noted at ankle level bilaterally. A venous duplex examination performed in May 2017 revealed incompetence of the right great saphenous vein and the right accessory saphenous vein. The left great saphenous vein below the knee was also incompetent. 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 The patient has recently been hospitalized at [facility] for 3 days, treated for acute congestive heart failure and nonsustained ventricular tachycardia. After a 3 day hospitalization, he was transferred to [facility] for further evaluation and management. 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 Is undergone right inguinal hernia repair. He also underwent tonsillectomy in the past. Allergies/Adverse Reactions: Allergies No Known Allergies Allergy (Verified 01/17/18 11:34) Home Medications: Ambulatory Orders Medication Instructions Recorded Atorvastatin Calcium [Lipitor] 40 mg PO QHS 01/17/18 Carvedilol [Coreg] 3.125 mg PO BID 01/17/18 Furosemide [Lasix] 40 mg PO DAILY 01/17/18 Glyburide 5 mg PO BID 01/17/18 Isosorbide Dinitrate [Isordil] 10 mg PO DAILY 01/17/18 L.acidoph,Paracasei, B.lactis 1 each PO DAILY 01/17/18 [Probiotic] Lisinopril/Hydrochlorothiazide 1 each PO BID 01/17/18 [Zestoretic 20-12.5 mg Tablet] Metformin HCl 500 mg PO BID 01/17/18 Polyethylene Glycol 3350 [Miralax] 17 gm PO DAILY 01/17/18 Potassium Chloride [K-Dur] 20 meq PO DAILY 01/17/18 [place] 160 mg PO BID 01/17/18 Tamsulosin HCl [Flomax] 0.4 mg PO BID 01/17/18 hydrALAZINE [Apresoline] 50 mg PO BID 01/17/18 - Family History Paternal - - The patient's father at age of 60 from a shotgun wound. The patient's mother at age of 93 with a history of diabetes mellitus. Smoking Status: Never smoker Tobacco Use: Non-smoker Review of Systems Constitutional: Denies: Chills, Fever, Weight Change Eyes: Denies: Pain, Vision Change HEENT: Denies: Difficulty Hearing, Difficulty Swallowing, Sinus Congestion Cardiovascular: Denies: Chest Pain, Palpitations Respiratory: Denies: Cough, Shortness of Breath Gastrointestinal: Denies: Diarrhea, Nausea, Vomiting Genitourinary: Denies: Dysuria, Hematuria Endocrine: Denies: Heat/ Cold Intolerance, Polydipsia, Polyuria Hematologic/ Lymphatic: Denies: Easy Bruising, Easy Bleeding - Physical Exam Vital Signs Temp Pulse Resp BP Pulse Ox 96.8 F L 70 18 141/93 H 95 03/29/18 12:38 03/29/18 12:38 03/29/18 12:38 03/29/18 12:38 03/14/18 00:53 General: Alert, Oriented x3, Cooperative, No apparent distress, Well developed, Well nourished, - - Nasal cannula is in place HEENT: Atraumatic, PERRLA, EOMI, Normocephalic Oral: Moist Mucosa Neck: No JVD Lungs: Normal air movement Abdomen: Non-Distended Extremities: No clubbing, No cyanosis, No Calf Tenderness, - - Severe swelling, edema, and lymphedema persist in the patient's lower extremities bilaterally. Chronic changes of venous stasis are noted in the lower extremities, with a scaly dermatitic pattern bilaterally. There are no open wounds or ulcerations. Wound Measurements and Assessment WC - Nurse 1 - General Ulcer Measurement Start: 03/15/18 13:50 Freq: Status: Active Protocol: Activity Type Activity Date Activity User E-Sign Co-Sign Detail Recorded Client Recorded Date Recorded By Document 03/29/18 12:38 DL [id number] 03/29/18 12:46 DL 03/29/18 12:38 Wound Center Nurse 1 [Edema Assessment] -Right Calf (cm) 35.7 -Right Ankle (cm) 34.6 -Left Calf (cm) 35.5 -Left Ankle (cm) 36 WC - Nurse 2 - General Ulcer CM Notes Start: 03/15/18 13:50 Freq: Status: Active Protocol: Activity Type Activity Date Activity User E-Sign Co-Sign Detail Recorded Client Recorded Date Recorded By Document 03/29/18 12:53 [id number] 03/29/18 12:53 03/29/18 12:53 Pain Scale: 0-10 Numeric [Pain] -Is Patient Pain Free? Yes Musculoskeletal: Muscle Wasting Neurological: Cranial nerves II-XII grossly intact, Neuro grossly intact Psych/Mental Status: Normal Affect, Appropriate, Alert and oriented to time, place, person, mood and affect Debridement Note Post-Debridement Measurements/Treatment WC - Nurse 2 - General Ulcer CM Notes Start: 03/15/18 13:50 Freq: Status: Active Protocol: Activity Type Activity Date Activity User E-Sign Co-Sign Detail Recorded Client Recorded Date Recorded By Document 03/15/18 14:27 [id number] 03/15/18 14:29 JS Document 03/29/18 12:53 [id number] 03/29/18 12:53 03/15/18 03/29/18 14:27 12:53 Wound Center Nurse 2 #6 Medial RLE -Time 14:27 -Correct Patient Yes -Correct Side, Site, Position Yes -Correct Procedure Yes -Procedure Performed No -Post Debridement Size (cm) - Length 0 -Post Debridement Size (cm) - Width 0 -Post Debridement Size (cm) - Depth 0 -Total Square Cm 0 -Wound/Ulcer Outcome Healed- Epithelialized -Ulcer Cleansing Not Cleansed -Foul Odor after Cleansing No -Bioengineered Tissue No -Bleeding Controlled with NA #5 Lateral LLE -Time 14:28 -Correct Patient Yes -Correct Side, Site, Position Yes -Correct Procedure Yes -Procedure Performed No -Post Debridement Size (cm) - Length 0 -Post Debridement Size (cm) - Width 0 -Post Debridement Size (cm) - Depth 0 -Total Square Cm 0 -Wound/Ulcer Outcome Healed- Epithelialized -Foul Odor after Cleansing No -Bioengineered Tissue No -Bleeding Controlled with NA Pain Scale: 0-10 Numeric Is Patient Pain Free? Yes Yes No debridement was completed today Assessment/Plan Active Problems Swelling of both lower extremities (Chronic) Oxygen dependent (Chronic) Physical deconditioning (Chronic) Venous stasis dermatitis (Chronic) Congestive heart failure (Chronic) Venous insufficiency (Chronic) Lymphedema (Chronic) Edema, lower extremity (Chronic) Venous insufficiency (Chronic) Assessment: This is a 77-year-old male with severe swelling, edema, and lymphedema in his lower extremities bilaterally, accompanied by a scaly, erythematous, dermatitis in both lower extremities. Based upon the patient's history, it appears as though the swelling in his lower extremities is largely due to positional factors, and related to chronic dependency and congestive heart failure. He sleeps in a recliner chronically. He also spends long hours each day in an idle sitting position. His activity is minimal, and he is not ambulating liberally, and therefore not recruiting the use of the calf and foot muscle pumps for fluid mobilization. In addition, his congestive heart failure is likely also a factor in terms of the lower extremity swelling. Routine laboratory studies have been obtained, with results as follows: Glucose 140, BUN 15, creatinine 0.78, total protein 7.3, albumin 3.5, calcium 9.6, AST 15, alkaline phosphatase 102, ALT 15, total bilirubin 0.90, sodium 139, potassium 4.1, chloride 95, pre-albumin 12.0, hemoglobin A1c 8.2, white blood count 5.9, hemoglobin 13.8, hematocrit 45.0, platelets 158,000. Patient has been recently hospitalized for treatment of congestive heart failure and nonsustained ventricular tachycardia. His transportation agent has said no to mechanical pneumatic compression pumps for the lower extremities. Additionally, conservatism is felt warranted in the amount of compression applied to the patient's lower extremities, to avoid precipitating congestive heart failure. The patient has now received his Velcro CircAid compression garments. Plan: The patient has been advised of the following: Activity has been encouraged. However, given his physical limitations and deconditioning, significant enhancement of activity is unlikely. Leg elevation has also been recommended. However, despite his efforts, leg elevation is not possible, as the patient states I cannot breathe. Therefore, leg elevation is unlikely to be a realistic expectation. The patient has been encouraged to sleep relatively flat position, if possible. Leg elevation to heart level, or above, has been encouraged as well during daytime hours. It is acknowledged that leg elevation may be difficult for the patient, given his history of congestive heart failure and oxygen dependence. He is under the care of a transportation agent in [place], Dr. Schafer. Mechanical pneumatic compression pumps are to be avoided. Aggressive compression by means of graduated compression stockings and other means is also problematic. The patient has received his Velcro CircAid compression garments, which are to be implemented. The patient is to be instructed as to their appropriate use. These will be titrated to the amount of compression which the patient can tolerate. The patient has been advised that he should seek medical attention should he develop some shortness of breath, chest pain, etc. the patient has been evaluated and management recently initiated at the lymphedema clinic at [facility]. In addition to the patient's relative contraindications to lower extremity mechanical pneumatic compression, there is also suspected to be an element of noncompliance on the patient's part. These factors suggest a poor prognostic outlook. It is noted that the patient's toenails are extremely long, and an appointment with a cloth designer has been recommended for trimming of his toenails. This should be a benefit of his insurance, as he is diabetic. The patient is to follow-up in approximately 3 weeks, at which time we will reevaluate and determine the benefits of the CircAid compression garments. Ultimately, discharge is anticipated. The patient is not a smoker. Influenza vaccine was not administered today. Patient stands 6 feet 2 inches tall. He weighs 235 pounds. His BMI is 30.2. This places him in an obese 1 category. Weight loss has been recommended, and collaboration with the patient's primary care physician has been recommended.
--- NOTE | 2018-03-29 13:03 | HP.PCM_ITS ---
(1) Swelling of both lower extremities Status: Chronic Current Visit: Yes Code(s): M79.89 - Other specified soft tissue disorders (2) BPH (benign prostatic hyperplasia) Status: Chronic Current Visit: No Code(s): N40.0 - Benign prostatic hyperplasia without lower urinary tract symptoms (3) Oxygen dependent Status: Chronic Current Visit: Yes Code(s): Z99.81 - Dependence on supplemental oxygen (4) Physical deconditioning Status: Chronic Current Visit: Yes Code(s): R53.81 - Other malaise (5) Venous stasis dermatitis Status: Chronic Current Visit: Yes Qualifiers: Laterality: bilateral Code(s): I87.2 - Venous insufficiency (chronic) (peripheral) (6) Hypertension Status: Chronic Current Visit: No Code(s): I10 - Essential (primary) hypertension (7) Malnutrition Status: Chronic Current Visit: No Code(s): E46 - Unspecified protein- calorie malnutrition (8) Congestive heart failure Status: Chronic Current Visit: Yes Code(s): I50.9 - Heart failure, unspecified (9) Diabetes mellitus with neuropathy Status: Chronic Current Visit: No Qualifiers: Diabetes mellitus type: type 2 Code(s): E11.40 - Type 2 diabetes mellitus with diabetic neuropathy, unspecified (10) Venous insufficiency Status: Chronic Current Visit: Yes (11) Lymphedema Status: Chronic Current Visit: Yes Code(s): I89.0 - Lymphedema, not elsewhere classified (12) Edema, lower extremity Status: Chronic Current Visit: Yes Code(s): R60.0 - Localized edema (13) Venous insufficiency Status: Chronic Current Visit: Yes History of Present Illness Date of Service: 03/29/18 Chief Complaint: Bilateral, chronic lower extremity swelling, edema, and lymphedema History of Wound: This 77-year-old male with significant past medical history presented for bilateral uncontrolled leg swelling, edema, and lymphedema. The swelling, edema, and lymphedema in his lower extremities has been present for at least 4 years. The patient is relatively immobile. He is minimally ambulatory. He spends long hours each day in an idle sitting position. He is also known to have congestive heart failure. He is oxygen dependent, using 4 L of oxygen by nasal cannula through most of the day. Because of his congestive heart failure, he finds it difficulty to lie in a recumbent position for extended periods of time. He denies a history of thrombophlebitis. A noninvasive lower extremity arterial study was performed in May 2017, which revealed normal resting ankle-brachial indices bilaterally. Triphasic waveforms were also noted at ankle level bilaterally. A venous duplex examination performed in May 2017 revealed incompetence of the right great saphenous vein and the right accessory saphenous vein. The left great saphenous vein below the knee was also incompetent. 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 The patient has recently been hospitalized at [facility] for 3 days, treated for acute congestive heart failure and nonsustained ventricular tachycardia. After a 3 day hospitalization, he was transferred to [facility] for further evaluation and management. 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 Is undergone right inguinal hernia repair. He also underwent tonsillectomy in the past. Allergies/Adverse Reactions: Allergies No Known Allergies Allergy (Verified 01/17/18 11:34) Home Medications: Ambulatory Orders Medication Instructions Recorded Atorvastatin Calcium [Lipitor] 40 mg PO QHS 01/17/18 Carvedilol [Coreg] 3.125 mg PO BID 01/17/18 Furosemide [Lasix] 40 mg PO DAILY 01/17/18 Glyburide 5 mg PO BID 01/17/18 Isosorbide Dinitrate [Isordil] 10 mg PO DAILY 01/17/18 L.acidoph,Paracasei, B.lactis 1 each PO DAILY 01/17/18 [Probiotic] Lisinopril/Hydrochlorothiazide 1 each PO BID 01/17/18 [Zestoretic 20-12.5 mg Tablet] Metformin HCl 500 mg PO BID 01/17/18 Polyethylene Glycol 3350 [Miralax] 17 gm PO DAILY 01/17/18 Potassium Chloride [K-Dur] 20 meq PO DAILY 01/17/18 [place] 160 mg PO BID 01/17/18 Tamsulosin HCl [Flomax] 0.4 mg PO BID 01/17/18 hydrALAZINE [Apresoline] 50 mg PO BID 01/17/18 - Family History Paternal - - The patient's father at age of 60 from a shotgun wound. The patient's mother at age of 93 with a history of diabetes mellitus. Smoking Status: Never smoker Tobacco Use: Non-smoker Review of Systems Constitutional: Denies: Chills, Fever, Weight Change Eyes: Denies: Pain, Vision Change HEENT: Denies: Difficulty Hearing, Difficulty Swallowing, Sinus Congestion Cardiovascular: Denies: Chest Pain, Palpitations Respiratory: Denies: Cough, Shortness of Breath Gastrointestinal: Denies: Diarrhea, Nausea, Vomiting Genitourinary: Denies: Dysuria, Hematuria Endocrine: Denies: Heat/ Cold Intolerance, Polydipsia, Polyuria Hematologic/ Lymphatic: Denies: Easy Bruising, Easy Bleeding - Physical Exam Vital Signs Temp Pulse Resp BP Pulse Ox 96.8 F L 70 18 141/93 H 95 03/29/18 12:38 03/29/18 12:38 03/29/18 12:38 03/29/18 12:38 03/14/18 00:53 General: Alert, Oriented x3, Cooperative, No apparent distress, Well developed, Well nourished, - - Nasal cannula is in place HEENT: Atraumatic, PERRLA, EOMI, Normocephalic Oral: Moist Mucosa Neck: No JVD Lungs: Normal air movement Abdomen: Non-Distended Extremities: No clubbing, No cyanosis, No Calf Tenderness, - - Severe swelling, edema, and lymphedema persist in the patient's lower extremities bilaterally. Chronic changes of venous stasis are noted in the lower extremities, with a scaly dermatitic pattern bilaterally. There are no open wounds or ulcerations. Wound Measurements and Assessment WC - Nurse 1 - General Ulcer Measurement Start: 03/15/18 13:50 Freq: Status: Active Protocol: Activity Type Activity Date Activity User E-Sign Co-Sign Detail Recorded Client Recorded Date Recorded By Document 03/29/18 12:38 DL [id number] 03/29/18 12:46 DL 03/29/18 12:38 Wound Center Nurse 1 [Edema Assessment] -Right Calf (cm) 35.7 -Right Ankle (cm) 34.6 -Left Calf (cm) 35.5 -Left Ankle (cm) 36 WC - Nurse 2 - General Ulcer CM Notes Start: 03/15/18 13:50 Freq: Status: Active Protocol: Activity Type Activity Date Activity User E-Sign Co-Sign Detail Recorded Client Recorded Date Recorded By Document 03/29/18 12:53 [id number] 03/29/18 12:53 03/29/18 12:53 Pain Scale: 0-10 Numeric [Pain] -Is Patient Pain Free? Yes Musculoskeletal: Muscle Wasting Neurological: Cranial nerves II-XII grossly intact, Neuro grossly intact Psych/Mental Status: Normal Affect, Appropriate, Alert and oriented to time, place, person, mood and affect Debridement Note Post-Debridement Measurements/Treatment WC - Nurse 2 - General Ulcer CM Notes Start: 03/15/18 13:50 Freq: Status: Active Protocol: Activity Type Activity Date Activity User E-Sign Co-Sign Detail Recorded Client Recorded Date Recorded By Document 03/15/18 14:27 [id number] 03/15/18 14:29 JS Document 03/29/18 12:53 [id number] 03/29/18 12:53 03/15/18 03/29/18 14:27 12:53 Wound Center Nurse 2 #6 Medial RLE -Time 14:27 -Correct Patient Yes -Correct Side, Site, Position Yes -Correct Procedure Yes -Procedure Performed No -Post Debridement Size (cm) - Length 0 -Post Debridement Size (cm) - Width 0 -Post Debridement Size (cm) - Depth 0 -Total Square Cm 0 -Wound/Ulcer Outcome Healed- Epithelialized -Ulcer Cleansing Not Cleansed -Foul Odor after Cleansing No -Bioengineered Tissue No -Bleeding Controlled with NA #5 Lateral LLE -Time 14:28 -Correct Patient Yes -Correct Side, Site, Position Yes -Correct Procedure Yes -Procedure Performed No -Post Debridement Size (cm) - Length 0 -Post Debridement Size (cm) - Width 0 -Post Debridement Size (cm) - Depth 0 -Total Square Cm 0 -Wound/Ulcer Outcome Healed- Epithelialized -Foul Odor after Cleansing No -Bioengineered Tissue No -Bleeding Controlled with NA Pain Scale: 0-10 Numeric Is Patient Pain Free? Yes Yes No debridement was completed today Assessment/Plan Active Problems Swelling of both lower extremities (Chronic) Oxygen dependent (Chronic) Physical deconditioning (Chronic) Venous stasis dermatitis (Chronic) Congestive heart failure (Chronic) Venous insufficiency (Chronic) Lymphedema (Chronic) Edema, lower extremity (Chronic) Venous insufficiency (Chronic) Assessment: This is a 77-year-old male with severe swelling, edema, and lymphedema in his lower extremities bilaterally, accompanied by a scaly, erythematous, dermatitis in both lower extremities. Based upon the patient's history, it appears as though the swelling in his lower extremities is largely due to positional factors, and related to chronic dependency and congestive heart failure. He sleeps in a recliner chronically. He also spends long hours each day in an idle sitting position. His activity is minimal, and he is not ambulating liberally, and therefore not recruiting the use of the calf and foot muscle pumps for fluid mobilization. In addition, his congestive heart failure is likely also a factor in terms of the lower extremity swelling. Routine laboratory studies have been obtained, with results as follows: Glucose 140, BUN 15, creatinine 0.78, total protein 7.3, albumin 3.5, calcium 9.6, AST 15, alkaline phosphatase 102, ALT 15, total bilirubin 0.90, sodium 139, potassium 4.1, chloride 95, pre-albumin 12.0, hemoglobin A1c 8.2, white blood count 5.9, hemoglobin 13.8, hematocrit 45.0, platelets 158,000. Patient has been recently hospitalized for treatment of congestive heart failure and nonsustained ventricular tachycardia. His relocation director has said no to mechanical pneumatic compression pumps for the lower extremities. Additionally, conservatism is felt warranted in the amount of compression applied to the patient's lower extremities, to avoid precipitating congestive heart failure. The patient has now received his Velcro CircAid compression garments. Plan: The patient has been advised of the following: Activity has been encouraged. However, given his physical limitations and deconditioning, significant enhancement of activity is unlikely. Leg elevation has also been recommended. However, despite his efforts, leg elevation is not possible, as the patient states I cannot breathe. Therefore, leg elevation is unlikely to be a realistic expectation. The patient has been encouraged to sleep relatively flat position, if possible. Leg elevation to heart level, or above, has been encouraged as well during daytime hours. It is acknowledged that leg elevation may be difficult for the patient, given his history of congestive heart failure and oxygen dependence. He is under the care of a relocation director in [place], [place], Dr. Schafer. Mechanical pneumatic compression pumps are to be avoided. Aggressive compression by means of graduated compression stockings and other means is also problematic. The patient has received his Velcro CircAid compression garments, which are to be implemented. The patient is to be instructed as to their appropriate use. These will be titrated to the amount of compression which the patient can tolerate. The patient has been advised that he should seek medical attention should he develop some shortness of breath, chest pain, etc. the patient has been evaluated and management recently initiated at the lymphedema clinic at [facility]. In addition to the patient's relative contraindications to lower extremity mechanical pneumatic compression, there is also suspected to be an element of noncompliance on the patient's part. These factors suggest a poor prognostic outlook. It is noted that the patient's toenails are extremely long, and an appointment with a tree chipper has been recommended for trimming of his toenails. This should be a benefit of his insurance, as he is diabetic. The patient is to follow-up in approximately 3 weeks, at which time we will reevaluate and determine the benefits of the CircAid compression garments. Ultimately, discharge is anticipated. The patient is not a smoker. Influenza vaccine was not administered today. Patient stands 6 feet 2 inches tall. He weighs 235 pounds. His BMI is 30.2. This places him in an obese 1 category. Weight loss has been recommended, and collaboration with the patient's primary care physician has been recommended.
== END 2018-04-13 23:59 ==
LOC: WC 12:30
PROVIDERS: Visit Provider Surgery
DX: I89.0 Lymphedema, not elsewhere classified (principal); E11.40 Type 2 diabetes mellitus with diabetic neuropathy, unspecified; R60.0 Localized edema; M79.89 Other specified soft tissue disorders; I11.0 Hypertensive heart disease with heart failure; I50.9 Heart failure, unspecified; N40.0 Benign prostatic hyperplasia without lower urinary tract symptoms; I87.2 Venous insufficiency (chronic) (peripheral); Z99.81 Dependence on supplemental oxygen; Z79.899 Other long term (current) drug therapy; Z79.84 Long term (current) use of oral hypoglycemic drugs
CPT/HCPCS: 99211; 99212; G0463

== ENCOUNTER 2018-04-26 11:01 | Outpatient (RCR) | payer MEDICARE, SELFPAY ==
[2018-04-14 00:52] VITALS: BP 141/93; PULSE 70; RESP 18; TEMP 36; O2SAT 95
== END 2018-05-14 23:59 ==
LOC: WC 11:01
PROVIDERS: Visit Provider Surgery
DX: Z09 Encounter for follow-up examination after completed treatment for conditions other than malignant neoplasm (principal)

== ENCOUNTER 2018-12-21 09:48 | Outpatient (RCR) | payer MEDICARE, SELFPAY ==
--- NOTE | 2018-12-21 10:14 | WC ---
pt in wound center waiting room sitting in walker seat. At approx 10:04 pt states he became faint found pt on floor pt awake coherent and had small abrasion on L forehead . pt denies pain. 169/117 pulse 38. pulse ox 93% OT 194. temp 98. nurse manager fixed income aware and sitting with pt. Squad arrived at 10:12am pt assessed per squad and taken to hospital per ambulance.
[2018-12-21 10:16] LABS: Bedside Glucose 194 mg/dL (70-110)
== END 2019-01-11 23:59 ==
LOC: WC 09:48
PROVIDERS: Visit Provider Surgery
DX: Z09 Encounter for follow-up examination after completed treatment for conditions other than malignant neoplasm (principal)
CPT/HCPCS: 82962

== ENCOUNTER 2018-12-21 10:28 | Observation (INO) | payer MEDICARE, SELFPAY ==
[2018-12-21] VITALS (16 sets, daily range): BP systolic 93–157; BP diastolic 69–107; PULSE 76–92; RESP 16–27; TEMP 36.1–36.4; O2SAT 97–100; BMI 39.3; BMI 36.7; BMI 36.8
--- NOTE | 2018-12-21 10:37 | EKG12_ITS ---
Test Reason : CP Blood Pressure : / mmHG Vent. Rate : 084 BPM Atrial Rate : 051 BPM P-R Int : 000 ms QRS Dur : 164 ms QT Int : 416 ms P-R-T Axes : 000 -63 104 degrees QTc Int : 491 ms Atrial fibrillation Left axis deviation Right bundle branch block Moderate voltage criteria for LVH, may be normal variant Inferior infarct , age undetermined Anterolateral infarct , age undetermined Abnormal ECG Confirmed by MIGEL MILLIGAN, KAYLAN ([id number]), editor producer NURY GARCIA ([id number]) on 12/27/2018 3:50:16 PM Referred By: MINISTERIO Confirmed By:KAYLAN LAINEZ MD
--- NOTE | 2018-12-21 10:41 | ED.VISSUMM ---
- ER Visit Summary Date of Service: 12/21/18 Chief Complaint: Syncope History of Present Illness: The patient is a 78 M with 2 episodes of syncope prior to arrival. The first episode was while he was waiting for wound center, the second episode was in the EMS, this was documented on the monitor with concurrent sinus pause and severe bradycardia into the 20s which self resolved. Patient feels weak. He denies any chest pain. Denies fever or chills. He does have a history of CHF. Physical Examination: On my immediate exam he appeared slightly pale, chronically ill. He has a left forehead abrasion likely secondary to fall. He has no C-spine pain. He had an irregular rhythm in the 80s, he had coarse bilateral breath sounds. He had no abdominal pain. He has bilateral lymphedema, chronic wounds on both feet as well as both legs. Emergency Department Course and Treatment: Patient was observed in the emergency department he does not have any electrolyte abnormalities. He has a history of A. fib, he has remained in A. fib during the emergency department stay. He is anticoagulated with Eliquis. I discussed the patient with Dr. Smith, we will admit, if no other abnormalities are found it is highly likely that the patient will get a pacemaker. Disposition: Admit in guarded condition Impression: Bradycardia Sinus pause Critical care time 30 minutes This note was generated with [employer] dictation software. It may contain incorrect words, spelling, and punctuation that were not noted in review of the chart prior to signing ED Disposition - Plan for ED Patient: Referrals: [facility] Doctor,Out of [Primary Care Provider] -
[2018-12-21 10:48] LABS: Absolute Lymphocyte Count 1.22 X10^3/ul (0.83-4.51); Absolute Neutrophil Count 6.2 X10^3/uL (2.0-7.7); Basophil# 0.01 X10^3/uL; Basophil% 0.1 % (0-1); Eosinophil# 0.12 X10^3/uL; Eosinophils% 1.4 % (0-5); Hematocrit 44.5 % (40-54); Hemoglobin 14.3 g/dl (13.0-16.5); Lymphocyte # 1.22 X10^3/ul (4.0); Lymphocyte % 14.4 % (19-41); Mean Corp Hgb Conc 32.1 g/gl (32-36); Mean Corpuscular Hgb 31.3 pg (27.0-32.0); Mean Corpuscular Volume 97.4 fL (80-94); Mean Platelet Vol. 11.3 fl (6.2-12.0); Monocyte# 0.95 X10^3/uL; Monocyte% 11.2 % (0-10); Neutrophil # 6.18 X10^3/uL (2.7-7.7); Neutrophil % 72.8 % (47-70); Platelet Count 183 K/mm3 (150-450); RBC Distribution Width CV 13.7 % (11.6-14.6); RBC Distribution Width SD 48.6 fl (35.1-43.9); Red Blood Count 4.57 M/mm3 (4.6-6.2); White Blood Count 8.5 K/mm3 (4.4-11.0)
--- NOTE | 2018-12-21 10:49 | ED.DCSUM_ITS ---
- ER Visit Summary Date of Service: 12/21/18 Chief Complaint: Syncope History of Present Illness: The patient is a 78 M with 2 episodes of syncope prior to arrival. The first episode was while he was waiting for wound center, the second episode was in the EMS, this was documented on the monitor with concurrent sinus pause and severe bradycardia into the 20s which self resolved. Patient feels weak. He denies any chest pain. Denies fever or chills. He does have a history of CHF. Physical Examination: On my immediate exam he appeared slightly pale, chronically ill. He has a left forehead abrasion likely secondary to fall. He has no C-spine pain. He had an irregular rhythm in the 80s, he had coarse bilateral breath sounds. He had no abdominal pain. He has bilateral lymphedema, chronic wounds on both feet as well as both legs. Emergency Department Course and Treatment: Patient was observed in the emergency department he does not have any electrolyte abnormalities. He has a history of A. fib, he has remained in A. fib during the emergency department stay. He is anticoagulated with Eliquis. I discussed the patient with Dr. Smith, we will admit, if no other abnormalities are found it is highly likely that the pa yo will get a pacemaker. Disposition: Admit in guarded condition Impression: Bradycardia Sinus pause Critical care time 30 minutes This note was generated with [employer] dictation software. It may contain incorrect words, spelling, and punctuation that were not noted in review of the chart prior to signing ED Disposition - Plan for ED Patient: Referrals: [facility] Doctor,Out of [Primary Care Provider] -
[2018-12-21] MEDS: Aspirin 81 MG TAB.CHEW 324 MG PO (10:52)
[2018-12-21 10:54] LABS: International Normalized Ratio 1.4; Prothrombin Time (Protime)PT. 16.8 SECONDS (11.7-14.9)
[2018-12-21 10:59] LABS: POSITIVE COUNT NO; POSITIVE DIFFERENTIAL NO; POSITIVE MORPHOLOGY NO
[2018-12-21 11:04] LABS: Anion Gap 3 (5-15); BUN 35 mg/dL (7-18); BUN/Creat Ratio 27.8 RATIO (10-20); Calcium,Total 9.3 mg/dL (8.5-10.1); Chloride 99 mmol/L (98-107); Creatinine, Serum 1.26 mg/dL (0.70-1.30); EST Glomerular Filtration Rate 59 mL/min (>60); Est Glom Filt Rate - Afr Amer 72 mL/min (>60); Estimated Creatinine Clearance 46.63 ml/min; Glucose 228 mg/dL (74-106); Potassium 4.4 mmol/L (3.5-5.1); Sodium Level 136 mmol/L (136-145)
--- NOTE | 2018-12-21 11:11 | RAD_ITS ---
STUDY: X-RAY CHEST REASON FOR EXAM: Male, 78 years old. Chest pain. TECHNIQUE: Single AP portable view of the chest. COMPARISON: Comparison is made with prior examination dated February 20, 2018. FINDINGS: EKG electrodes are seen. Limited inspiratory effort with increased markings at the lung bases suggestive of the linear bibasilar atelectasis. Mild degree of vascular congestion. Blunting of the left cosmetic angle. There is moderate cardiac enlargement. Normal mediastinum and molly. There is prominence of the pulmonary hilar arteries without peripheral pulmonary vascular congestion, suggesting pulmonary hypertension. This is worse on the left side. There is atherosclerotic calcification of the aortic arch with tortuosity. There are diffuse degenerative changes of the visualized thoracic spine. Normal visualized ribs, clavicles, and shoulders. There is no demonstrated abnormality of the visualized soft tissue structures of the upper abdomen. RAD/Chest 1 View (Portable) IMPRESSION: Poor inspiratory effort with bibasilar atelectasis. Prominence of the pulmonary arteries worse on the left side. Electronically Signed: Yoan Moreau, at 11:09 EDT , Service support ,
--- NOTE | 2018-12-21 12:56 | CT_ITS ---
STUDY: CT BRAIN WITHOUT CONTRAST REASON FOR EXAM: Male, 78 years old. Syncopal episodes. Bradycardia. RADIATION DOSAGE (If Supplied By Facility): CTDIvol = ( 44.99 ) mGy, DLP = ( 880.47 ) mGycm TECHNIQUE: Transaxial CT imaging of the brain was performed without administration of intravenous contrast material. Individualized dose optimization techniques were used for this CT. COMPARISON: No relevant priors. FINDINGS: Normal soft tissue structures. There is hyperostosis frontalis internus. There is mild cerebral atrophy with widening of the extra-axial spaces and ventricular dilatation. Normal white matter tracts of the cerebral hemispheres. Tiny lacuna in the right basal ganglion. The age cannot be determined due to no prior exam is available for comparison. Normal brainstem. Normal cerebellum. There is no intracranial hemorrhage. There are no findings of an acute ischemic infarction. Atherosclerotic calcification of the vertebral arteries and cavernous portions of the internal carotid arteries bilaterally. Normal visualized paranasal sinuses. CT/Brain/Head without Contrast IMPRESSION: Chronic involutional changes of the brain. Tiny lacuna in the right basal ganglia. Electronically Signed: Yoan Moreau, at 14:07 EDT , Service support ,
[2018-12-21] MEDS: Morphine 4 MG/ML Syringe IV (12:57)
[2018-12-21] MEDS: Ondansetron 4 MG/2 ML Vial IV (12:57)
--- NOTE | 2018-12-21 13:01 | PCM.HP.STD ---
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 Status: Chronic (3) Chronic ulcer of right leg with fat layer exposed Status: Chronic (4) Congestive heart failure Status: Chronic (5) Delayed wound healing Status: Chronic (6) Diabetes mellitus with neuropathy Status: Chronic (7) Edema, lower extremity Status: Chronic (8) Hypertension Status: Chronic (9) Inguinal hernia Status: Chronic (10) Lymphedema Status: Chronic (11) Malnutrition Status: Chronic (12) Oxygen dependent Status: Chronic (13) Physical deconditioning Status: Chronic (14) Swelling of both lower extremities Status: Chronic (15) Venous insufficiency Status: Chronic (16) Venous insufficiency Status: Chronic (17) Venous stasis dermatitis Status: Chronic Qualifiers: (18) Peripheral vascular disease Status: Suspected (19) Syncope and collapse Status: Acute (20) AV block Status: Acute (21) Sinus pause Status: Acute (22) Paroxysmal A-fib Status: Chronic History of Present Illness Date of Admission: 12/21/18 Chief Complaint: Passed Out The patient is a 78 year old M who comorbidities including diabetes mellitus type 2, venous insufficiency with chronic stasis dermatitis who follows up with the wound care center was brought to the emergency department after patient passed out. 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 Review of the strips demonstrated significant sinus pauses lasting up to 5 seconds. Patient apparently had a similar episode while was in the emergency department but did not lose consciousness. Decision was made to admit patient to the intensive care unit with consultation placed to cardiology. Past Medical History Past Medical History (Chronic Problems): Chronic Problems Swelling of both lower extremities (Chronic) BPH (benign prostatic hyperplasia) (Chronic) Inguinal hernia (Chronic) Oxygen dependent (Chronic) Physical deconditioning (Chronic) Venous stasis dermatitis (Chronic) Hypertension (Chronic) Paroxysmal A-fib (Chronic) Delayed wound healing (Chronic) Malnutrition (Chronic) Congestive heart failure (Chronic) Diabetes mellitus with neuropathy (Chronic) 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 (Chronic) Chronic ulcer of right leg with fat layer exposed (Chronic) Venous insufficiency (Chronic) Lymphedema (Chronic) Edema, lower extremity (Chronic) Venous insufficiency (Chronic) Allergies No Known Allergies Allergy (Verified 01/17/18 11:34) Home Medications: Ambulatory Orders Medication Instructions Recorded Carvedilol [Coreg] 3.125 mg PO BID 01/17/18 Furosemide [Lasix] 40 mg PO DAILY 01/17/18 Glyburide 5 mg PO BID 01/17/18 Isosorbide Dinitrate [Isordil] 10 mg PO DAILY 01/17/18 L.acidoph,Paracasei, B.lactis 1 each PO DAILY 01/17/18 [Probiotic] Lisinopril/Hydrochlorothiazide 1 each PO BID 01/17/18 [Zestoretic 20-12.5 mg Tablet] Metformin HCl 500 mg PO BID 01/17/18 Polyethylene Glycol 3350 [Miralax] 17 gm PO DAILY 01/17/18 Potassium Chloride [K-Dur] 20 meq PO DAILY 01/17/18 Saw [place] 160 mg PO BID 01/17/18 Tamsulosin HCl [Flomax] 0.4 mg PO BID 01/17/18 hydrALAZINE [Apresoline] 50 mg PO BID 01/17/18 Surgical History: - - The patient has undergone removal of a plantars wart on his right foot in the remote past. Is undergone right inguinal hernia repair. He also underwent tonsillectomy in the past. Smoking Status: Never smoker - *Family History Paternal History Items: - - The patient's father at age of 60 from a shotgun wound. The patient's mother at age of 93 with a history of diabetes mellitus. Review of Systems Constitutional: Denies: Anorexia, Chills, Fever, Night Sweats, Weight Change HEENT: Denies: Head Aches, Sinus Congestion, Sinus Drainage Cardiovascular: Reports: Syncope. Denies: Chest Pain, Orthopnea, Palpitations, Paroxysmal Noc. Dyspnea Respiratory: Denies: Cough, Shortness of breath at rest, Shortness of breath upon exertion, Sputum production Gastrointestinal: Denies: Abdominal Pain, Hematemesis, Hematochezia, Nausea, Melena, Vomiting Genitourinary: Denies: Dysuria, Frequency, Hematuria, Urgency Musculoskeletal: Denies: Joint Pain, Joint Tenderness Skin: Reports: Skin Changes. Denies: Rash Neurological: Denies: Focal weakness, Numbness, Tingling Psychiatric: Denies: Homicidal Ideations, Suicidal Ideations Hematologic/ Lymphatic: Denies: Easy Bruising, Easy Bleeding VTE Information - Inpt Only VTE Present on Admission: No VTE Mechan Device Prophylaxis: Knee High ADRIANA Hose VTE Pharm Prophylaxis ordered?: Yes Patient Problems: Active and Suspected Problems Syncope and collapse (Acute) AV block (Acute) Sinus pause (Acute) Objective: GENERAL: cooperative HEENT: Left frontal scalp abrasion with some swelling EYES; Anicteric, Normal Conjunctiva NECK; supple, normal thyroid, RESPIRATORY: Diminished to auscultation bilaterally, CARDIOVASCULAR: Irregular S1 S2, GI: soft, non-tender, normoactive bowel sounds, : No Renal angle tenderness; EXTREMITIES: Bilateral stasis dermatitis. MUSCULOSKELETAL: No Joint Tenderness; NEURO: Awake; no lateralizing signs. SKIN: As discussed above PSYCH; Normal affect - Physical Exam Vital Signs Temp Pulse Resp BP Pulse Ox 97.4 F L 78 24 H 150/95 H 100 12/21/18 10:30 12/21/18 12:41 12/21/18 12:41 12/21/18 12:41 12/21/18 12:41 Oxygen Flow Rate (L/min) 3 Oxygen Delivery Method Nasal Cannula Weight: 113.9 kg Body Mass Index (BMI) 39.3 Laboratory Tests Past 24 Hrs 12/21/18 12/21/18 12/21/18 10:40 10:40 10:40 WBC 8.5 RBC 4.57 L Hgb 14.3 Hct 44.5 MCV 97.4 H MCH 31.3 MCHC 32.1 RDW 13.7 RDW Differential 48.6 H Plt Count 183 MPV 11.3 Immature Gran % (Auto) 0.100 Neut % (Auto) 72.8 H Lymph % (Auto) 14.4 L [place] % (Auto) 11.2 H Eos % (Auto) 1.4 Baso % (Auto) 0.1 Absolute Neuts (auto) 6.2 Absolute Lymphs (auto) 1.22 Total Counted Not Reportable PT 16.8 H INR 1.4 Sodium 136 Potassium 4.4 Chloride 99 Carbon Dioxide 34.0 H Anion Gap 3 L BUN 35 H Creatinine 1.26 Estim Creat Clear Calc 46.63 Est GFR (MDRD) Af Amer 72 Est GFR (MDRD) Non-Af 59 L BUN/Creatinine Ratio 27.8 H Glucose 228 H Calcium 9.3 Magnesium 2.0 Troponin I < 0.015 Assessment/Plan All Active Problems Syncope and collapse (Acute) AV block (Acute) Sinus pause (Acute) Ulcer of right foot with fat layer exposed (Resolved) Patient is a 78-year-old gentleman presented with a syncopal episode telemetry monitoring in the emergency department demonstrated significant sinus pauses. Next 1. Syncopal episode secondary to high degree AV block. Patient has been admitted to intensive care unit for observation. As part of his workup ordered serial cardiac enzymes 2D echo and electrolytes. Consultation placed to cardiology Case discussed with Dr. Smith with plans to consult Dr. Garcia for consideration for possible pacemaker placement 2. Paroxysmal atrial fibrillation with tachybradycardia episodes 3. Chronic venous stasis dermatitis patient has been seen at the wound care center 4. Diabetes mellitus type II: Uncontrolled with episodes of hypoglycemia; patient's oral hypoglycemics held. Placed on long acting insulin, Accu-Cheks a.c. and at bedtime and covered with sliding scale insulin 5. Closed head injury following patient's syncopal episode CT of the head ordered to rule out intracranial injury 6. Hypertension-blood pressure controlled, home medications continued with dose adjustment as needed 7. BPH patient is on Flomax 8. Morbid obesity with BMI of 39.3 9. DVT prophylaxis SC heparin Code Visit Inpatient E&M: 02332 Subs Hosp L3
--- NOTE | 2018-12-21 13:20 | RAD_ITS ---
STUDY: X-RAY - UNILATERAL RIBS ( LEFT ) REASON FOR EXAM: Male, 78 years old. Syncopal episode. TECHNIQUE: 4 view(s) of the ribs. COMPARISON: None. FINDINGS: There is severe demineralization of the osseous structures which diminishes the diagnostic sensitivity of this examination, however there is no visualized rib fracture. Increased markings at the left lung base suggestive of left basilar atelectasis and blunting of the left costophrenic angle. RAD/Ribs Unil 2V No CXR IMPRESSION: No fractures seen. Impaired aeration of the left lung base with blunted left costophrenic angle. Electronically Signed: Yoan Moreau, at 13:48 EDT , Service support ,
--- NOTE | 2018-12-21 14:07 | ED.RN ---
called report to Silvia in ICU
--- NOTE | 2018-12-21 14:35 | ECHOD_ITS ---
Reason For Study: Syncope Procedure This was a 2D Doppler, Color Flow transthoracic echocardiogram. Technically difficult study. Patient was wearing a wireless heart monitor in parasternal window, and was unable to tolerate probe in apical window due to a recent fall and sore ribs. The study was technically difficult. Exam performed portable in ICU/CCU. Left Ventricle Mild concentric left ventricular hypertrophy. Based upon the 2D echocardiographic images obtained there appears to be dilated left ventricle with global left ventricular systolic dysfunction. The estimated ejection fraction is 30 %. Right Ventricle Based upon the 2D echocardiographic images obtained there appears to be a dilated right ventricle with global right ventricular dysfunction. Atria The left atrium is moderately enlarged. The right atrium is mildly enlarged. No doppler evidence for ASD. Mitral Valve There is no mitral annular calcification. Normal mitral valve. Mild (1+) eccentric mitral valve insufficiency. Tricuspid Valve Normal tricuspid valve. Trivial tricuspid valve insufficiency. Right ventricular systolic pressure estimated to be 70 mmHg. Aortic Valve Trisinus/trileaflet aortic valve. Mild diffuse aortic valve thickening. Mild diffuse aortic valve calcification. Pulmonic Valve The pulmonic valve is not well visualized. Trivial pulmonic valve insufficiency. Great Vessels Normal sized aortic root. Pericardium/Pleural No pericardial effusion. MMode/2D Measurements & Calculations LVIDd: 6.4 cm IVSd: 1.3 cm Ao root diam: 3.6 cm LVIDs: 5.3 cm LVPWd: 1.4 cm LA dimension: 5.8 cm FS: 16.7 % LAV(MOD-bp): 104.6 ml LA A4 area: 29.5 cm2 LAV(MOD-bp) Indexed: 45.4 ml/m2 LAV(MOD-sp2): 103.4 ml LAV(MOD-sp4): 104.3 ml Time Measurements MV dec time: 0.17 sec Doppler Measurements & Calculations MV E max gilberto: 84.3 cm/sec Lat Peak E' Gilberto: 9.4 cm/sec Med Peak E' Gilberto: 4.7 cm/sec MV A max gilberto: 26.7 cm/sec E/E' lat: 9.0 E/E' med: 17.9 MV E/A: 3.2 Ao V2 max: 116.8 cm/sec LV V1 max: 76.5 cm/sec MR max gilberto: 430.3 cm/sec Ao max P.5 mmHg LV V1 max P.4 mmHg MR max P.1 mmHg MR mean gilberto: 324.3 cm/sec MR mean P.1 mmHg MR VTI: 114.9 cm TR max gilberto: 407.1 cm/sec TR max P.5 mmHg Interpretation Summary The study was technically difficult. Based upon the 2D echocardiographic images obtained there appears to be dilated left ventricle with global left ventricular systolic dysfunction. The estimated ejection fraction is 30 %. Mild concentric left ventricular hypertrophy. Based upon the 2D echocardiographic images obtained there appears to be a dilated right ventricle with global right ventricular dysfunction. The left atrium is moderately enlarged. The right atrium is mildly enlarged. Mild (1+) eccentric mitral valve insufficiency. Trivial tricuspid valve insufficiency. Mild diffuse aortic valve thickening. Mild diffuse aortic valve calcification. Trivial pulmonic valve insufficiency. Right ventricular systolic pressure estimated to be 70 mmHg c/w pulmonary hypertension. Transmitral diastolic flow velocities suggest diastolic dysfunction (pseudonormal pattern). Ordering Physician: Timbo Perez Performed By: Yannick Miranda RCS
[2018-12-21 15:29] LABS: Magnesium 2.1 mg/dL (1.6-2.6)
--- NOTE | 2018-12-21 15:56 | CON.PCM_ITS ---
Problem List (1) Syncope and collapse Status: Acute (2) Sinus pause Status: Acute (3) Atrial fibrillation Status: Chronic Qualifiers: Atrial fibrillation type: persistent Qualified Code(s): I48.1 - Persistent atrial fibrillation (4) Ventricular tachycardia Status: Chronic (5) Congestive heart failure Status: Chronic Qualifiers: Heart failure type: systolic Heart failure chronicity: chronic Qualified Code(s): I50.22 - Chronic systolic (congestive) heart failure (6) Lymphedema Status: Chronic Reason for Consult Date of Consultation: 12/21/18 History of Present Illness: The patient is a 78 year old white male past cardiovascular history which has included atrial fibrillation, ventricular tachycardia, non-CAD related cardiomyopathy, chronic systolic CHF, chronic lymphedema, who now presents for evaluation of syncope and subsequent findings of sinus pauses (greater than 6 seconds in duration). The patient was previously evaluated at [facility] in February 2018 by Leobardo Garcia MD. At that time he was being evaluated for concerns of nonsustained ventricular tachycardia. He was subsequently transferred to [facility] for consideration for EP consultation and possible ICD placement. The patient states he was evaluated and subsequently released home on medical management. He states he has been following with Johan Schafer MD for his outpatient cardiovascular care. He states there is still ongoing discussions about possible ICD placement, however, he states that was placed on hold secondary to concerns of his lower extremities. In the meantime the patient has denied ongoing chest discomfort. He states he does have chronic shortness of breath and dyspnea. He notes that he can barely walk across the hallway without becoming dyspneic. He also cannot sleep in a supine position without experiencing orthopnea. He has had continued evidence of marked lower extremity peripheral pitting edema/lymphedema. He denies any previous near syncopal or syncopal events. He states he did not wear the LifeVest. However he does have an ambulatory monitor in place. He notes that Dr. Schafer received the information from his ambulatory monitor. He states today while at the wound center he had an episode where he felt a flores in my head and subsequently lost consciousness. He struck his head and does have an abrasion on his head. He also believes he struck his chest and is now sore in the left chest area. He was brought via EMS to the emergency department. While in transit by the EMS he had another near syncopal spell. At that time according to the EMS rhythm strip he had been noted to be in what appeared to be atrial fibrillation with an underlying bundle branch block pattern with a subsequent prolonged pause of greater than 6 seconds in duration. He was evaluated in the emergency department. They are, according to the emergency department staff, he had another near syncopal episode with a pause that was somewhat shorter than his previous pause. He was subsequent recommended for admission to the ICU for further evaluation and care. Since being in the ICU he states he has been resting comfortably. He notes that he has had a sore in his left rib cage is sore. He has had no other acute events. He does state that he received a call from Dr. Schafer today after his initial event stating that he did receive information from his ambulatory monitoring company that something did occur with his heart rate and heart rhythm. He states he inform Dr. Schafer that he was now in the hospital undergoing further evaluation and care. Based upon previous medical records obtained from [facility] it appears that the patient was evaluated in February 2018. Based upon information at that time it states that he had previously undergone evaluation approximately 2 years prior at [facility] with diagnostic cardiac catheterization which at that time revealed no obstructive CAD and an LVEF of 40-45%. There were comments that he was being considered for ICD placement but there were concerns about his lower extremities and any type of infectious related issues at the time. It does appear that he underwent a transthoracic echocardiogram at [facility] in February 2018. According to the report he was noted to have a dilated left ventricle with severe left ventricular systolic dysfunction. His LVEF was reported at 25%. Also additional information has been received from Dr. Schafer's office. This included the patient's ambulatory event monitor rhythm strips from earlier this day. Based upon the information of the. He had an underlying atrial fibrillation/flutter rhythm with an underlying IVCD with subsequent pauses lasting 14 seconds in duration. This was reported as occurring with his event earlier this day. Additional rhythm strips show what appears to be underlying atrial fibrillation and/or atrial fibrillation/flutter with an underlying IVCD also with episodes of nonsustained wide-complex tachycardia being reported as compatible with nonsustained ventricular tachycardia. [] Past Medical History Allergies/Adverse Reactions: Allergies tolterodine [From Detrol] Allergy (Verified 12/21/18 15:10) Unknown Home Medications: Ambulatory Orders Medication Instructions Recorded Furosemide [Lasix] 40 mg PO BID 01/17/18 Polyethylene Glycol 3350 [Miralax] 17 gm PO DAILY 01/17/18 Potassium Chloride [K-Dur] 20 meq PO BID 01/17/18 Tamsulosin HCl [Flomax] 0.4 mg PO QHS 01/17/18 Apixaban [Eliquis] 5 mg PO BID 12/21/18 Atorvastatin Calcium [Lipitor] 40 mg PO QHS 12/21/18 Clotrimazole/Betamethasone 1 applic TOPICAL DAILY PRN 12/21/18 [Lotrisone] Lisinopril [Zestril] 2.5 mg PO DAILY 12/21/18 Metformin HCl [Glucophage] 500 mg PO BIDCM 12/21/18 Spironolactone [Aldactone] 25 mg PO DAILY 12/21/18 Terbinafine HCl 250 mg PO DAILY 12/21/18 glipiZIDE [Glucotrol] 5 mg PO BIDAC 12/21/18 Past Medical History (Chronic Problems): Chronic Problems Swelling of both lower extremities (Chronic) BPH (benign prostatic hyperplasia) (Chronic) Inguinal hernia (Chronic) Oxygen dependent (Chronic) Physical deconditioning (Chronic) Venous stasis dermatitis (Chronic) Hypertension (Chronic) Paroxysmal A-fib (Chronic) Atrial fibrillation (Chronic) Ventricular tachycardia (Chronic) Delayed wound healing (Chronic) Malnutrition (Chronic) Congestive heart failure (Chronic) Diabetes mellitus with neuropathy (Chronic) 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 (Chronic) Chronic ulcer of right leg with fat layer exposed (Chronic) Venous insufficiency (Chronic) Lymphedema (Chronic) Edema, lower extremity (Chronic) Venous insufficiency (Chronic) Surgical History: - - The patient has undergone removal of a plantars wart on his right foot in the remote past. Is undergone right inguinal hernia repair. He also underwent tonsillectomy in the past. - *Family History Paternal History Items: - - The patient's father at age of 60 from a shotgun wound. The patient's mother at age of 93 with a history of diabetes mellitus. Lives: Spouse/ Significant Other Smoking Status: Former smoker Alcohol: None Drugs: None Review of Systems - Review of Systems General: Reports: Fatigue. Denies: Fever, Night Sweats Cardiovascular: Reports: Shortness of Breath, Orthopnea, Peripheral Edema, Near Syncope, Syncope. Denies: Chest Discomfort, PND, Palpitations, Lightheadedness, Dizziness Respiratory: Reports: Shortness of Breath. Denies: Cough, Sputum Production, Hemoptysis Gastrointestinal: Denies: Hematemesis, Hematochezia, Melena Genitourinary: Denies: Dysuria, Hematuria Skin: Denies: Rash Subjectve: Is a 78-year-old white male who appears to be resting comfortably at the moment in no acute distress. Objective: Vital Signs Temp Pulse Resp BP Pulse Ox 97.4 F L 76 20 H 132/74 H 100 12/21/18 10:30 12/21/18 14:11 12/21/18 14:11 12/21/18 14:11 12/21/18 12:41 Oxygen Flow Rate (L/min) 2 Oxygen Delivery Method Nasal Cannula Weight: 234 lb 11.2 oz Body Mass Index (BMI) 36.7 General: Awake, Alert, Oriented x 3, Cooperative, No Acute Distress HEENT: Normocephalic, PERRL, EOMI, Sclera Non Icteric, - - Left forehead abrasion Oral: Moist Mucosa, Poor Dentition Neck: Supple, Good ROM, No JVD Lungs: Diminished Nayan Bases Cardiovascular: Irregular Rhythm, Normal S1, Normal S2 Vascular: No Carotid Bruits Abdomen: Bowel Sounds Present, Soft, Non Tender Extremities: Severe RLE Edema, Severe LLE Edema Psych/Mental Status: Appropriate 12/21/18 10:40: WBC 8.5, RBC 4.57 L, Hgb 14.3, Hct 44.5, MCV 97.4 H, MCH 31.3, MCHC 32.1, RDW 13.7, RDW Differential 48.6 H, Plt Count 183, MPV 11.3, Immature Gran % (Auto) 0.100, Neut % (Auto) 72.8 H, Lymph % (Auto) 14.4 L, [place] % (Auto) 11.2 H, Eos % (Auto) 1.4, Baso % (Auto) 0.1, Absolute Neuts (auto) 6.2, Total Counted Not Reportable 12/21/18 10:40: PT 16.8 H, INR 1.4 12/21/18 10:40: Sodium 136, Potassium 4.4, Chloride 99, Carbon Dioxide 34.0 H, Anion Gap 3 L, BUN 35 H, Creatinine 1.26, Est GFR (MDRD) Af Amer 72, Est GFR (MDRD) Non-Af 59 L, BUN/Creatinine Ratio 27.8 H, Glucose 228 H, Calcium 9.3, Magnesium 2.0, Troponin I < 0.015 12/21/18 14:45: Magnesium 2.1, Troponin I 0.031 Rhythm: Atrial fibrillation EKG: Atrial fibrillation; left axis deviation; bundle branch block pattern; anterior KS of indeterminate age cannot be excluded; Inferior KS of indeterminate age cannot be excluded ECHO: As noted above CXR: Portable chest x-ray: Diminished inspiratory effort: Possible increased pulmonary vascularity: Final report pending Assessment/Plan 1. Syncope The patient has had a syncopal event and repetitive near syncopal events. They appear to be correlating with his underlying cardiac dysrhythmia with prolonged pauses as documented by his ambulatory event monitor and the EMS recordings. At the present time the patient is being monitored. He is without any rate limiting medications. Based upon his cardiovascular history/previous findings/consideration for ICD placement, it would not be unreasonable to have the patient referred back to a tertiary care center for consideration of ICD placement which would assist with his pauses as well as his underlying primary prevention for ventricular dysrhythmias. 2. Sinus pauses The patient has had prolonged pauses today as previously documented. They appear to correlate with his events. At the moment he is being monitored. He is without rate limiting medications. Again based upon his previous extensive evaluation and already recommendations for consideration for an ICD placement it would be reasonable to have the patient transferred back to [facility] or a similar type tertiary care center for further electrophysiology evaluation and care. 3. Atrial fibrillation The patient does have atrial fibrillation. He states he has been on anticoagulant therapy with apixaban/Eliquis. He believes he has been taking this for approximately 4 months now. 4. Nonsustained ventricular tachycardia The patient has had a history of nonsustained ventricular tachycardia for which she has been evaluated locally as well as at a tertiary care center. 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 He states he has been recommended for ICD placement but it is been on hold based upon concerns of his lower extremities. However, based on his recent events and findings with respect to his positive superimposed upon his previous ventricular dysrhythmias would be reasonable to have the patient referred back to a tertiary care center for reevaluation by electrophysiology. 5. Non-CAD related cardiomyopathy The patient apparently has a non-CAD related cardia myopathy with a markedly diminished LV systolic function based on his previous studies. He has been treated medically as an outpatient. 6. Chronic systolic CHF The patient describes symptoms would be compatible with his cardiomyopathy and chronic systolic mediated CHF. He will need to continue medical management. 7. Lymphedema The patient does have underlying lymphedema. This appears to be chronic. There has been concerns as to whether or not this was prohibitive for placement of a device such as an ICD. Over the present time based upon the patient's events and recent dysrhythmia/conduction system abnormality superimposed upon his previous cardiovascular disease process and dysrhythmias he may need to be reassessed for placement of an ICD firing and active acute infectious disease process that would limit electrophysiology from doing so. Overall, from a cardiovascular standpoint, the patient will continue to be monitored. Rate limiting medications are being held at the moment. His anticoagulants can be held in preparation for possible invasive procedure such as an ICD placement. He can be treated medically for his other cardiovascular conditions. However he should be considered for transfer back to a tertiary care center for further elective physiology evaluation and care. The above was discussed and reviewed with the patient. The above information was also communicated to Dr. Perez of the [facility] hospitalist service. CC: Johan Schafer MD
[2018-12-21 16:31] LABS: Bedside Glucose 185 mg/dL (70-110)
--- NOTE | 2018-12-21 17:45 | PCM.DC.SUM ---
<Monico Hutton - Last Filed: 12/21/18 17:48> Discharge Date and Diagnosis Date of Admission: 12/21/18 Date of Discharge: 12/21/18 - Primary Discharge Diagnosis Active and Suspected Problems Syncope and collapse 2/2 sinus pause, high degree AV block, non sustained vtach high degree AV block (Acute) pAfib/flutter non-CAD cardiomyopathy chronic systolic CHF Pulmonary HTN chronic hypoxic resp failure DMt2 Lymphedema BPH HTN Obesity - Secondary Discharge Diagnosis Chronic Problems Swelling of both lower extremities (Chronic) BPH (benign prostatic hyperplasia) (Chronic) Inguinal hernia (Chronic) Oxygen dependent (Chronic) Physical deconditioning (Chronic) Venous stasis dermatitis (Chronic) Hypertension (Chronic) Paroxysmal A-fib (Chronic) Atrial fibrillation (Chronic) Ventricular tachycardia (Chronic) Delayed wound healing (Chronic) Malnutrition (Chronic) Congestive heart failure (Chronic) Diabetes mellitus with neuropathy (Chronic) 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 (Chronic) Chronic ulcer of right leg with fat layer exposed (Chronic) Venous insufficiency (Chronic) Lymphedema (Chronic) Edema, lower extremity (Chronic) Venous insufficiency (Chronic) Hospital Course and Treatment Imaging Results: Imaging:: RAD/Chest 1 View (Portable) IMPRESSION: Poor inspiratory effort with bibasilar atelectasis. Prominence of the pulmonary arteries worse on the left side. CT/Brain/Head without Contrast IMPRESSION: Chronic involutional changes of the brain. Tiny lacuna in the right basal ganglia. RAD/Ribs Unil 2V No CXR IMPRESSION: No fractures seen. Impaired aeration of the left lung base with blunted left costophrenic angle. Echo: Interpretation Summary The study was technically difficult. Based upon the 2D echocardiographic images obtained there appears to be dilated left ventricle with global left ventricular systolic dysfunction. The estimated ejection fraction is 30 %. Mild concentric left ventricular hypertrophy. Based upon the 2D echocardiographic images obtained there appears to be a dilated right ventricle with global right ventricular dysfunction. The left atrium is moderately enlarged. The right atrium is mildly enlarged. Mild (1+) eccentric mitral valve insufficiency. Trivial tricuspid valve insufficiency. Mild diffuse aortic valve thickening. Mild diffuse aortic valve calcification. Trivial pulmonic valve insufficiency. Right ventricular systolic pressure estimated to be 70 mmHg c/w pulmonary hypertension. Transmitral diastolic flow velocities suggest diastolic dysfunction (pseudonormal pattern). Consultations Cardiology - Dr. Smith 12/21/18 14:42 Consult: Onc/Wound/research leader Routine Comment: Reason for Consult:: bilat lower leg lymphedema , bilateral wounds Comments:: was to restart treatment @ wound center today Operations: None Procedures: 2-D Echocardiogram Summary of Care Provided: Hospital Course: The patient is a 78 year old M with pmhx of pAfib, non-CAD related CM, chronic systolic CHF, chronic hypoxic respiratory failure, DMt2, lymphedema, who presents to the ED after experiencing a syncopal episode today. He has been evaluated in the past by EP at [facility], and at that time AICD placement was deferred. He has been having near syncopal episodes at home culminating in full syncope today. He came to the ER. After coming to the ED he was called by his golf club manager Dr. Schafer to inform him that his event monitor was showing abnormalities. He had a pause in the squad on the way in. He was admitted to the ICU. He continued to have sinus pauses here. He also had background rhythm of afib/flutter. He also had episodes of nonsustained vtach. He was seen by cardiology. An echo was obtained with results as above, notably EF30%, dilated left and right ventricles, RVSP of 70mmHg c/w pulmonary htn. Cardiology felt that the patient would need sent to a tertiary center for further workup per electrophysiology and for AICD placement. The patient was agreeable. He was discharged to [facility] in stable condition into the care of Dr. Ko, to the ICU. This patient was seen by Monico Hutton PA-C under the supervision of Dr. Perez. [] - Physical Exam General: Alert, Oriented x3, Cooperative HEENT: Atraumatic, PERRLA, EOMI, Normocephalic Neck: Supple, No JVD, Negative Carotid Bruits Lungs: Clear to auscultation, Normal air movement Cardiovascular: No murmurs, Irregular Rate Abdomen: Bowel Sounds Present, Soft, Non Tender Extremities: Capillary Refill Less than 3 Seconds, Edema - 2-3+ pitting edema BL LE, changes c/w chronic lymphedema Skin: No rashes, No breakdown Musculoskeletal: No Tenderness to Palpation of Joints or Extremities Neurological: Cranial nerves II-XII grossly intact Psych/Mental Status: Normal Affect, Appropriate, Alert and oriented to time, place, person, mood and affect Vital Signs Temp Pulse Resp BP Pulse Ox 97.5 F L 86 18 139/81 H 98 12/21/18 14:11 12/21/18 16:00 12/21/18 16:00 12/21/18 14:56 12/21/18 16:00 Oxygen Flow Rate (L/min) 4 Oxygen Delivery Method Nasal Cannula Weight: 234 lb 11.2 oz Body Mass Index (BMI) 36.7 Laboratory Tests Past 24 Hrs 12/21/18 12/21/18 12/21/18 10:40 10:40 10:40 WBC 8.5 RBC 4.57 L Hgb 14.3 Hct 44.5 MCV 97.4 H MCH 31.3 MCHC 32.1 RDW 13.7 RDW Differential 48.6 H Plt Count 183 MPV 11.3 Immature Gran % (Auto) 0.100 Neut % (Auto) 72.8 H Lymph % (Auto) 14.4 L [place] % (Auto) 11.2 H Eos % (Auto) 1.4 Baso % (Auto) 0.1 Absolute Neuts (auto) 6.2 Absolute Lymphs (auto) 1.22 Total Counted Not Reportable PT 16.8 H INR 1.4 Sodium 136 Potassium 4.4 Chloride 99 Carbon Dioxide 34.0 H Anion Gap 3 L BUN 35 H Creatinine 1.26 Estim Creat Clear Calc 46.63 Est GFR (MDRD) Af Amer 72 Est GFR (MDRD) Non-Af 59 L BUN/Creatinine Ratio 27.8 H Glucose 228 H Calcium 9.3 Magnesium 2.0 Troponin I < 0.015 TSH 12/21/18 14:45 WBC RBC Hgb Hct MCV MCH MCHC RDW RDW Differential Plt Count MPV Immature Gran % (Auto) Neut % (Auto) Lymph % (Auto) [place] % (Auto) Eos % (Auto) Baso % (Auto) Absolute Neuts (auto) Absolute Lymphs (auto) Total Counted PT INR Sodium Potassium Chloride Carbon Dioxide Anion Gap BUN Creatinine Estim Creat Clear Calc Est GFR (MDRD) Af Amer Est GFR (MDRD) Non-Af BUN/Creatinine Ratio Glucose Calcium Magnesium 2.1 Troponin I 0.031 TSH 1.80 POC Glucose 12/21/18 16:19 POC Glucose 185 H Discharge Diet: - - as directed by receiving facility Discharge Activity: - - as directed by receiving facility Home Medications: Medications to take at Discharge Furosemide [Lasix] 40 mg PO BID 01/17/18 Polyethylene Glycol 3350 [Miralax] 17 gm PO DAILY 01/17/18 Potassium Chloride [K-Dur] 20 meq PO BID 01/17/18 Tamsulosin HCl [Flomax] 0.4 mg PO QHS 01/17/18 Apixaban [Eliquis] 5 mg PO BID 12/21/18 Atorvastatin Calcium [Lipitor] 40 mg PO QHS 12/21/18 Clotrimazole/Betamethasone [Lotrisone] 1 applic TOPICAL DAILY PRN 12/21/18 Lisinopril [Zestril] 2.5 mg PO DAILY 12/21/18 Metformin HCl [Glucophage] 500 mg PO BIDCM 12/21/18 Spironolactone [Aldactone] 25 mg PO DAILY 12/21/18 Terbinafine HCl 250 mg PO DAILY 12/21/18 glipiZIDE [Glucotrol] 5 mg PO BIDAC 12/21/18 Primary Care Physician: Mallorie Hameed,Out of [Primary Care Provider] - Please follow up with your Primary Care Physician in: As directed Disposition: Acute care Hospital Minutes spent on discharge:: 35 Patient Condition:: Stable Medical Necessity - Tobacco Use Smoking Status: Former smoker Meaningful Use Info Meaningful Use Diagnoses (Choose all that apply): None applicable <Timbo Perez - Last Filed: 12/22/18 07:31> Discharge Date and Diagnosis - Secondary Discharge Diagnosis Chronic Problems Swelling of both lower extremities (Chronic) BPH (benign prostatic hyperplasia) (Chronic) Inguinal hernia (Chronic) Oxygen dependent (Chronic) Physical deconditioning (Chronic) Venous stasis dermatitis (Chronic) Hypertension (Chronic) Paroxysmal A-fib (Chronic) Atrial fibrillation (Chronic) Ventricular tachycardia (Chronic) Delayed wound healing (Chronic) Malnutrition (Chronic) Congestive heart failure (Chronic) Diabetes mellitus with neuropathy (Chronic) 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 (Chronic) Chronic ulcer of right leg with fat layer exposed (Chronic) Venous insufficiency (Chronic) Lymphedema (Chronic) Edema, lower extremity (Chronic) Venous insufficiency (Chronic) Hospital Course and Treatment Consultations 12/21/18 14:42 Consult: Onc/Wound/research leader Routine Comment: Reason for Consult:: bilat lower leg lymphedema , bilateral wounds Comments:: was to restart treatment @ wound center today Summary of Care Provided: This patient was seen in conjunction with Monico Hutton PA-C . I have independently interviewed and examined the patient and reviewed pertinent historical, laboratory, and other data. Please refer to Monico Hutton PA-C note for details of this patient's presentation, findings, and recommendations. I have reviewed Monico Hutton PA-C note and concur with documented findings. Patient is a 78-year-old gentleman presented with a syncopal episode telemetry monitoring in the emergency department demonstrated significant sinus pauses. Runs of nonsustained VT with dilated cardiomyopathy with ejection fraction of 30% and RVSP of 70 mmHg. Consultation was placed to cardiology patient seen by Dr. Smith who recommended for patient to be transferred to [facility] to be evaluated by medical records administrator Hospital course as documented above by Monico Hutton - Physical Exam Vital Signs Temp Pulse Resp BP Pulse Ox 96.9 F L 84 16 93/72 100 12/21/18 20:00 12/21/18 20:00 12/21/18 20:00 12/21/18 20:00 12/21/18 20:00 Oxygen Flow Rate (L/min) 5 Oxygen Delivery Method Nasal Cannula Weight: 106.458 kg Body Mass Index (BMI) 36.7 Intake and Output for Last 24 Hours 12/20/18 12/21/18 12/22/18 23:59 23:59 23:59 Intake Total 250 / 250 Output Total 325 / 325 Balance -75 / -75 Laboratory Tests Past 24 Hrs 12/21/18 12/21/18 12/21/18 10:40 10:40 10:40 WBC 8.5 RBC 4.57 L Hgb 14.3 Hct 44.5 MCV 97.4 H MCH 31.3 MCHC 32.1 RDW 13.7 RDW Differential 48.6 H Plt Count 183 MPV 11.3 Immature Gran % (Auto) 0.100 Neut % (Auto) 72.8 H Lymph % (Auto) 14.4 L [place] % (Auto) 11.2 H Eos % (Auto) 1.4 Baso % (Auto) 0.1 Absolute Neuts (auto) 6.2 Absolute Lymphs (auto) 1.22 Total Counted Not Reportable PT 16.8 H INR 1.4 Sodium 136 Potassium 4.4 Chloride 99 Carbon Dioxide 34.0 H Anion Gap 3 L BUN 35 H Creatinine 1.26 Estim Creat Clear Calc 46.63 Est GFR (MDRD) Af Amer 72 Est GFR (MDRD) Non-Af 59 L BUN/Creatinine Ratio 27.8 H Glucose 228 H Calcium 9.3 Magnesium 2.0 Troponin I < 0.015 TSH 12/21/18 12/21/18 14:45 17:55 WBC RBC Hgb Hct MCV MCH MCHC RDW RDW Differential Plt Count MPV Immature Gran % (Auto) Neut % (Auto) Lymph % (Auto) [place] % (Auto) Eos % (Auto) Baso % (Auto) Absolute Neuts (auto) Absolute Lymphs (auto) Total Counted PT INR Sodium Potassium Chloride Carbon Dioxide Anion Gap BUN Creatinine Estim Creat Clear Calc Est GFR (MDRD) Af Amer Est GFR (MDRD) Non-Af BUN/Creatinine Ratio Glucose Calcium Magnesium 2.1 Troponin I 0.031 0.034 TSH 1.80 POC Glucose 12/21/18 16:19 POC Glucose 185 H Code Visit OBSV E&M: [id number] Observ/hosp same date L3
--- NOTE | 2018-12-21 17:48 | DS.PCM_ITS ---
<Monico Hutton - Last Filed: 12/21/18 17:48> Discharge Date and Diagnosis Date of Admission: 12/21/18 Date of Discharge: 12/21/18 - Primary Discharge Diagnosis Active and Suspected Problems Syncope and collapse 2/2 sinus pause, high degree AV block, non sustained vtach high degree AV block (Acute) pAfib/flutter non-CAD cardiomyopathy chronic systolic CHF Pulmonary HTN chronic hypoxic resp failure DMt2 Lymphedema BPH HTN Obesity - Secondary Discharge Diagnosis Chronic Problems Swelling of both lower extremities (Chronic) BPH (benign prostatic hyperplasia) (Chronic) Inguinal hernia (Chronic) Oxygen dependent (Chronic) Physical deconditioning (Chronic) Venous stasis dermatitis (Chronic) Hypertension (Chronic) Paroxysmal A-fib (Chronic) Atrial fibrillation (Chronic) Ventricular tachycardia (Chronic) Delayed wound healing (Chronic) Malnutrition (Chronic) Congestive heart failure (Chronic) Diabetes mellitus with neuropathy (Chronic) 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 (Chronic) Chronic ulcer of right leg with fat layer exposed (Chronic) Venous insufficiency (Chronic) Lymphedema (Chronic) Edema, lower extremity (Chronic) Venous insufficiency (Chronic) Hospital Course and Treatment Imaging Results: Imaging:: RAD/Chest 1 View (Portable) IMPRESSION: Poor inspiratory effort with bibasilar atelectasis. Prominence of the pulmonary arteries worse on the left side. CT/Brain/Head without Contrast IMPRESSION: Chronic involutional changes of the brain. Tiny lacuna in the right basal ganglia. RAD/Ribs Unil 2V No CXR IMPRESSION: No fractures seen. Impaired aeration of the left lung base with blunted left costophrenic angle. Echo: Interpretation Summary The study was technically difficult. Based upon the 2D echocardiographic images obtained there appears to be dilated left ventricle with global left ventricular systolic dysfunction. The estimated ejection fraction is 30 %. Mild concentric left ventricular hypertrophy. Based upon the 2D echocardiographic images obtained there appears to be a dilated right ventricle with global right ventricular dysfunction. The left atrium is moderately enlarged. The right atrium is mildly enlarged. Mild (1+) eccentric mitral valve insufficiency. Trivial tricuspid valve insufficiency. Mild diffuse aortic valve thickening. Mild diffuse aortic valve calcification. Trivial pulmonic valve insufficiency. Right ventricular systolic pressure estimated to be 70 mmHg c/w pulmonary hypertension. Transmitral diastolic flow velocities suggest diastolic dysfunction (pseudonormal pattern). Consultations Cardiology - Dr. Smith 12/21/18 14:42 Consult: Onc/Wound/automatic hemmer Routine Comment: Reason for Consult:: bilat lower leg lymphedema , bilateral wounds Comments:: was to restart treatment @ wound center today Operations: None Procedures: 2-D Echocardiogram Summary of Care Provided: Hospital Course: The patient is a 78 year old M with pmhx of pAfib, non-CAD related CM, chronic systolic CHF, chronic hypoxic respiratory failure, DMt2, lymphedema, who presents to the ED after experiencing a syncopal episode today. He has been evaluated in the past by EP at [facility], and at that time AICD placement was deferred. He has been having near syncopal episodes at home culminating in full syncope today. He came to the ER. After coming to the ED he was called by his grain commodity manager Dr. Schafer to inform him that his event monitor was showing abnormalities. He had a pause in the squad on the way in. He was admitted to the ICU. He continued to have sinus pauses here. He also had background rhythm of afib/flutter. He also had episodes of nonsustained vtach. He was seen by cardiology. An echo was obtained with results as above, notably EF30%, dilated left and right ventricles, RVSP of 70mmHg c/w pulmonary htn. Cardiology felt that the patient would need sent to a tertiary center for further workup per electrophysiology and for AICD placement. The patient was agreeable. He was discharged to [facility] in stable condition into the care of Dr. Ko, to the ICU. This patient was seen by Monico Hutton PA-C under the supervision of Dr. Perez. [] - Physical Exam General: Alert, Oriented x3, Cooperative HEENT: Atraumatic, PERRLA, EOMI, Normocephalic Neck: Supple, No JVD, Negative Carotid Bruits Lungs: Clear to auscultation, Normal air movement Cardiovascular: No murmurs, Irregular Rate Abdomen: Bowel Sounds Present, Soft, Non Tender Extremities: Capillary Refill Less than 3 Seconds, Edema - 2-3+ pitting edema BL LE, changes c/w chronic lymphedema Skin: No rashes, No breakdown Musculoskeletal: No Tenderness to Palpation of Joints or Extremities Neurological: Cranial nerves II-XII grossly intact Psych/Mental Status: Normal Affect, Appropriate, Alert and oriented to time, place, person, mood and affect Vital Signs Temp Pulse Resp BP Pulse Ox 97.5 F L 86 18 139/81 H 98 12/21/18 14:11 12/21/18 16:00 12/21/18 16:00 12/21/18 14:56 12/21/18 16:00 Oxygen Flow Rate (L/min) 4 Oxygen Delivery Method Nasal Cannula Weight: 234 lb 11.2 oz Body Mass Index (BMI) 36.7 Laboratory Tests Past 24 Hrs 12/21/18 12/21/18 12/21/18 10:40 10:40 10:40 WBC 8.5 RBC 4.57 L Hgb 14.3 Hct 44.5 MCV 97.4 H MCH 31.3 MCHC 32.1 RDW 13.7 RDW Differential 48.6 H Plt Count 183 MPV 11.3 Immature Gran % (Auto) 0.100 Neut % (Auto) 72.8 H Lymph % (Auto) 14.4 L [place] % (Auto) 11.2 H Eos % (Auto) 1.4 Baso % (Auto) 0.1 Absolute Neuts (auto) 6.2 Absolute Lymphs (auto) 1.22 Total Counted Not Reportable PT 16.8 H INR 1.4 Sodium 136 Potassium 4.4 Chloride 99 Carbon Dioxide 34.0 H Anion Gap 3 L BUN 35 H Creatinine 1.26 Estim Creat Clear Calc 46.63 Est GFR (MDRD) Af Amer 72 Est GFR (MDRD) Non-Af 59 L BUN/Creatinine Ratio 27.8 H Glucose 228 H Calcium 9.3 Magnesium 2.0 Troponin I < 0.015 TSH 12/21/18 14:45 WBC RBC Hgb Hct MCV MCH MCHC RDW RDW Differential Plt Count MPV Immature Gran % (Auto) Neut % (Auto) Lymph % (Auto) [place] % (Auto) Eos % (Auto) Baso % (Auto) Absolute Neuts (auto) Absolute Lymphs (auto) Total Counted PT INR Sodium Potassium Chloride Carbon Dioxide Anion Gap BUN Creatinine Estim Creat Clear Calc Est GFR (MDRD) Af Amer Est GFR (MDRD) Non-Af BUN/Creatinine Ratio Glucose Calcium Magnesium 2.1 Troponin I 0.031 TSH 1.80 POC Glucose 12/21/18 16:19 POC Glucose 185 H Discharge Diet: - - as directed by receiving facility Discharge Activity: - - as directed by receiving facility Home Medications: Medications to take at Discharge Furosemide [Lasix] 40 mg PO BID 01/17/18 Polyethylene Glycol 3350 [Miralax] 17 gm PO DAILY 01/17/18 Potassium Chloride [K-Dur] 20 meq PO BID 01/17/18 Tamsulosin HCl [Flomax] 0.4 mg PO QHS 01/17/18 Apixaban [Eliquis] 5 mg PO BID 12/21/18 Atorvastatin Calcium [Lipitor] 40 mg PO QHS 12/21/18 Clotrimazole/Betamethasone [Lotrisone] 1 applic TOPICAL DAILY PRN 12/21/18 Lisinopril [Zestril] 2.5 mg PO DAILY 12/21/18 Metformin HCl [Glucophage] 500 mg PO BIDCM 12/21/18 Spironolactone [Aldactone] 25 mg PO DAILY 12/21/18 Terbinafine HCl 250 mg PO DAILY 12/21/18 glipiZIDE [Glucotrol] 5 mg PO BIDAC 12/21/18 Primary Care Physician: Mallorie Hameed,Out of [Primary Care Provider] - Please follow up with your Primary Care Physician in: As directed Disposition: Acute care Hospital Minutes spent on discharge:: 35 Patient Condition:: Stable Medical Necessity - Tobacco Use Smoking Status: Former smoker Meaningful Use Info Meaningful Use Diagnoses (Choose all that apply): None applicable <Timbo Perez - Last Filed: 12/22/18 07:31> Discharge Date and Diagnosis - Secondary Discharge Diagnosis Chronic Problems Swelling of both lower extremities (Chronic) BPH (benign prostatic hyperplasia) (Chronic) Inguinal hernia (Chronic) Oxygen dependent (Chronic) Physical deconditioning (Chronic) Venous stasis dermatitis (Chronic) Hypertension (Chronic) Paroxysmal A-fib (Chronic) Atrial fibrillation (Chronic) Ventricular tachycardia (Chronic) Delayed wound healing (Chronic) Malnutrition (Chronic) Congestive heart failure (Chronic) Diabetes mellitus with neuropathy (Chronic) 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 (Chronic) Chronic ulcer of right leg with fat layer exposed (Chronic) Venous insufficiency (Chronic) Lymphedema (Chronic) Edema, lower extremity (Chronic) Venous insufficiency (Chronic) Hospital Course and Treatment Consultations 12/21/18 14:42 Consult: Onc/Wound/automatic hemmer Routine Comment: Reason for Consult:: bilat lower leg lymphedema , bilateral wounds Comments:: was to restart treatment @ wound center today Summary of Care Provided: This patient was seen in conjunction with Monico Hutton PA-C . I have independently interviewed and examined the patient and reviewed pertinent historical, laboratory, and other data. Please refer to Monico Hutton PA-C note for details of this patient's presentation, findings, and recommendations. I have reviewed Monico Hutton PA-C note and concur with documented findings. Patient is a 78-year-old gentleman presented with a syncopal episode telemetry monitoring in the emergency department demonstrated significant sinus pauses. Runs of nonsustained VT with dilated cardiomyopathy with ejection fraction of 30% and RVSP of 70 mmHg. Consultation was placed to cardiology patient seen by Dr. Smith who recommended for patient to be transferred to [facility] to be evaluated by intake clerk Hospital course as documented above by Monico Hutton - Physical Exam Vital Signs Temp Pulse Resp BP Pulse Ox 96.9 F L 84 16 93/72 100 12/21/18 20:00 12/21/18 20:00 12/21/18 20:00 12/21/18 20:00 12/21/18 20:00 Oxygen Flow Rate (L/min) 5 Oxygen Delivery Method Nasal Cannula Weight: 106.458 kg Body Mass Index (BMI) 36.7 Intake and Output for Last 24 Hours 12/20/18 12/21/18 12/22/18 23:59 23:59 23:59 Intake Total 250 / 250 Output Total 325 / 325 Balance -75 / -75 Laboratory Tests Past 24 Hrs 12/21/18 12/21/18 12/21/18 10:40 10:40 10:40 WBC 8.5 RBC 4.57 L Hgb 14.3 Hct 44.5 MCV 97.4 H MCH 31.3 MCHC 32.1 RDW 13.7 RDW Differential 48.6 H Plt Count 183 MPV 11.3 Immature Gran % (Auto) 0.100 Neut % (Auto) 72.8 H Lymph % (Auto) 14.4 L [place] % (Auto) 11.2 H Eos % (Auto) 1.4 Baso % (Auto) 0.1 Absolute Neuts (auto) 6.2 Absolute Lymphs (auto) 1.22 Total Counted Not Reportable PT 16.8 H INR 1.4 Sodium 136 Potassium 4.4 Chloride 99 Carbon Dioxide 34.0 H Anion Gap 3 L BUN 35 H Creatinine 1.26 Estim Creat Clear Calc 46.63 Est GFR (MDRD) Af Amer 72 Est GFR (MDRD) Non-Af 59 L BUN/Creatinine Ratio 27.8 H Glucose 228 H Calcium 9.3 Magnesium 2.0 Troponin I < 0.015 TSH 12/21/18 12/21/18 14:45 17:55 WBC RBC Hgb Hct MCV MCH MCHC RDW RDW Differential Plt Count MPV Immature Gran % (Auto) Neut % (Auto) Lymph % (Auto) [place] % (Auto) Eos % (Auto) Baso % (Auto) Absolute Neuts (auto) Absolute Lymphs (auto) Total Counted PT INR Sodium Potassium Chloride Carbon Dioxide Anion Gap BUN Creatinine Estim Creat Clear Calc Est GFR (MDRD) Af Amer Est GFR (MDRD) Non-Af BUN/Creatinine Ratio Glucose Calcium Magnesium 2.1 Troponin I 0.031 0.034 TSH 1.80 POC Glucose 12/21/18 16:19 POC Glucose 185 H Code Visit OBSV E&M: [id number] Observ/hosp same date L3
[2018-12-21] MEDS: Insulin Lispro 100 UNIT/ML INSULN.PEN SQ (17:51)
[2018-12-21] MEDS: 0.9% NaCl Peripheral Flush Adult/Peds IV (17:52)
--- NOTE | 2018-12-21 18:10 | NURSING ---
report called to [facility] for transfer to room 9861, consent for transfer signed per pt , present & voiced understanding of transfer pt notified children of transfer
[2018-12-21] MEDS: oxyCODONE 5 MG Tablet PO (18:51)
--- NOTE | 2018-12-21 20:59 | NURSING ---
Pt transferred to cot with assist x4, report to [facility] civil transportation engineer Michelle.
== END 2018-12-21 21:00 | disposition short-term general hospital (02) ==
LOC: ED 11:14 → ICU 14:07
PROVIDERS: Admitting Provider Internal Medicine; Emergency Provider Emergency Medicine; Visit Provider Internal Medicine
DX: I44.39 Other atrioventricular block (principal); I50.22 Chronic systolic (congestive) heart failure; J96.11 Chronic respiratory failure with hypoxia; I47.2 Ventricular tachycardia; I42.9 Cardiomyopathy, unspecified; E11.65 Type 2 diabetes mellitus with hyperglycemia; R00.1 Bradycardia, unspecified; E66.01 Morbid (severe) obesity due to excess calories; I48.0 Paroxysmal atrial fibrillation; I11.0 Hypertensive heart disease with heart failure; R55 Syncope and collapse; I27.20 Pulmonary hypertension, unspecified; I89.0 Lymphedema, not elsewhere classified; N40.0 Benign prostatic hyperplasia without lower urinary tract symptoms; E11.40 Type 2 diabetes mellitus with diabetic neuropathy, unspecified; S00.81XA Abrasion of other part of head, initial encounter; W19.XXXA Unspecified fall, initial encounter; Z87.891 Personal history of nicotine dependence; Z68.36 Body mass index [BMI] 36.0-36.9, adult; Z79.01 Long term (current) use of anticoagulants; Z99.81 Dependence on supplemental oxygen; Z79.84 Long term (current) use of oral hypoglycemic drugs; Z79.899 Other long term (current) drug therapy; E11.622 Type 2 diabetes mellitus with other skin ulcer; L97.822 Non-pressure chronic ulcer of other part of left lower leg with fat layer exposed; L97.812 Non-pressure chronic ulcer of other part of right lower leg with fat layer exposed; E11.51 Type 2 diabetes mellitus with diabetic peripheral angiopathy without gangrene; I08.3 Combined rheumatic disorders of mitral, aortic and tricuspid valves
CPT/HCPCS: 70450; 71045; 71100; 80048; 82962; 83735; 84443; 84484; 85025; 85610; 93005; 93306; 96374; 96375; 99218; 99285; Q9957; A4216; G0378; J2405

== ENCOUNTER 2021-07-19 22:55 | Emergency (ER) | payer OTHER, SELFPAY ==
[2021-07-19 22:57] VITALS: BP 112/54; PULSE 60; RESP 18; TEMP 36.4; O2SAT 95; BMI 29.3
[2021-07-19 23:02] VITALS: BP 112/54; PULSE 60; RESP 18; TEMP 36.4; O2SAT 98
[2021-07-19] MEDS: Lidocaine Jelly 2% 20 ML Syringe (URO-JET) 20 APPLIC TOPICAL (23:30)
--- NOTE | 2021-07-19 23:30 | EDS_ITS ---
HPI History of Present Illness Chief Complaint: Complaint Informant: patient and SNF Narrative Narrative: Patient states he has had a catheter since he was discharged from [facility] for the last month or 2, he has been at assisted facility, he states that there have been issues with the catheter since the longterm changed it about a week ago although patient is unable to provide any details in a longterm provided nothing. They changed it today, and all there was was blood so they remove the catheter and sent him to the emergency department. He feels like he needs to urinate but cannot. He is on Eliquis for history of chronic atrial fibrillation. He has a pacemaker. He denies any other symptoms right now. [facility] Medical History (Updated 07/20/21 @ 01:[address] 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 Congestive heart failure Diabetes mellitus with neuropathy Falls Hyperlipemia Hypertension Hypokalemia Peripheral vascular disease Physical deconditioning Pleural effusion Retention of urine Retention of urine due to occlusion of Martin catheter SOB (shortness of breath) Tinea cruris UTI (urinary tract infection) Venous insufficiency Venous stasis dermatitis Home Medications furosemide [Lasix] 40 mg PO BID 01/17/18 [History Last Taken 12/20/18] polyethylene glycol 3350 17 g PO DAILY 01/17/18 [History Last Taken 12/19/18] potassium chloride [Klor-Con M20] 20 meq PO BID 01/17/18 [History Last Taken 12/21/18] tamsulosin 0.4 mg PO QHS 01/17/18 [History Last Taken 12/20/18] Eliquis 5 mg PO BID 12/21/18 [History Last Taken 12/21/18] atorvastatin 40 mg PO QHS 12/21/18 [History Last Taken 12/20/18] clotrimazole-betamethasone 1 applic TOPICAL DAILY PRN 12/21/18 [History Last Taken 12/20/18] glipizide 5 mg PO BIDAC 12/21/18 [History Last Taken 12/21/18] lisinopril [Zestril] 2.5 mg PO DAILY 12/21/18 [History Last Taken 12/21/18] metformin 500 mg PO BIDCM 12/21/18 [History Last Taken 12/21/18] spironolactone [Aldactone] 25 mg PO DAILY 12/21/18 [History Last Taken 12/21/18] terbinafine HCl 250 mg PO DAILY 12/21/18 [History Last Taken 12/21/18] Carafate 1 gm PO/SL BID 07/19/21 [History Last Taken Unknown] Colace 100 mg PO/SL PRN PRN 07/19/21 [History Last Taken Unknown] Humalog KwikPen Insulin 0 - 15 units OTHER ACHS 07/19/21 [History Last Taken Unknown] MagOx 400 mg PO/SL BID 07/19/21 [History Last Taken Unknown] Vitamin D3 4,000 unit PO/SL PCHS 07/19/21 [History Last Taken Unknown] acetaminophen 650 mg PO/SL PRN PRN 07/19/21 [History Last Taken Unknown] bisacodyl 10 mg NOTE PRN PRN 07/19/21 [History Last Taken Unknown] finasteride 5 mg PO/SL DAILY 07/19/21 [History Last Taken Unknown] metformin 500 mg PO/SL BID 07/19/21 [History Last Taken Unknown] pantoprazole [Protonix] 40 mg PO DAILY 07/19/21 [History Last Taken Unknown] tamsulosin 0.4 mg PO DAILY 07/19/21 [History Last Taken Unknown] Allergy/AdvReac Type Severity Reaction Status Date / Time tolterodine [From Detrol] Allergy Unknown Verified 12/21/18 15:10 Social History Smoking Status: Never smoker ROS ROS ED Constitutional Constitutional ED: Denies chills, fever(s) or sweats Eyes Eyes: Denies change in vision or diplopia ENT ENT ED: Denies rhinorrhea or sore throat Cardiovascular Cardiovascular: Denies chest pain or palpitations Respiratory/Chest Respiratory/Chest: Denies cough or dyspnea Gastrointestinal Gastrointestinal: Reports abdominal pain; Denies diarrhea, nausea or vomiting Genitourinary Genitourinary ED: Reports hematuria; Denies low back pain or scrotal pain Musculoskeletal Musculoskeletal: Denies back pain or neck pain Integumentary Denies abscess or rash Neurologic Neurologic: Denies headache(s), paresthesias or weakness EXAM Physical Exam Const Vital Signs: 07/19/21 22:57 07/19/21 23:02 07/19/21 23:31 Temperature 97.6 F L 97.6 F L Temperature Source Oral Oral Pulse Rate 60 60 60 Respiratory Rate 18 18 18 Blood Pressure 112/54 L 112/54 L 106/63 Blood Pressure Mean 73 73 77 Pulse Ox 95 98 98 Oxygen Delivery Method Nasal Cannula Nasal Cannula Nasal Cannula Oxygen Flow Rate (L/min) 2 2 Positive well nourished and well developed General Appearance ED: well developed and NAD HEENT Reports moist mucous membranes normocephalic and atraumatic Eyes PERRL and EOMs intact bilaterally Neck full ROM and supple Resp normal respiratory effort and clear to auscultation bilaterally Cardio regular rate, regular rhythm and no murmurs GI non-distended GI Narrative: Mild suprapubic tenderness otherwise benign abdomen. No guarding rebound tenderness. Auscultation: normoactive bowel sounds Palpation: soft no CVA tenderness Narrative: Blood at urethral meatus without active bleeding. Back/Spine no CVA tenderness General Back: other FROM Extremity normal to inspection General Extremety ED: Negative for edema, pulses abnormal or tenderness General Extremity: Negative for edema or pulses abnormal Neuro oriented x3, CN's II-XII intact bilaterally and no sensory deficits noted Sensorium / Orientation: awake and alert Motor Exam: strength 5/5 throughout Skin no rashes or lesions noted and no wounds MDM MDM MDM Narrative Medical decision making narrative: We initially placed a 24 Pashto triple-lumen catheter after Urojet pretreatment, however it was not able to pass into the bladder, there was resistance and blood, we withdrew and then placed an 18-gauge single-lumen coud? catheter, nurses were able to get it into the bladder and there was nonbloody urine that flowed out about a liter. Patient felt much better confirming urinary retention. He then started to have a small amount of blood, we irrigated it it improved and stayed just mildly pink and no clots. It is flowing into think he can go back. Most of the blood appeared to be from probably the prostate/urethra, I suspect he had a false tract and luckily we found the true lumen and place a catheter within it. I recommend holding his Eliquis for the next 3 days unless he is still having bleeding at that time he may need to hold it for longer. Lab Data Attestation: I reviewed the patient's lab results. Labs: Laboratory Results - last 24 hr 07/20/21 00:11 Urine Color Red Urine Clarity Cloudy Urine pH 7.0 Ur Specific [place] 1.005 Urine Protein 100 H Urine Glucose (UA) Normal Urine Ketones Negative Urine Occult Blood 250 H Urine Nitrite Negative Urine Bilirubin Negative Urine Urobilinogen 1 H Ur Leukocyte Esterase 100 H Urine RBC > 100 SEEN Urine WBC 5-10 SEEN Ur Squamous Epith Cells 0 SEEN Urine Bacteria 0 SEEN Urine Mucus 0 SEEN Discharge Plan Triage Chief Complaint: Complaint ED Provider: Kyaw Dixon Dx/Rx/DC Orders Clinical Impression: Acute urinary retention, Hematuria, Anticoagulated Instructions: ED Martin Catheter, Care, ED Hematuria Prescriptions: Continued furosemide [Lasix] 40 MG tablet 40 mg PO BID RF: 0 polyethylene glycol 3350 17 GM powder in packet 17 g PO DAILY RF: 0 potassium chloride [Klor-Con M20] 20 MEQ tablet 20 meq PO BID RF: 0 tamsulosin 0.4 MG capsule 0.4 mg PO QHS RF: 0 metformin 500 MG tablet 500 mg PO BIDCM RF: 0 atorvastatin 80 MG tablet 40 mg PO QHS RF: 0 spironolactone [Aldactone] 25 MG tablet 25 mg PO DAILY RF: 0 lisinopril [Zestril] 5 MG tablet 2.5 mg PO DAILY RF: 0 glipizide 5 MG tablet 5 mg PO BIDAC RF: 0 terbinafine HCl 250 MG tablet 250 mg PO DAILY RF: 0 clotrimazole-betamethasone 1 APPLIC cream 1 applic topical DAILY PRN (Reason: dressing changes) RF: 0 tamsulosin 0.4 mg Capsule 0.4 mg PO DAILY RF: 0 pantoprazole [Protonix] 40 mg Tablet,Delayed Release (Dr/Ec) 40 mg PO DAILY RF: 0 Carafate 1 gm PO/SL BID RF: 0 Colace 100 mg PO/SL PRN PRN (Reason: Constipation) RF: 0 Humalog KwikPen Insulin 100 units 0 - 15 units OTHER ACHS RF: 0 MagOx 400 mg PO/SL BID RF: 0 Vitamin D3 4,000 unit PO/SL PCHS RF: 0 acetaminophen 650 mg PO/SL PRN PRN (Reason: Pain) RF: 0 bisacodyl 10 mg NOTE PRN PRN (Reason: Laxative Effect) RF: 0 finasteride 5 mg PO/SL DAILY RF: 0 metformin 500 mg PO/SL BID RF: 0 Held Eliquis 5 MG tablet 5 mg PO BID RF: 0 Hold Instructions: Resume on 07/24/21. If no bleeding in or around the catheter, may resume. Do not remove catheter unless no bleeding for at least 2 days while back on Eliquis. Primary Care Provider: Rhiannon Fajardo Referrals: Rhiannon Fajardo MD [Primary Care Provider] - Eleuterio Moralez MD [STAFF PHYSICIAN] - 1 Week if not improving Disposition Disposition: Home, Self Care
[2021-07-19 23:31] VITALS: BP 106/63; PULSE 60; RESP 18; O2SAT 98
--- NOTE | 2021-07-20 00:02 | ED.RN ---
ATTEMPTED TO [address]ACE [address] HART CATHETER, UNABLE TO PASS BY PROSTATE. BLOOD NOTED IN TUBE, NO URINE OUTPUT. DR. HOWARD NOTIFIED. VERBAL ORDER FOR [address] COUDE TO BE PLACED.
[2021-07-20 00:17] LABS: Bacteria 0 SEEN /hpf (None Seen); Mucous, Urine 0 SEEN /hpf (<or=2+); Squamous Epithelial Cells - UA 0 SEEN /hpf (0-5)
[2021-07-20 00:25] LABS: Color, Urine Red (Yellow); Glucose, Dipstick Normal (Normal); Ketone-Dipstick Negative (Negative); Leukocyte Esterase-Dipstick 100 /ul (Negative); Nitrite-Dipstick Negative (Negative); Occult Blood-Urine 250 /ul (Negative); Protein-Dipstick 100 mg/dl (Negative); Specific Gravity, Urine 1.005 (1.002-1.030); Urine Bilirubin Dipstick Negative (Negative); Urine Clarity Cloudy (Clear); Urine Urobilinogen 1 mg/dl (Normal)
[2021-07-20 00:30] LABS: Red Blood Cells-Urine > 100 SEEN /hpf (0-5); White Blood Cells 5-10 SEEN /hpf (0-5)
--- NOTE | 2021-07-20 01:54 | ED.RN ---
RN REPORT CALLED TO THE AVENUE.
[2021-07-20 01:55] VITALS: BP 116/56; PULSE 60; RESP 20; O2SAT 98
== END 2021-07-20 03:07 | disposition home or self-care (01) ==
PROVIDERS: Emergency Provider Emergency Medicine; PCP Internal Medicine
DX: R33.9 Retention of urine, unspecified (principal); R31.9 Hematuria, unspecified; Z79.01 Long term (current) use of anticoagulants; E78.5 Hyperlipidemia, unspecified; I11.0 Hypertensive heart disease with heart failure; I50.9 Heart failure, unspecified; E11.40 Type 2 diabetes mellitus with diabetic neuropathy, unspecified; N40.1 Benign prostatic hyperplasia with lower urinary tract symptoms; Z79.4 Long term (current) use of insulin; Z95.0 Presence of cardiac pacemaker; Z79.899 Other long term (current) drug therapy
CPT/HCPCS: 51702; 81001; 99285

== ENCOUNTER 2021-09-23 09:35 | Emergency (ER) | payer OTHER, SELFPAY ==
[2021-09-23] VITALS (7 sets, daily range): BP systolic 108–131; BP diastolic 57–81; PULSE 60–88; RESP 16–18; TEMP 36.9–37.2; O2SAT 95–99; BMI 28.5
--- NOTE | 2021-09-23 10:39 | RAD_ITS ---
STUDY: X-RAY CHEST REASON FOR EXAM: Male, 81 years old. sob TECHNIQUE: Single AP portable view of the chest. COMPARISON: Comparison is made with prior study dated 12/21/2018. FINDINGS: EKG electrodes are seen. Bibasilar infiltrates are seen worse at the left lung base. There is no demonstrated pleural abnormality. There is moderate cardiac enlargement. A left-sided dual-chamber pacemaker is seen. Normal mediastinum and molly. Normal visualized pulmonary arteries. There is atherosclerotic calcification of the aortic arch with tortuosity. There are diffuse degenerative changes of the visualized thoracic spine. Normal visualized ribs, clavicles, and shoulders. There is no demonstrated abnormality of the visualized soft tissue structures of the upper abdomen. RAD/Chest 1 View (Portable) IMPRESSION: Bibasilar pulmonary infiltrates worse at the left lung base. Electronically Signed: Yoan Moreau MD at 12:04 EST , Service support ,
--- NOTE | 2021-09-23 10:39 | EKG12_ITS ---
Test Reason : SOB Blood Pressure : / mmHG Vent. Rate : 060 BPM Atrial Rate : 038 BPM P-R Int : 000 ms QRS Dur : 152 ms QT Int : 460 ms P-R-T Axes : 000 207 -09 degrees QTc Int : 460 ms Ventricular-paced rhythm Biventricular pacemaker detected Abnormal ECG Confirmed by SHAHLA MILLIGAN, CHANNING ([id number]), photographic editor FLORIN BERNARD ([id number]) on 09/24/2021 1:53:46 PM Referred By: SEBASTIAN Confirmed By:CHANNING GALE MD
--- NOTE | 2021-09-23 10:40 | EDS_ITS ---
HPI History of Present Illness Chief Complaint: Shortness of Breath Informant: patient Narrative Narrative: Patient is rather hard of hearing but I think I can get a good history from him. He states he has been more short of breath for 2 or maybe 3 days. He does not get up and walk so there is really nothing that makes this better or worse. He is not sure if laying down makes it worse. He states is not that bad but it is different than his baseline. He is not really coughing. He does not have chest pain. He does not think the legs are swelling more. He does not know if he has gained weight. He does have a history of CHF. He also has an ICD pacemaker in. He is on Eliquis and taking it for history of atrial fibrillation. He was admitted several months ago to the hospital for what sounds like a bad episode of congestive heart failure. He has been in a nursing facility since then. He has not been vaccinated against COVID. However he has been tested several times they are negative. He does not know when the last test was. 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 ulcer of right leg with fat layer exposed Congestive heart failure Diabetes mellitus with neuropathy [place] Hyperlipemia Hypertension Hypokalemia Peripheral vascular disease Physical deconditioning Pleural effusion Retention of urine Retention of urine due to occlusion of Martin catheter SOB (shortness of breath) Tinea cruris UTI (urinary tract infection) Venous insufficiency Venous stasis dermatitis Home Medications furosemide [Lasix] 40 mg PO BID 01/17/18 [History Last Taken 12/20/18] polyethylene glycol 3350 17 g PO DAILY 01/17/18 [History Last Taken 12/19/18] potassium chloride [Klor-Con M20] 20 meq PO BID 01/17/18 [History Last Taken 12/21/18] tamsulosin 0.4 mg PO QHS 01/17/18 [History Last Taken 12/20/18] Eliquis 5 mg PO BID 12/21/18 [History Last Taken 12/21/18] atorvastatin 40 mg PO QHS 12/21/18 [History Last Taken 12/20/18] clotrimazole-betamethasone 1 applic TOPICAL DAILY PRN 12/21/18 [History Last Taken 12/20/18] glipizide 5 mg PO BIDAC 12/21/18 [History Last Taken 12/21/18] lisinopril [Zestril] 2.5 mg PO DAILY 12/21/18 [History Last Taken 12/21/18] metformin 500 mg PO BIDCM 12/21/18 [History Last Taken 12/21/18] spironolactone [Aldactone] 25 mg PO DAILY 12/21/18 [History Last Taken 12/21/18] terbinafine HCl 250 mg PO DAILY 12/21/18 [History Last Taken 12/21/18] Carafate 1 gm PO/SL BID 07/19/21 [History Last Taken Unknown] Colace 100 mg PO/SL PRN PRN 07/19/21 [History Last Taken Unknown] Humalog KwikPen Insulin 0 - 15 units OTHER ACHS 07/19/21 [History Last Taken Unknown] MagOx 400 mg PO/SL BID 07/19/21 [History Last Taken Unknown] Vitamin D3 4,000 unit PO/SL PCHS 07/19/21 [History Last Taken Unknown] acetaminophen 650 mg PO/SL PRN PRN 07/19/21 [History Last Taken Unknown] bisacodyl 10 mg NOTE PRN PRN 07/19/21 [History Last Taken Unknown] finasteride 5 mg PO/SL DAILY 07/19/21 [History Last Taken Unknown] metformin 500 mg PO/SL BID 07/19/21 [History Last Taken Unknown] pantoprazole [Protonix] 40 mg PO DAILY 07/19/21 [History Last Taken Unknown] tamsulosin 0.4 mg PO DAILY 07/19/21 [History Last Taken Unknown] levofloxacin 750 mg PO DAILY #7 tab 09/23/21 [Rx Last Taken Unknown] Allergy/AdvReac Type Severity Reaction Status Date / Time tolterodine [From Detrol] Allergy Unknown Verified 12/21/18 15:10 Social History Smoking Status: Never smoker ROS ROS ED Constitutional Constitutional ED: Denies chills or fever(s) Eyes Eyes: Denies blurry vision ENT ENT ED: Denies rhinorrhea or sore throat Cardiovascular Cardiovascular: Denies chest pain or palpitations Respiratory/Chest Respiratory/Chest: Reports dyspnea; Denies cough or sputum Gastrointestinal Gastrointestinal: Denies diarrhea, nausea or vomiting Genitourinary Genitourinary ED: Reports other Details: Patient has had acute urinary catheter in since admission several months ago. He has no complaints related to it. Musculoskeletal Musculoskeletal: Denies myalgias Integumentary Denies rash Neurologic Neurologic: Denies headache(s) Endocrine Endocrinology: Denies polydipsia or polyuria Hematologic/Lymphatic Hematologic/Lymphatic: Reports easy bleeding and easy bruising Allergic/Immunologic Allergic/Immunologic ED: Denies mouth swelling, tongue swelling or urticaria EXAM Physical Exam Const Vital Signs: 09/23/21 09:36 09/23/21 10:22 09/23/21 10:23 Temperature 98.4 F 98.4 F Temperature Source Oral Temporal Pulse Rate 60 60 Respiratory Rate 18 18 Respiratory Effort Short of Breath Respiratory Depth Shallow Respiratory Pattern Tachypnea Blood Pressure 108/59 L 131/64 H Blood Pressure Mean 75 86 Pulse Ox 95 98 Oxygen Delivery Method Nasal Cannula Nasal Cannula Nasal Cannula Oxygen Flow Rate (L/min) 4 4 09/23/21 12:00 09/23/21 12:35 09/23/21 13:00 Temperature 98.4 F 98.9 F Temperature Source Temporal Temporal Pulse Rate 60 88 Respiratory Rate 18 16 Respiratory Effort Respiratory Depth Respiratory Pattern Blood Pressure 108/61 114/81 H Blood Pressure Mean 76 92 Pulse Ox 99 99 97 Oxygen Delivery Method Nasal Cannula Nasal Cannula Nasal Cannula Oxygen Flow Rate (L/min) 4 4 09/23/21 14:00 Temperature 98.4 F Temperature Source Temporal Pulse Rate 60 Respiratory Rate 18 Respiratory Effort Respiratory Depth Respiratory Pattern Blood Pressure 110/57 L Blood Pressure Mean 74 Pulse Ox 96 Oxygen Delivery Method Nasal Cannula Oxygen Flow Rate (L/min) 3 Positive well nourished and well developed General Appearance ED: well developed, NAD and pallor HEENT Reports moist mucous membranes atraumatic Eyes Eyes Narrative: Very mild pallor. General Eye ED: Yes pale conjunctiva; Negative for scleral icterus Neck no meningeal signs and no JVD Resp No clear to auscultation bilaterally Resp Narrative: Slightly increased respiratory effort. However, he can carry on a normal conversation. He does have rales at the lower third or so of his lungs. I do not hear wheezes or rhonchi. His saturations 99% on 4 L. He is normally on 3 L. Effort and Inspection: Negative for pain with movement Auscultation: rales; Negative for rhonchi or wheezes Cardio regular rate and regular rhythm Cardio Narrative: Heart is regular. However, he is also paced on the monitor. GI non-tender and non-distended Palpation: soft Narrative: Martin catheter. Urine looks to be pale yellow. Its not cloudy or bloody. Extremity normal to inspection Extremity Narrative: He does have some chronic mild edema and chronic stasis changes but the legs are soft and nontender. There is no cord. No notable pitting. General Extremety ED: Negative for tenderness Neuro oriented x3 Sensorium / Orientation: alert Psych mental status grossly normal Skin Skin Narrative: Mild pallor. General Skin Exam: pallor Lesions: no lesions Rashes: no rashes MDM MDM MDM Narrative Medical decision making narrative: Patient CBC is overall normal. He does have some anemia. This is new for many years ago. However, he has had an extended hospital stay in a shelter. He does not have black or bloody stools. This is not likely the source of dyspnea. Electrolytes showed some mild bump in his creatinine. Potassium was just minimally elevated. No peaked T waves. BNP was only slightly elevated at 312. This does not support significant CHF. Troponin was negative. Patient's been comfortable the whole time here. His breathing is good. On his normal oxygen level his saturations are 94 to 95%. His x-ray is hinting of an infiltrate. I will get him started on antibiotics. He would prefer to go back to the shelter. I think this is a reasonable option. Lab Data Attestation: I reviewed the patient's lab results. Labs: Laboratory Results - last 24 hr 09/23/21 09/23/21 09/23/21 10:55 10:55 10:55 WBC 6.9 RBC 3.30 L Hgb 10.4 L Hct 34.9 L MCV 105.8 H MCH 31.5 MCHC 29.8 L RDW Std Deviation 54.0 H RDW Coeff of Simón 13.8 Plt Count 205 MPV 10.7 Immature Gran % (Auto) 0.400 Neut % (Auto) 78.8 H Lymph % (Auto) 10.1 L Casey % (Auto) 7.5 Eos % (Auto) 2.9 Baso % (Auto) 0.3 Absolute Neuts (auto) 5.4 Absolute Lymphs (auto) 0.70 L Nucleated RBC % 0 Sodium 137 Potassium 5.5 H Chloride 93 L Carbon Dioxide 43.0 H Anion Gap 1 L BUN 46 H Creatinine 1.50 H Estim Creat Clear Calc 46.43 Est GFR (MDRD) Af Amer 58 L Est GFR (MDRD) Non-Af 48 L BUN/Creatinine Ratio 30.7 H Glucose 165 H Calcium 9.3 Troponin I High Sens 46 B-Natriuretic Peptide 312.2 H Radiography Diagnostic Testing: Clinical Impression(s) from Imaging Studies Chest X-Ray 09/23/21 10:39 IMPRESSION: Bibasilar pulmonary infiltrates worse at the left lung base. Electronically Signed: Yoan Moreau MD at 12:04 EST , Service support , EKG Initial EKG: Comments: EKG done for dyspnea read by me shows regular paced rhythm with overall rate of 60. No additional systoles. Typical paced bundle pattern. No sign of acute ST elevation or depression. QRS duration is wide. QTc is normal. Discharge Plan Triage Chief Complaint: Shortness of Breath ED Provider: Lg Fernandes Dx/Rx/DC Orders Clinical Impression: Pneumonia, Dyspnea Instructions: ED Pneumonia (Adult) Prescriptions: New levofloxacin 750 mg tablet 750 mg PO DAILY Qty: 7 RF: 0 No Action furosemide [Lasix] 40 MG tablet 40 mg PO BID RF: 0 polyethylene glycol 3350 17 GM powder in packet 17 g PO DAILY RF: 0 potassium chloride [Klor-Con M20] 20 MEQ tablet 20 meq PO BID RF: 0 tamsulosin 0.4 MG capsule 0.4 mg PO QHS RF: 0 metformin 500 MG tablet 500 mg PO BIDCM RF: 0 atorvastatin 80 MG tablet 40 mg PO QHS RF: 0 spironolactone [Aldactone] 25 MG tablet 25 mg PO DAILY RF: 0 lisinopril [Zestril] 5 MG tablet 2.5 mg PO DAILY RF: 0 glipizide 5 MG tablet 5 mg PO BIDAC RF: 0 Eliquis 5 MG tablet 5 mg PO BID RF: 0 Hold Instructions: Resume on 07/24/21. If no bleeding in or around the catheter, may resume. Do not remove catheter unless no bleeding for at least 2 days while back on Eliquis. terbinafine HCl 250 MG tablet 250 mg PO DAILY RF: 0 clotrimazole-betamethasone 1 APPLIC cream 1 applic topical DAILY PRN (Reason: dressing changes) RF: 0 tamsulosin 0.4 mg Capsule 0.4 mg PO DAILY RF: 0 pantoprazole [Protonix] 40 mg Tablet,Delayed Release (Dr/Ec) 40 mg PO DAILY RF: 0 Carafate 1 gm PO/SL BID RF: 0 Colace 100 mg PO/SL PRN PRN (Reason: Constipation) RF: 0 Humalog KwikPen Insulin 100 units 0 - 15 units OTHER ACHS RF: 0 MagOx 400 mg PO/SL BID RF: 0 Vitamin D3 4,000 unit PO/SL PCHS RF: 0 acetaminophen 650 mg PO/SL PRN PRN (Reason: Pain) RF: 0 bisacodyl 10 mg NOTE PRN PRN (Reason: Laxative Effect) RF: 0 finasteride 5 mg PO/SL DAILY RF: 0 metformin 500 mg PO/SL BID RF: 0 Primary Care Provider: Rhiannon Fajardo Referrals: Rhiannon Fajardo MD [Primary Care Provider] - 3-5 Days Disposition Disposition: Home, Self Care Discharge Date/Time: 09/23/21 15:06
[2021-09-23 11:05] LABS: Absolute Neutrophil Count 5.4 X10^3/uL (2.0-7.7); Basophil# 0.02 X10^3/uL; Basophil% 0.3 % (0-1); Eosinophils% 2.9 % (0-5); Hematocrit 34.9 % (40-54); Hemoglobin 10.4 g/dL (13.0-16.5); Lymphocyte % 10.1 % (19-41); Mean Corp Hgb Conc 29.8 g/dL (32-36); Mean Corpuscular Hgb 31.5 pg (27.0-32.0); Mean Corpuscular Volume 105.8 fL (80-94); Mean Platelet Vol. 10.7 fl (6.2-12.0); Monocyte# 0.52 X10^3/uL; Monocyte% 7.5 % (0-10); NRBC Flagged by Analyzer 0 % (0-5); Neutrophil # 5.44 X10^3/uL (2.7-7.7); Neutrophil % 78.8 % (47-70); Platelet Count 205 K/mm3 (150-450); RBC Distribution Width CV 13.8 % (11.6-14.6); White Blood Count 6.9 K/mm3 (4.4-11.0)
[2021-09-23 11:22] LABS: Anion Gap 1 (5-15); BUN 46 mg/dL (7-18); BUN/Creat Ratio 30.7 RATIO (10-20); Calcium,Total 9.3 mg/dL (8.5-10.1); Chloride 93 mmol/L (98-107); EST Glomerular Filtration Rate 48 mL/min (>60); Est Glom Filt Rate - Afr Amer 58 mL/min (>60); Estimated Creatinine Clearance 46.43 ml/min; Glucose 165 mg/dL (74-106); Potassium 5.5 mmol/L (3.5-5.1); Sodium Level 137 mmol/L (136-145); Troponin-I HS 46 pg/mL (3.0-78.0)
[2021-09-23 12:51] LABS: BNP,B-Type NATRIURETIC PEPTIDE 312.2 pg/mL (0-100)
[2021-09-23] MEDS: Sodium Polystyrene Sulfonate 15 GM/60 ML UDC 7.5 GM PO (13:45)
[2021-09-23] MEDS: levoFLOXacin IV 500 MG/100 ML BAG 100 MG IV (13:45)
== END 2021-09-23 15:06 | disposition home or self-care (01) ==
PROVIDERS: Emergency Provider Emergency Medicine; PCP Internal Medicine; Visit Provider Emergency Medicine
DX: J18.9 Pneumonia, unspecified organism (principal); E11.51 Type 2 diabetes mellitus with diabetic peripheral angiopathy without gangrene; I11.0 Hypertensive heart disease with heart failure; I42.9 Cardiomyopathy, unspecified; I50.9 Heart failure, unspecified; E11.40 Type 2 diabetes mellitus with diabetic neuropathy, unspecified; Z95.810 Presence of automatic (implantable) cardiac defibrillator; E78.5 Hyperlipidemia, unspecified; Z79.01 Long term (current) use of anticoagulants; Z79.899 Other long term (current) drug therapy; N40.0 Benign prostatic hyperplasia without lower urinary tract symptoms; Z87.440 Personal history of urinary (tract) infections; Z79.84 Long term (current) use of oral hypoglycemic drugs; Z96.0 Presence of urogenital implants; D64.9 Anemia, unspecified
CPT/HCPCS: 71045; 80048; 83880; 84484; 85025; 87426; 93005; 96365; 99285; J7050

== ENCOUNTER 2021-10-09 15:06 | Inpatient (IN) | payer OTHER, SELFPAY ==
[2021-10-09] VITALS (20 sets, daily range): BP systolic 95–168; BP diastolic 64–149; PULSE 60–77; RESP 12–35; TEMP 35.5–36.4; O2SAT 90–97; BMI 29.7; BMI 27.6
--- NOTE | 2021-10-09 15:39 | EDS_ITS ---
HPI History of Present Illness Chief Complaint: Abn Labs Informant: patient and SNF Onset/Context/Timing Onset: Today Current Severity: Mild Maximum Severity: Mild Narrative Narrative: 81-year-old male extensive past medical history including A. fib, cardiomyopathy, diabetes, CHF, respiratory failure chronic lymphedema. Last 3 months he has been a resident at the [facility]. Patient was hospitalized about 2 weeks ago for pneumonia. They marga labs today and his CO2 was elevated. Staff at the nursing facility thought he had decreased mental status so they sent in the emergency department. Patient denies any complaints himself. Currently is awake and alert. 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 Chronic ulcer of right leg with fat layer exposed Congestive heart failure Diabetes mellitus with neuropathy Falls Hyperlipemia Hypertension Hypokalemia Peripheral vascular disease Physical deconditioning Pleural effusion Retention of urine Retention of urine due to occlusion of Martin catheter SOB (shortness of breath) Tinea cruris UTI (urinary tract infection) Venous insufficiency Venous stasis dermatitis Home Medications furosemide [Lasix] 40 mg PO BID 01/17/18 [History Last Taken 12/20/18] polyethylene glycol 3350 17 g PO DAILY 01/17/18 [History Last Taken 12/19/18] potassium chloride [Klor-Con M20] 20 meq PO BID 01/17/18 [History Last Taken 12/21/18] tamsulosin 0.4 mg PO QHS 01/17/18 [History Last Taken 12/20/18] Eliquis 5 mg PO BID 12/21/18 [History Last Taken 12/21/18] atorvastatin 40 mg PO QHS 12/21/18 [History Last Taken 12/20/18] clotrimazole-betamethasone 1 applic TOPICAL DAILY PRN 12/21/18 [History Last Taken 12/20/18] glipizide 5 mg PO BIDAC 12/21/18 [History Last Taken 12/21/18] lisinopril [Zestril] 2.5 mg PO DAILY 12/21/18 [History Last Taken 12/21/18] metformin 500 mg PO BIDCM 12/21/18 [History Last Taken 12/21/18] spironolactone [Aldactone] 25 mg PO DAILY 12/21/18 [History Last Taken 12/21/18] terbinafine HCl 250 mg PO DAILY 12/21/18 [History Last Taken 12/21/18] Carafate 1 gm PO/SL BID 07/19/21 [History Last Taken Unknown] Colace 100 mg PO/SL PRN PRN 07/19/21 [History Last Taken Unknown] Humalog KwikPen Insulin 0 - 15 units OTHER ACHS 07/19/21 [History Last Taken Unknown] MagOx 400 mg PO/SL BID 07/19/21 [History Last Taken Unknown] Vitamin D3 4,000 unit PO/SL PCHS 07/19/21 [History Last Taken Unknown] acetaminophen 650 mg PO/SL PRN PRN 07/19/21 [History Last Taken Unknown] bisacodyl 10 mg NOTE PRN PRN 07/19/21 [History Last Taken Unknown] finasteride 5 mg PO/SL DAILY 07/19/21 [History Last Taken Unknown] metformin 500 mg PO/SL BID 07/19/21 [History Last Taken Unknown] pantoprazole [Protonix] 40 mg PO DAILY 07/19/21 [History Last Taken Unknown] tamsulosin 0.4 mg PO DAILY 07/19/21 [History Last Taken Unknown] levofloxacin 750 mg PO DAILY #7 tab 09/23/21 [Rx Last Taken Unknown] Allergy/AdvReac Type Severity Reaction Status Date / Time tolterodine [From Detrol] Allergy Unknown Verified 10/09/21 15:13 Social History Smoking Status: Never smoker ROS ROS ED ROS Narrative Denies recent illness. Review of Systems ROS Unobtainable: Denies due to encephalopathy Constitutional Constitutional ED: Denies chills or fever(s) Eyes Eyes: Denies change in vision ENT ENT ED: Denies ear pain Cardiovascular Cardiovascular: Denies chest pain Respiratory/Chest Respiratory/Chest: Denies dyspnea Gastrointestinal Gastrointestinal: Denies abdominal pain Genitourinary Genitourinary ED: Denies dysuria Musculoskeletal Musculoskeletal: Denies myalgias Integumentary Denies rash Neurologic Neurologic: Denies headache(s) Psychiatric Psychiatric: Denies depression Endocrine Endocrinology: Denies polyuria Allergic/Immunologic Allergic/Immunologic ED: Denies urticaria EXAM Physical Exam Narrative Exam Narrative: 81-year-old male vital signs are stable was afebrile. He does not look septic or toxic. His pulse ox is 94% on 2 L. He is chronically on oxygen. HEENT exam unremarkable atraumatic moist mucous membranes. Neck nontender. No lymphadenopathy. Lungs clear to auscultation. Heart regular rhythm rate about 60 no murmur. Abdomen soft nontender normal bowel sounds no peritoneal signs. Moving all 4 extremities. Normal peat shredder tender strength. Chronic lymphedema both lower extremities. Chronic indwelling Martin catheter. Neurologically gentleman is awake and alert at this time. He is answering questions and following commands. He is hard of hearing. Const Vital Signs: 10/09/21 15:08 10/09/21 15:14 10/09/21 16:30 Temperature 97.6 F L Temperature Source Oral Pulse Rate 61 60 Respiratory Rate 15 18 Respiratory Effort Normal Non-Labored Respiratory Pattern Normal Normal Blood Pressure Blood Pressure Mean Pulse Ox 94 97 Oxygen Delivery Method Nasal Cannula Oxygen Flow Rate (L/min) 2 Fraction of Inspired Oxygen (FIO2) 35 10/09/21 17:07 Temperature Temperature Source Pulse Rate 60 Respiratory Rate 19 H Respiratory Effort Respiratory Pattern Blood Pressure 103/72 Blood Pressure Mean 82 Pulse Ox 96 Oxygen Delivery Method Room Air Oxygen Flow Rate (L/min) Fraction of Inspired Oxygen (FIO2) Positive well nourished and well developed; Negative for cachectic, contractures or unkempt General Appearance ED: well developed and NAD; Negative for unkempt, cachectic, contractures, cyanotic or diaphoretic Nutritional Appearance: Negative for cachectic HEENT Reports moist mucous membranes Negative for trauma or tenderness Eyes PERRL and EOMs intact bilaterally Neck no lymphadenopathy, supple and no JVD General: Negative for tenderness Chest Wall inspection of chest normal and palpation of chest normal Resp normal respiratory effort and clear to auscultation bilaterally Auscultation: Negative for rales, rhonchi or wheezes Cardio regular rate, regular rhythm, S1 normal heart sound, S2 normal heart sound and no murmurs GI normal to inspection, nondistended, normoactive bowel sounds, non-tender, non- distended and no masses Inspection: Negative for abdominal distention Auscultation: normoactive bowel sounds Palpation: soft; Negative for tender, guarding or rebound tenderness present Back/Spine no CVA tenderness General Back: Negative for CVA tenderness Cervical Spine: Negative for cervical spine tenderness Thoracic Spine / Upper Back: Negative for thoracic spinal tenderness or paraspinal muscle tenderness Extremity Negative for normal to inspection Extremity Narrative: Chronic bilateral lower extremity lymphedema. General Extremety ED: Yes edema; Negative for tenderness General Extremity: edema Neuro Neuro Narrative: Patient is awake and alert. Generally weak. But has normal peat shredder tender strength. Is answering questions following commands. Is very hard of h earing. Sensorium / Orientation: alert; Negative for lethargic or stuporous Psych mental status grossly normal Appearance: Negative for unkempt Mood & Affect: Negative for depressed or tearful Skin no rashes or lesions noted and no wounds MDM MDM MDM Narrative Medical decision making narrative: 81-year-old male for extended care facility. I spoke to the facility. Today had labs drawn and his CO2 was 45. A sentiment to be evaluated. They thought he had decreased mental status at that time. Currently that is resolved. Patient has known history of respiratory failure is retaining CO2 and was started on BiPAP. I will speak to the hospitalist about admission. Repeat exam at 5:55 PM patient is doing well on BiPAP. Lab Data Attestation: I reviewed the patient's lab results. Lab results narrative: Chemistry shows potassium of 5.5 patient also rales left side gap of 3. BUN 39 creatinine 1.24 liver enzymes unremarkable. Chest x-ray chronic changes no acute process. Arterial blood gases a pH of 7.27 with a PCO2 of 103 consistent with CO2 retention. PO2 of 86 and a sat of 93. The patient was placed on BiPAP. Labs: Laboratory Results - last 24 hr 10/09/21 15:34 Sodium 139 Potassium 5.2 H Chloride 91 L Carbon Dioxide > 45.0 H* Anion Gap TNP BUN 39 H Creatinine 1.24 Estim Creat Clear Calc 56.16 Est GFR (MDRD) Af Amer 72 Est GFR (MDRD) Non-Af 60 BUN/Creatinine Ratio 31.5 H Glucose 89 Calcium 9.8 Total Bilirubin 0.30 AST 10 L ALT 13 L Alkaline Phosphatase 100 Total Protein 7.1 Albumin 3.3 Globulin 3.8 Albumin/Globulin Ratio 0.9 Radiography Chest X-Ray - ED: 1 View, Read by ED Physician, Lungs, Mediastinum, Bony Structures, No Acute Disease, Chronic Changes and Cardiomegaly Diagnostic Testing: Clinical Impression(s) from Imaging Studies Chest X-Ray 10/09/21 15:55 IMPRESSION: Low lung volumes. No acute findings. Electronically Signed: Binta Briceno MD at 16:26 EST , Chest x-ray, portable, single view interpreted by myself the radiologist shows chronic changes no acute process. Cardiomegaly. Critical Care Time Critical care time (excluding procedures): 30-74 minutes, Discussing w/Patient &/or Family/Deputy Director Of Finance, Discussing w/Consultants, Arranging Admission or Transfer, Performing Direct Patient Care at Bedside and - (33 min) Discharge Plan Dx/Rx/DC Orders Clinical Impression: Respiratory failure without hypercapnia, Acute on chronic respiratory acidosis Disposition Disposition: Acute Care [facility]
--- NOTE | 2021-10-09 15:55 | RAD_ITS ---
STUDY: X-RAY CHEST REASON FOR EXAM: Male, 81 years old. resp failure hx TECHNIQUE: Single AP portable view of the chest. COMPARISON: 09/23/2021. FINDINGS: Low lung volumes. The lungs are clear and expanded. There is no demonstrated pleural abnormality. There is mild cardiac enlargement. Pacemaker on the left. Normal mediastinum and molly. Normal visualized pulmonary arteries. Normal visualized aortic arch and descending thoracic aorta. Normal visualized thoracic spine. Normal visualized ribs, clavicles, and shoulders. There is no demonstrated abnormality of the visualized soft tissue structures of the upper abdomen. RAD/Chest 1 View (Portable) IMPRESSION: Low lung volumes. No acute findings. Electronically Signed: Binta Briceno MD at 16:26 EST Reading Location ID and State: [id number] / Tel , Service support ,
--- NOTE | 2021-10-09 16:00 | CPS ---
Critical CO2 value of 103.1, Dr. Ontiveros aware.
[2021-10-09 16:17] LABS: ALB/GLOB Ratio 0.9 RATIO (0.9-2.4); AST(SGOT) 10 U/L (15-37); Alanine Aminotransfer ALT/SGPT 13 U/L (16-61); Albumin, Serum 3.3 g/dL (3.2-5.0); Alkaline Phosphatase 100 U/L (45-117); BUN 39 mg/dL (7-18); BUN/Creat Ratio 31.5 RATIO (10-20); Calcium,Total 9.8 mg/dL (8.5-10.1); Carbon Dioxide > 45.0 mmol/L (21.0-32.0); Chloride 91 mmol/L (98-107); Creatinine, Serum 1.24 mg/dL (0.70-1.30); EST Glomerular Filtration Rate 60 mL/min (>60); Est Glom Filt Rate - Afr Amer 72 mL/min (>60); Estimated Creatinine Clearance 56.16 ml/min; Globulin 3.8 g/dL (2.2-4.2); Glucose 89 mg/dL (74-106); Potassium 5.2 mmol/L (3.5-5.1); Protein, Total 7.1 g/dL (6.4-8.2); Sodium Level 139 mmol/L (136-145)
--- NOTE | 2021-10-09 18:07 | NURSING ---
ICU HIMA RESP FAILURE, CO2 RETENTION, RESP ACIDOSIS
[2021-10-09 18:14] LABS: Absolute Lymphocyte Count 0.69 X10^3/uL (0.83-4.51); Absolute Neutrophil Count 6.2 X10^3/uL (2.0-7.7); Basophil# 0.01 X10^3/uL; Basophil% 0.1 % (0-1); Eosinophil# 0.23 X10^3/uL; Hemoglobin 11.9 g/dL (13.0-16.5); Lymphocyte # 0.69 X10^3/ul (0.83-4.51); Mean Corp Hgb Conc 29.8 g/dL (32-36); Mean Corpuscular Hgb 32.1 pg (27.0-32.0); Mean Corpuscular Volume 107.8 fL (80-94); Mean Platelet Vol. 12.2 fl (6.2-12.0); Monocyte% 6.6 % (0-10); NRBC Flagged by Analyzer 0 % (0-5); Neutrophil # 6.17 X10^3/uL (2.7-7.7); Neutrophil % 80.9 % (47-70); Platelet Count 161 K/mm3 (150-450); RBC Distribution Width CV 14.1 % (11.6-14.6); RBC Distribution Width SD 55.7 fl (35.1-43.9); Red Blood Count 3.71 M/mm3 (4.6-6.2); White Blood Count 7.6 K/mm3 (4.4-11.0)
--- NOTE | 2021-10-09 18:21 | NURSING ---
CV ICU 203
--- NOTE | 2021-10-09 18:28 | PCM.HP.STD ---
HPI - General General Date of Admission: 10/09/21 Date of Service: 10/09/21 Chief Complaint: Mental status change HPI Narrative MARCE ROMERO, is a 81 M who presented to the emergency department was coming hospital on 10/09/2021 for abnormal labs and mental status change. The patient evidently has a complex medical history and for the last 3 months has been residing at the [facility] in [place]. There is no one present with him upon my exam but evidently his daughter was present with him previously when the ER physician saw the patient and she indicated that the patient was seen in the emergency department about 2 weeks ago, which appears to be here and at that time he was discharged on levofloxacin. Evidently he had some increased somnolence and labs were drawn today at the nursing facility and they noted that his bicarbonate was elevated. This finding in combination with his somnolence he was sent to the emergency department. Per documentation from the ER physician he was more conversant at the time he was evaluated but he is currently now on BiPAP and will follow some commands but is fairly somnolent. In the emergency department he was afebrile through his course, his heart rates were stable in the 60s, his blood pressures were normal, his respiratory rate was mildly elevated 18-19. He was never found to be hypoxic and was actually 96% on 3 L nasal cannula but was transitioned to BiPAP after his blood gas was resulted. We also did get extra information from one of his daughters at a phone call after my evaluation of him in appears that he is supposed to wear BiPAP at night but is noncompliant with this on a regular basis. His vital signs in the emergency department were stable with no significant abnormalities other than mild tachypnea with respiratory rates from 18-19. His oxygen saturations were 96% on 3 L but given his somnolence and the results of his blood gas he was placed on BiPAP. His CBC shows what appears to be chronic stable macrocytic anemia with a normal white count but a left shift. His CMP shows a mildly elevated potassium at 5.2, a markedly elevated serum bicarbonate at greater than 45, a serum creatinine of 1.24 which appears to be his baseline, and normal LFTs. His EKG showed a paced rhythm with no ST-T wave changes consistent with ischemia. His chest x-ray showed markedly reduced lung volumes, likely due to decreased effort, with pacer/defibrillator in place but no acute cardiopulmonary process was noted. His ABG showed a pH of 7.27 with a PCO2 greater than 100. In the emergency department he was placed on BiPAP and request for admission was made. [facility] Medical History (Updated 10/09/21 @ 18:[address] 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 Chronic ulcer of right leg with fat layer exposed Congestive heart failure Diabetes mellitus with neuropathy Falls Heart failure with reduced ejection fraction Hyperlipemia Hypertension Hypokalemia Macrocytic anemia Metabolic alkalosis with respiratory acidosis Peripheral vascular disease Physical deconditioning Pleural effusion Pulmonary artery hypertension Retention of urine Retention of urine due to occlusion of Martin catheter SOB (shortness of breath) Tinea cruris UTI (urinary tract infection) Venous insufficiency Venous stasis dermatitis Home Medications furosemide [Lasix] 40 mg PO BID 01/17/18 [History Last Taken 12/20/18] polyethylene glycol 3350 17 g PO DAILY 01/17/18 [History Last Taken 12/19/18] potassium chloride [Klor-Con M20] 20 meq PO BID 01/17/18 [History Last Taken 12/21/18] tamsulosin 0.4 mg PO QHS 01/17/18 [History Last Taken 12/20/18] Eliquis 5 mg PO BID 12/21/18 [History Last Taken 12/21/18] atorvastatin 40 mg PO QHS 12/21/18 [History Last Taken 12/20/18] clotrimazole-betamethasone 1 applic TOPICAL DAILY PRN 12/21/18 [History Last Taken 12/20/18] glipizide 5 mg PO BIDAC 12/21/18 [History Last Taken 12/21/18] lisinopril [Zestril] 2.5 mg PO DAILY 12/21/18 [History Last Taken 12/21/18] metformin 500 mg PO BIDCM 12/21/18 [History Last Taken 12/21/18] spironolactone [Aldactone] 25 mg PO DAILY 12/21/18 [History Last Taken 12/21/18] terbinafine HCl 250 mg PO DAILY 12/21/18 [History Last Taken 12/21/18] Carafate 1 gm PO/SL BID 07/19/21 [History Last Taken Unknown] Colace 100 mg PO/SL PRN PRN 07/19/21 [History Last Taken Unknown] Humalog KwikPen Insulin 0 - 15 units OTHER ACHS 07/19/21 [History Last Taken Unknown] MagOx 400 mg PO/SL BID 07/19/21 [History Last Taken Unknown] Vitamin D3 4,000 unit PO/SL PCHS 07/19/21 [History Last Taken Unknown] acetaminophen 650 mg PO/SL PRN PRN 07/19/21 [History Last Taken Unknown] bisacodyl 10 mg NOTE PRN PRN 07/19/21 [History Last Taken Unknown] finasteride 5 mg PO/SL DAILY 07/19/21 [History Last Taken Unknown] metformin 500 mg PO/SL BID 07/19/21 [History Last Taken Unknown] pantoprazole [Protonix] 40 mg PO DAILY 07/19/21 [History Last Taken Unknown] tamsulosin 0.4 mg PO DAILY 07/19/21 [History Last Taken Unknown] levofloxacin 750 mg PO DAILY #7 tab 09/23/21 [Rx Last Taken Unknown] Allergy/AdvReac Type Severity Reaction Status Date / Time tolterodine [From Detrol] Allergy Unknown Verified 10/09/21 15:13 unable to obtain (Patient too somnolent) unable to obtain (Patient too somnolent) Social History Smoking Status: Never smoker ROS ROS Narrative Patient is very sleepy and currently on BiPAP and therefore unable to obtain significant review of systems however the patient does intermittently follow commands Review of Systems ROS Unobtainable: due to mental status Vital Signs Vital Signs Vital Signs: 10/09/21 15:08 10/09/21 15:14 10/09/21 16:30 Temperature 97.6 F L Temperature Source Oral Pulse Rate 61 60 Respiratory Rate 15 18 Respiratory Effort Normal Non-Labored Respiratory Pattern Normal Normal Blood Pressure Blood Pressure Mean Pulse Ox 94 97 Oxygen Delivery Method Nasal Cannula Oxygen Flow Rate (L/min) 2 Fraction of Inspired Oxygen (FIO2) 35 10/09/21 17:07 10/09/21 18:00 Temperature 97.6 F L Temperature Source Temporal Pulse Rate 60 60 Respiratory Rate 19 H 19 H Respiratory Effort Respiratory Pattern Blood Pressure 103/72 107/71 Blood Pressure Mean 82 83 Pulse Ox 96 97 Oxygen Delivery Method Bi-pap Bi-pap Oxygen Flow Rate (L/min) Fraction of Inspired Oxygen (FIO2) Weight Weight: 105.2 kg Body Mass Index (BMI) 29.7 Physical Exam Const Constitutional Narrative: Overweight older white male lying in bed on BiPAP, appears to be resting comfortably and rouses some to loud vocal stimulus/tactile stimulus, follows intermittent commands that are simple HEENT normocephalic and head/scalp atraumatic HEENT Narrative: Mallampati is 2-3, mucous membranes are dry, dentition is poor Eyes PERRL, EOMs intact bilaterally and conjunctivae normal Eyes Narrative: No scleral icterus Neck no lymphadenopathy, supple, no JVD and no carotid bruits Neck Narrative: Trachea midline, no thyroid enlargement Resp No normal respiratory effort, no retractions, no use of accessory muscles and clear to auscultation bilaterally Resp Narrative: Poor inspiratory effort with no adventitious sounds noted however breathing is fairly shallow Auscultation: Negative for crackles, rales, rhonchi or wheezes Cardio regular rate, S1 normal heart sound, S2 normal heart sound, no murmurs, no rub, no gallops, no clicks and no JVD Cardio Narrative: Paced with few ectopic beats GI normal to inspection, nondistended, normoactive bowel sounds, soft to palpation, non-tender and non-distended Extremity Extremity Narrative: Bilateral lower extremities are wrapped in Walker bandages, appears to have chronic bilateral lower extremity edema, pedal pulses are 1+ bilaterally, no cyanosis or clubbing Skin skin turgor normal, no jaundice, no petechiae and no mottling Skin Narrative: Lower extremity wrapped with Walker bandages Neuro Neuro Narrative: Very sleepy, awakens briefly to tactile and loud verbal stimulus, follows commands intermittently, does move all extremities spontaneously Psych Psych Narrative: Unable to examine due to mental status and use of BiPAP Results Lab / Micro Data Attestation: I reviewed the patient's lab results. Result Diagrams: 10/09/21 15:34 10/09/21 15:34 Labs: Laboratory Results - last 24 hr 10/09/21 15:34: Sodium 139, Potassium 5.2 H, Chloride 91 L, Carbon Dioxide > 45.0 H*, Anion Gap TNP, BUN 39 H, Creatinine 1.24, Estim Creat Clear Calc 56.16, Est GFR (MDRD) Af Amer 72, Est GFR (MDRD) Non-Af 60, BUN/Creatinine Ratio 31.5 H, Glucose 89, Calcium 9.8, Total Bilirubin 0.30, AST 10 L, ALT 13 L, Alkaline Phosphatase 100, Total Protein 7.1, Albumin 3.3, Globulin 3.8, Albumin/Globulin Ratio 0.9 10/09/21 15:34: WBC 7.6, RBC 3.71 L, Hgb 11.9 L, Hct 40.0, MCV 107.8 H, MCH 32.1 H, MCHC 29.8 L, RDW Std Deviation 55.7 H, RDW Coeff of Simón 14.1, Plt Count 161, MPV 12.2 H, Immature Gran % (Auto) 0.400, Neut % (Auto) 80.9 H, Lymph % (Auto) 9.0 L, Jack % (Auto) 6.6, Eos % (Auto) 3.0, Baso % (Auto) 0.1, Absolute Neuts (auto) 6.2, Absolute Lymphs (auto) 0.69 L, Nucleated RBC % 0 Radiology Impression Chest X-Ray 10/09/21 15:55 IMPRESSION: Low lung volumes. No acute findings. Electronically Signed: Binta Briceno MD at 16:26 EST Reading Location ID and State: [id number] / Tel , Service support , Assessment & Plan Assessment/Plan (1) Acute and chronic respiratory failure with hypercapnia: (2) Hyperkalemia: (3) Respiratory acidosis: PLAN: Acute on chronic hypercapnic respiratory failure -Etiology is currently unclear--> patient with history of recent pneumonia/HFrEF/pulmonary hypertension-severe -Based on his lab work it appears that he probably has a chronic respiratory acidosis as his bicarbonate level is extremely high -Last echocardiogram in our records was from 2019 and at that time his EF was 30% with a dilated left ventricle and global LV dysfunction, mild concentric LVH, biatrial enlargement and a right ventricular systolic pressure of 70 mmHg -Blood and sputum cultures are pending -Check UA and if appears infected check urine culture -Check strep pneumo and Legionella antigens -Check Covid status -We will try to obtain records from recent hospitalization -If no echocardiogram was performed we will consider rechecking -Start empiric antibiotics with Vanco and Zosyn -Chest x-ray shows no acute process however lung volumes are very low and inspiratory effort is poor -Continue BiPAP and wean as able -We will keep n.p.o. except for a few medications and allow if patient is awake enough to tolerate -Evidently the patient is supposed to wear BiPAP at night but he does not like to do so and therefore has not been -Is possible that this is the precipitating etiology -Consult Pulm/CCM -I would recommend if the patient is going to continue to be noncompliant with his BiPAP that his goals of care should shift to DNR CC status because I suspect this will continue to be problematic for him based on his laboratory data Hyperkalemia -This is likely due to his acidosis and should improve with correction of his respiratory acidosis -Repeat BMP in a.m. -Hold Aldactone -Potassium supplementation Acute on chronic respiratory acidosis -Suspect this is related to his noncompliance with BiPAP -Other work-up is in progress as above Chronic macrocytic anemia -Hemoglobin is stable -Continue to monitor CKD stage II -Serum creatinine stable -Holding diuretics at this time -Would have a low threshold for reinitiating diuretics however with history of heart failure -Avoid nephrotoxins as able -Repeat BMP in a.m. 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 for now -SSI every 6 hours -Accu-Cheks every 6 hours GERD -Hold Carafate -Hold Protonix BPH -Hold finasteride -Hold tamoxifen -Martin in place -Would restart oral agents prior to pulling Martin Hyperlipidemia -Restart atorvastatin once mental status is improved Obesity -Recommend weight loss DVT prophylaxis -Continue home Eliquis CODE STATUS -Full code Charges/Coding Visit Charges Inpatient E&M: 44305 Init Hosp L3
[2021-10-09 19:34] LABS: Lactic Acid 2.8 mmol/L (0.4-1.9)
--- NOTE | 2021-10-09 22:30 | NURSING ---
Pt continually trying to rip bipap mask off, desatting to 50s. Pt very uncooperative and agitated despite nursing attempting to re-orient and educate. Pt is intermittently confused. Sometimes answering questions appropriately, very drowsy. Pt yelling out take it off! just let me ! Emotional support provided. Code status verified with nurse at [facility] and pt's daughter Bethany. Bethany states pt is a full code and wants everything done to sustain life and care for pt. Notified Dr. Torres of situation. Order to start precedex gtt.
[2021-10-09 22:51] LABS: Bacteria 0 SEEN /hpf (None Seen); Mucous, Urine 0 SEEN /hpf (<or=2+); Squamous Epithelial Cells - UA 0 SEEN /hpf (0-5)
[2021-10-09 22:53] LABS: Color, Urine Yellow (Yellow); Glucose, Dipstick Normal (Normal); Ketone-Dipstick 50 mg/dl (Negative); Leukocyte Esterase-Dipstick 100 /ul (Negative); Nitrite-Dipstick Negative (Negative); Occult Blood-Urine 150 /ul (Negative); Protein-Dipstick 30 mg/dl (Negative); Urine Bilirubin Dipstick Negative (Negative); Urine Clarity Clear (Clear); Urine Urobilinogen Normal (Normal)
[2021-10-09] MEDS: 0.9% Saline Lock 10 ML Syringe IV (22:53)
[2021-10-09 22:59] LABS: Red Blood Cells-Urine 5-10 SEEN /hpf (0-5); White Blood Cells 0-5 SEEN /hpf (0-5)
--- NOTE | 2021-10-09 23:00 | PCM.HOSP.N ---
Hospitalist Note Patient with increased agitation, not keeping BIPAP in place. Noted to staff preference to pass and avoid any further interventions but SNF notes FULL code on record and daughter contacted and confirmed. Will need to be further investigated once assure his mental status completely appropriate. Will place on precedex.
[2021-10-09 23:01] LABS: Hyaline Cast 0-5 SEEN /lpf (0-5)
[2021-10-09 23:12] LABS: Reflex Lactate? Y
[2021-10-09 23:26] LABS: Bedside Glucose 120 mg/dL (70-110)
[2021-10-10] VITALS (31 sets, daily range): BP systolic 94–154; BP diastolic 63–122; PULSE 60–71; RESP 12–29; TEMP 35.9–36.8; O2SAT 92–99
[2021-10-10 00:11] LABS: M R Staph aureus DNA By PCR Negative (Negative); Probe Check PASS; Specimen Processing Control PASS
[2021-10-10 01:17] LABS: Lactic Acid 2.6 mmol/L (0.4-1.9)
[2021-10-10 04:26] LABS: Absolute Neutrophil Count 7.1 X10^3/uL (2.0-7.7); Basophil# 0.02 X10^3/uL; Basophil% 0.2 % (0-1); Eosinophil# 0.11 X10^3/uL; Eosinophils% 1.3 % (0-5); Hematocrit 34.1 % (40-54); Hemoglobin 10.7 g/dL (13.0-16.5); Mean Corp Hgb Conc 31.4 g/dL (32-36); Mean Corpuscular Hgb 32.2 pg (27.0-32.0); Mean Corpuscular Volume 102.7 fL (80-94); Mean Platelet Vol. 11.1 fl (6.2-12.0); Monocyte# 0.56 X10^3/uL; Monocyte% 6.7 % (0-10); NRBC Flagged by Analyzer 0 % (0-5); Neutrophil # 7.07 X10^3/uL (2.7-7.7); Neutrophil % 85.3 % (47-70); POSITIVE DIFFERENTIAL YES; Platelet Count 138 K/mm3 (150-450); RBC Distribution Width CV 14.1 % (11.6-14.6); RBC Distribution Width SD 52.6 fl (35.1-43.9); Red Blood Count 3.32 M/mm3 (4.6-6.2); White Blood Count 8.3 K/mm3 (4.4-11.0)
--- NOTE | 2021-10-10 04:28 | PCM.RX.CS ---
Consult Pharmacy has been consulted to manage selected antiobiotic: Vancomycin Type of Consult: New start Microbiology: Microbiology 10/09/21 22:40 Urine Catheter - Martin Legionella Antigen - Final 10/09/21 22:40 Urine Catheter - Martin Streptococcus pneumoniae Antigen (M - Final 10/09/21 19:14 Nasal Secretion SARS-CoV-2 Antigen (Rapid) - Final Goal Trough: 15-20 mcg/mL Pharmacy Plan for Drug Dosing: Pharmacy Service will continue to monitor and adjust dosing as required. Medications Vancomycin HCl 1,250 mg/ (Sodium Chloride) 275 mls @ 167 mls/hr IV Q12H YONI Discontinued Medications Vancomycin HCl 1,500 mg/ (Sodium Chloride) 530 mls @ 250 mls/hr IV X1 ONE Stop: 10/09/21 23:07 Last Admin: 10/10/21 01:25 Dose: Infused Documented by: Follow-Up Labs: Trough Vancomycin Labs to be done on [date and time ordered]: 10/11 @ 1037
[2021-10-10 04:35] LABS: Differential Indicated SCAN CRITERIA MET
[2021-10-10] MEDS: TITRATION PARAMETER CHANGE 1 EACH IV (04:41)
[2021-10-10 04:53] LABS: AST(SGOT) 10 U/L (15-37); Alanine Aminotransfer ALT/SGPT 12 U/L (16-61); Alkaline Phosphatase 87 U/L (45-117); Anion Gap 4 (5-15); BUN 45 mg/dL (7-18); BUN/Creat Ratio 34.6 RATIO (10-20); Calcium,Total 9.4 mg/dL (8.5-10.1); Chloride 92 mmol/L (98-107); EST Glomerular Filtration Rate 57 mL/min (>60); Est Glom Filt Rate - Afr Amer 68 mL/min (>60); Estimated Creatinine Clearance 53.57 ml/min; Globulin 3.1 g/dL (2.2-4.2); Glucose 139 mg/dL (74-106); Magnesium 2.1 mg/dL (1.6-2.6); Phosphorus 2.7 mg/dL (2.5-4.9); Potassium 5.8 mmol/L (3.5-5.1); Protein, Total 6.1 g/dL (6.4-8.2); Sodium Level 139 mmol/L (136-145); Thyroid Stim Hormone (TSH) 0.87 uIU/mL (0.358-3.74)
[2021-10-10] MEDS: Insulin Lispro 100 UNIT/ML INSULN.PEN SC ×3 (05:43→22:40)
[2021-10-10 05:56] LABS: Bedside Glucose 158 mg/dL (70-110)
[2021-10-10] MEDS: Insulin Lispro 10 UNIT in Syringe 0 ML 6 UNIT IV (06:19)
[2021-10-10] MEDS: Dextrose 10%-Water 250 ML 999 ML IV (06:20)
--- NOTE | 2021-10-10 07:14 | PN.HOSP_ITS ---
Subjective Subjective Patient is a 81-year-old gentleman with multiple comorbidities admitted with altered mental status. An assessment of acute metabolic encephalopathy secondary to acute hypoxic and hypercapnic respiratory failure made. Admitted to the intensive care unit for subsequent management Objective Data Objective Data Vital Signs: Vital Signs Temp Pulse Resp BP Pulse Ox 97 F L 60 26 H 98/66 96 10/10/21 04:00 10/10/21 07:00 10/10/21 07:00 10/10/21 07:00 10/10/21 07:00 Oxygen Flow Rate (L/min) 2 Oxygen Delivery Method Bi-pap Weight: 98.8 kg Body Mass Index (BMI) 27.6 Intake & Output: Intake and Output for Last 24 Hours 10/08/21 10/09/21 10/10/21 23:59 23:59 23:59 Intake Total 15.89 / 21.39 1031.76 / 1031.76 Output Total 550 / 550 425 / 425 Balance -534.11 / -528.61 606.76 / 606.76 Lab / Micro Data Result Diagrams: 10/10/21 04:00 10/10/21 04:00 Labs: Laboratory Results - last 24 hr 10/09/21 15:34: Sodium 139, Potassium 5.2 H, Chloride 91 L, Carbon Dioxide > 45.0 H*, Anion Gap TNP, BUN 39 H, Creatinine 1.24, Estim Creat Clear Calc 56.16, Est GFR (MDRD) Af Amer 72, Est GFR (MDRD) Non-Af 60, BUN/Creatinine Ratio 31.5 H , Glucose 89, Calcium 9.8, Total Bilirubin 0.30, AST 10 L, ALT 13 L, Alkaline Phosphatase 100, Total Protein 7.1, Albumin 3.3, Globulin 3.8, Albumin/Globulin Ratio 0.9 10/09/21 15:34: WBC 7.6, RBC 3.71 L, Hgb 11.9 L, Hct 40.0, MCV 107.8 H, MCH 32.1 H, MCHC 29.8 L, RDW Std Deviation 55.7 H, RDW Coeff of Simón 14.1, Plt Count 161, MPV 12.2 H, Immature Gran % (Auto) 0.400, Neut % (Auto) 80.9 H, Lymph % (Auto) 9.0 L, [place] % (Auto) 6.6, Eos % (Auto) 3.0, Baso % (Auto) 0.1, Absolute Neuts (auto) 6.2, Absolute Lymphs (auto) 0.69 L, Nucleated RBC % 0 10/09/21 18:54: Lactic Acid 2.8 H* 10/09/21 20:30: MRSA (PCR) Negative 10/09/21 22:40: Urine Color Yellow, Urine Clarity Clear, Urine pH 8.0, Ur Specific [place] 1.010, Urine Protein 30 H, Urine Glucose (UA) Normal, Urine Ketones 50 H, Urine Occult Blood 150 H, Urine Nitrite Negative, Urine Bilirubin Negative, Urine Urobilinogen Normal, Ur Leukocyte Esterase 100 H, Urine RBC 5-10 SEEN, Urine WBC 0-5 SEEN, Ur Squamous Epith Cells 0 SEEN, Urine Bacteria 0 SEEN, Hyaline Casts 0-5 SEEN, Urine Mucus 0 SEEN 10/09/21 23:04: POC Glucose 120 H 10/10/21 00:00: Lactic Acid 2.6 H* 10/10/21 04:00: WBC 8.3, RBC 3.32 L, Hgb 10.7 L, Hct 34.1 L, MCV 102.7 H, MCH 32.2 H, MCHC 31.4 L D, RDW Std Deviation 52.6 H, RDW Coeff of Simón 14.1, Plt Count 138 L, MPV 11.1, Immature Gran % (Auto) 0.500, Neut % (Auto) 85.3 H, Lymph % (Auto) 6.0 L, [place] % (Auto) 6.7, Eos % (Auto) 1.3, Baso % (Auto) 0.2, Absolute Neuts (auto) 7.1, Absolute Lymphs (auto) 0.50 L, Nucleated RBC % 0 10/10/21 04:00: Sodium 139, Potassium 5.8 H, Chloride 92 L, Carbon Dioxide 43.0 H, Anion Gap 4 L, BUN 45 H, Creatinine 1.30, Estim Creat Clear Calc 53.57, Est GFR (MDRD) Af Amer 68, Est GFR (MDRD) Non-Af 57 L, BUN/Creatinine Ratio 34.6 H, Glucose 139 H, Calcium 9.4, Phosphorus 2.7, Magnesium 2.1, Total Bilirubin 0.60, AST 10 L, ALT 12 L, Alkaline Phosphatase 87, Total Protein 6.1 L, Albumin 3.0 L, Globulin 3.1, Albumin/Globulin Ratio 1.0, TSH 0.87 10/10/21 05:42: POC Glucose 158 H Micro: Microbiology 10/09/21 22:40 Urine Catheter - Martin Legionella Antigen - Final 10/09/21 22:40 Urine Catheter - Martin Streptococcus pneumoniae Antigen (M - Final 10/09/21 19:14 Nasal Secretion SARS-CoV-2 Antigen (Rapid) - Final Radiography Diagnostic Testing: Radiology Impression Chest X-Ray 10/09/21 15:55 IMPRESSION: Low lung volumes. No acute findings. Electronically Signed: Binta Briceno MD at 16:26 EST , Physical Exam Narrative GENERAL: Patient on BiPAP HEENT: Atraumatic; EYES; Anicteric, Normal Conjunctiva NECK; supple, normal thyroid, RESPIRATORY: Diminished to auscultation CARDIOVASCULAR: Regular S1 S2, GI: soft, normoactive bowel sounds, : No Renal angle tenderness; EXTREMITIES: edema, no clubbing, MUSCULOSKELETAL: no muscle waisting NEURO: Unable to assess due to encephalopathy SKIN: No Rash PSYCH; able to assess Assessment & Plan Assessment/Plan (1) Acute and chronic respiratory failure with hypercapnia: (2) Hyperkalemia: (3) Respiratory acidosis: PLAN: Patient is a 81-year-old gentleman with multiple comorbidities ad mitted with altered mental status. An assessment of acute metabolic encephalopathy secondary to acute hypoxic and hypercapnic respiratory failure made. Admitted to the intensive care unit for subsequent management 1. Acute metabolic encephalopathy ?Secondary to acute on chronic hypoxic and hypercapnic respiratory failure. Patient was placed on noninvasive ventilation BiPAP and admitted to the intensive care unit with consultation placed to pulmonary medicine 2. Acute on chronic hypercapnic and hypoxic respiratory failure ?Thought to be secondary to combination of patient recent pneumonia as well as congestive heart failure with reduced ejection fraction and CVA pulmonary hypertension. Patient was admitted to the intensive care unit placed on noninvasive ventilation with consultation placed to pulmonary medicine 3. Suspected pneumonia ?Patient started on broad-spectrum antibiotic therapy with Vanco and Zosyn sent cultures sent 4. Chronic congestive heart failure ?With reduced ejection fraction. Patient last echo obtained in 2019 demonstrated EF of 30% with dilated left ventricle with global LV diastolic dysfunction with RVSP of 70. Repeat echo ordered for reeval 5. Hyperkalemia ?Patient was on potassium sparing diuretics?Aldactone this has since been discontinued. Patient did receive D10 as well as insulin repeat potassium ordered for subsequent eval 6. BPH ?Patient is on tamsulosin do plan to continue 7. Diabetes mellitus type II -patient's oral hypoglycemics held. Placed on long acting insulin, Accu-Cheks a.c. and at bedtime and covered with sliding scale insulin 8. GERD ?Patient is on PPI 9. Paroxysmal A. fib ?Rate controlled and on systemic anticoagulation with Eliquis 10. Cardiomyopathy ?With a EF of 30% patient has a pacemaker/AICD in place 11. Severe pulmonary hypertension ?Management deferred to pulmonary medicine 11. Dyslipidemia ?Patient is on atorvastatin with plans to resume once patient mental status improves 12. DVT prophylaxis ?On Eliquis Charges/Coding Visit Charges Inpatient E&M: [id number] [facility] Hosp L3
--- NOTE | 2021-10-10 07:15 | EX.PCM.CONCC ---
Assessment & Plan Assessment/Plan (1) Acute and chronic respiratory failure with hypercapnia: PLAN: RECOMMENDATIONS: 1. Continue BiPAP support and obtain arterial blood gas. 2. Discontinue Precedex. 3. Continue antimicrobials for an additional 24 hours, while awaiting infectious work-up. 4. The patient is to remain n.p.o. for now. 5. Consider repeat echocardiogram. IMPRESSIONS: 1. Acute on chronic combined respiratory failure It is unclear as to whether the patient has any true underlying lung disease. However, he did have evidence of severe pulmonary hypertension on echocardiogram from 2018. The patient is supposed to utilize nocturnal BiPAP therapy but has been noncompliant with its use. Therefore, I do suspect that his altered mentation and subsequent need for noninvasive positive pressure ventilatory support is due in large part to medical noncompliance. Nevertheless, it is reasonable to continue empiric antimicrobials for 24 hours, while awaiting culture data. The patient will be continued on BiPAP support for now. Will obtain arterial blood gas this morning. Precedex is to be discontinued, given the patient's level of sedation. 2. Encephalopathy Likely hypercarbic in etiology. Anticipate improvement with continued noninvasive positive pressure ventilatory support and following discontinuation of Precedex. If the patient does not improve clinically, will obtain head imaging. 3. Chronic kidney disease/chronic systolic heart failure/atrial fibrillation/diabetes mellitus Complicates care, management, recovery and prognosis. Continue sliding scale coverage for now. Continue Eliquis as ordered. TIME: 36 minutes of critical care time, independent of procedures, was spent addressing the patient's acute on chronic combined respiratory failure, encephalopathy, review of all data and collaboration with the care team. HPI Consult Data Date of Consult: 10/10/21 HPI Narrative Reason for Consultation: Encephalopathy, acute on chronic respiratory failure HPI Narrative: The patient is a 81-year-old male, with a history as outlined below, who presented to the emergency department from his [facility] facility with altered mentation. The patient was recently evaluated in the emergency department on September 23 with shortness of breath. He was sent back to his [facility] facility from the emergency department at that time with Levaquin over concerns for potential pneumonia. The patient has an apparent history of atrial fibrillation, nonischemic cardiomyopathy, and chronic systolic heart failure. Surface echocardiogram from December 2018 revealed an ejection fraction of 30% with global RV systolic dysfunction and a right ventricular systolic pressure estimated to be 70 mmHg. On presentation to the emergency department, the patient was noted to be afebrile hemodynamically stable. The patient was initially placed on 2 L/min of oxygen, but was ultimately transitioned to BiPAP therapy. Initial laboratory evaluation revealed no evidence of a leukocytosis. Chemistry profile was notable for a potassium of 5.2, chloride of 91, bicarbonate of greater than 45 and creatinine of 1.24. Lactate was elevated at 2.8. MRSA screen was negative. Rapid coronavirus antigen testing was negative. Chest x-ray showed no acute cardiopulmonary process. The patient was subsequently transferred to the medical intensive care unit for further management. 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 Chronic ulcer of right leg with fat layer exposed Congestive heart failure Congestive heart failure (CHF) CPAP (continuous positive airway pressure) dependence Diabetes Diabetes mellitus with neuropathy Falls GI bleed Heart failure with reduced ejection fraction Hyperlipemia Hypertension Hypertension Hypokalemia ICD (implantable cardioverter-defibrillator) in place Macrocytic anemia Metabolic alkalosis with respiratory acidosis Morbid (severe) obesity due to excess calories Morbid obesity Myocardial infarct Pacemaker Peripheral vascular disease Physical deconditioning Pleural effusion Pulmonary artery hypertension Respiratory failure Retention of urine Retention of urine due to occlusion of Martin catheter Sleep apnea SOB (shortness of breath) Tinea cruris UTI (urinary tract infection) Venous (peripheral) insufficiency Venous insufficiency Venous stasis dermatitis Home Medications furosemide [Lasix] 40 mg PO BID 01/17/18 [History Last Taken 10/09/21] polyethylene glycol 3350 17 g PO DAILY 01/17/18 [History Last Taken 10/09/21] tamsulosin 0.8 mg PO QHS 01/17/18 [History Last Taken 10/08/21] Eliquis 5 mg PO BID 12/21/18 [History Last Taken 10/09/21] atorvastatin 40 mg PO QHS 12/21/18 [History Last Taken 10/08/21] glipizide 5 mg PO BIDAC 12/21/18 [History Last Taken 10/09/21] metformin 500 mg PO QHS 12/21/18 [History Last Taken 10/08/21] spironolactone [Aldactone] 12.5 mg PO DAILY 12/21/18 [History Last Taken 10/09/21] pantoprazole [Protonix] 40 mg PO BID 07/19/21 [History Last Taken Unknown] albuterol sulfate 2.5 mg INHALATION TID 10/09/21 [History Last Taken 10/09/21] cholecalciferol (vitamin D3) [Vitamin D3] 100 mcg PO DAILY 10/09/21 [History Last Taken 10/09/21] docusate sodium [Colace] 200 mg PO DAILY 10/09/21 [History Last Taken 10/09/21] finasteride 5 mg PO DAILY 10/09/21 [History Last Taken 10/09/21] insulin lispro [Humalog KwikPen Insulin] See Protocol SUBCUT TIDCM 10/09/21 [History Last Taken Unknown] loratadine 10 mg PO DAILY 10/09/21 [History Last Taken 10/09/21] magnesium oxide [MagOx] 400 mg PO BID 10/09/21 [History Last Taken 10/09/21] metformin 1,000 mg PO DAILY 10/09/21 [History Last Taken 10/09/21] sennosides [senna] 8.6 mg PO QHS 10/09/21 [History Last Taken 10/08/21] tramadol 50 mg PO Q6H PRN 10/09/21 [History Last Taken 10/08/21] Allergy/AdvReac Type Severity Reaction Status Date / Time tolterodine [From Detrol] Allergy Unknown Verified 10/09/21 15:13 Family History unable to obtain Surgical History (Updated 10/09/21 @ 19:08 by Shital Muniz) History of cholecystectomy Surgical History unable to obtain Social History Smoking Status: Never smoker ROS Review of Systems ROS Unobtainable: due to encephalopathy and due to mental status Physical Exam Const no apparent distress General Appearance: lethargic and on BiPAP HEENT normocephalic and head/scalp atraumatic Teeth and Gingiva: poor dentition Eyes PERRL Neck supple General: trachea midline Chest inspection of chest normal Resp Auscultation: diminished lung sounds; Negative for rales, rhonchi or wheezes Cardio regular rate, S1 normal heart sound and S2 normal heart sound GI normal to inspection, nondistended, normoactive bowel sounds Extremity General Extremity: edema bilateral lower extremity Skin Skin Narrative: Wrapped lower extremities. Neuro Neuro Narrative: The patient is lethargic and not currently responsive to verbal stimulation. Psych Mood & Affect: flat affect Lab / Micro Data Result Diagrams: 10/10/21 04:00 10/10/21 09:35 Labs: Laboratory Results - last 24 hr 10/09/21 15:34: Sodium 139, Potassium 5.2 H, Chloride 91 L, Carbon Dioxide > 45.0 H*, Anion Gap TNP, BUN 39 H, Creatinine 1.24, Estim Creat Clear Calc 56.16, Est GFR (MDRD) Af Amer 72, Est GFR (MDRD) Non-Af 60, BUN/Creatinine Ratio 31.5 H, Glucose 89, Calcium 9.8, Total Bilirubin 0.30, AST 10 L, ALT 13 L, Alkaline Phosphatase 100, Total Protein 7.1, Albumin 3.3, Globulin 3.8, Albumin/Globulin Ratio 0.9 10/09/21 15:34: WBC 7.6, RBC 3.71 L, Hgb 11.9 L, Hct 40.0, MCV 107.8 H, MCH 32.1 H, MCHC 29.8 L, RDW Std Deviation 55.7 H, RDW Coeff of Simón 14.1, Plt Count 161, MPV 12.2 H, Immature Gran % (Auto) 0.400, Neut % (Auto) 80.9 H, Lymph % (Auto) 9.0 L, [place] % (Auto) 6.6, Eos % (Auto) 3.0, Baso % (Auto) 0.1, Absolute Neuts (auto) 6.2, Absolute Lymphs (auto) 0.69 L, Nucleated RBC % 0 10/09/21 18:54: Lactic Acid 2.8 H* 10/09/21 20:30: MRSA (PCR) Negative 10/09/21 22:40: Urine Color Yellow, Urine Clarity Clear, Urine pH 8.0, Ur Specific [place] 1.010, Urine Protein 30 H, Urine Glucose (UA) Normal, Urine Ketones 50 H, Urine Occult Blood 150 H, Urine Nitrite Negative, Urine Bilirubin Negative, Urine Urobilinogen Normal, Ur Leukocyte Esterase 100 H, Urine RBC 5-10 SEEN, Urine WBC 0-5 SEEN, Ur Squamous Epith Cells 0 SEEN, Urine Bacteria 0 SEEN, Hyaline Casts 0-5 SEEN, Urine Mucus 0 SEEN 10/09/21 23:04: POC Glucose 120 H 10/10/21 00:00: Lactic Acid 2.6 H* 10/10/21 04:00: WBC 8.3, RBC 3.32 L, Hgb 10.7 L, Hct 34.1 L, MCV 102.7 H, MCH 32.2 H, MCHC 31.4 L D, RDW Std Deviation 52.6 H, RDW Coeff of Simón 14.1, Plt Count 138 L, MPV 11.1, Immature Gran % (Auto) 0.500, Neut % (Auto) 85.3 H, Lymph % (Auto) 6.0 L, [place] % (Auto) 6.7, Eos % (Auto) 1.3, Baso % (Auto) 0.2, Absolute Neuts (auto) 7.1, Absolute Lymphs (auto) 0.50 L, Nucleated RBC % 0 10/10/21 04:00: Sodium 139, Potassium 5.8 H, Chloride 92 L, Carbon Dioxide 43.0 H, Anion Gap 4 L, BUN 45 H, Creatinine 1.30, Estim Creat Clear Calc 53.57, Est GFR (MDRD) Af Amer 68, Est GFR (MDRD) Non-Af 57 L, BUN/Creatinine Ratio 34.6 H, Glucose 139 H, Calcium 9.4, Phosphorus 2.7, Magnesium 2.1, Total Bilirubin 0.60, AST 10 L, ALT 12 L, Alkaline Phosphatase 87, Total Protein 6.1 L, Albumin 3.0 L, Globulin 3.1, Albumin/Globulin Ratio 1.0, TSH 0.87 10/10/21 05:42: POC Glucose 158 H Micro: Microbiology 10/09/21 22:40 Urine Catheter - Martin Legionella Antigen - Final 10/09/21 22:40 Urine Catheter - Martin Streptococcus pneumoniae Antigen (M - Final 10/09/21 19:14 Nasal Secretion SARS-CoV-2 Antigen (Rapid) - Final Radiology Impression Chest X-Ray 10/09/21 15:55 IMPRESSION: Low lung volumes. No acute findings. Electronically Signed: Binta Briceno MD at 16:26 EST Reading Location ID and State: [id number] / Tel , Service support , Charges/Coding Procedures Hospitalists Procedures: [id number]
[2021-10-10 08:16] LABS: Allen Test Positive; Base Excess 21 mmol/L (-2 to +2); Bicarbonate 48.2 mmol/L (22-26); Blood Gas Specimen Type ART; O2 Delivery Device Cannula; PO2 87 mmHG (75-100); SITE R Radial; SO2 94 % (95-99); Total Carbon Dioxide > 50 mmol/L; pCO2 103.1 mmHg (35-45); pH 7.28 (7.35-7.45)
[2021-10-10 09:05] LABS: Allen Test Positive; Base Excess 20 mmol/L (-2 to +2); Bicarbonate 44.1 mmol/L (22-26); Blood Gas Specimen Type ART; FI02 25; O2 Delivery Device BiPAP; PEEP 8; PO2 55 mmHG (75-100); SITE R Radial; SO2 87 % (95-99); Total Carbon Dioxide 46 mmol/L; pCO2 67.7 mmHg (35-45); pH 7.42 (7.35-7.45)
--- NOTE | 2021-10-10 09:39 | ECHOCS_ITS ---
Reason For Study: CHF Procedure This was a 2D Doppler, Color Flow transthoracic echocardiogram. The study was technically limited. The study was technically difficult. Due to bodyhabitus and unable to reposition for exam. Contrast injection was performed. Exam performed portable in ICU/CCU. Left Ventricle Normal LV size. The estimated ejection fraction is 55 %. Diastolic function is indeterminate. No regional wall motion abnormalities noted. Right Ventricle Normal RV size. There is a pacemaker lead in the right ventricle. Normal systolic function. Atria The left atrium is mildly enlarged. Normal right atrium. ICD or pacer leads identified within the right atrium. No doppler evidence for ASD. Mitral Valve There is no mitral valve stenosis. No mitral valve insufficiency. Tricuspid Valve There is no tricuspid stenosis. Trivial tricuspid valve insufficiency. Pulmonary artery systolic pressure is 50 mmHg. Aortic Valve Trisinus/trileaflet aortic valve. Aortic sclerosis, no stenosis. There is no aortic stenosis. No aortic valve insufficiency. Pulmonic Valve There is no pulmonic valvular stenosis. Trivial pulmonic valve insufficiency. Great Vessels Normal aortic root. Pericardium/Pleural No pericardial effusion. Medication Diluted definity 3.0ml given slow IV push to enhance endocardial definition. MMode/2D Measurements & Calculations LVIDd: 4.7 cm IVSd: 1.2 cm Ao root diam: 4.1 cm LVIDs: 2.7 cm LVPWd: 1.2 cm FS: 41.2 % LAV(MOD-bp): 80.3 ml LA A4 area: 20.5 cm2 LA dimension(2D): 6.2 cm LAV(MOD-bp) Indexed: 35.7 ml/m2 LAV(MOD-sp2): 81.8 ml LAV(MOD-sp4): 67.5 ml Time Measurements MV dec time: 0.17 sec Doppler Measurements & Calculations MV E max sarwat: 58.2 cm/sec Ao V2 max: 134.1 cm/sec LV V1 max: 73.5 cm/sec MV A max sarwat: 28.6 cm/sec Ao max P.2 mmHg LV V1 max P.2 mmHg MV E/A: 2.0 PA V2 max: 92.5 cm/sec TR max sarwat: 311.5 cm/sec TR max P.8 mmHg ECHO/Echo Complete W/ Contrast Interpretation Summary The estimated ejection fraction is 55 %. Diastolic function is indeterminate. The left atrium is mildly enlarged. Ordering Physician: Timbo Perez Referring Physician: HENRRY DAVIS Performed By: Sherita Tomlin RDCS, RVT
--- NOTE | 2021-10-10 09:44 | CASEMGMT ---
Social Work SW attended ICU rounds. Per nursing, pt is not thinking clearly at this time. After rounds phone call placed to pt dgt Deanna. 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 PCP: Rhiannon Fajardo MD following physician at the [facility]. Pt dgt does not think pt had a PCP prior to admission to the [facility]. Specialists: Dr. Johan Schafer, partnership marketing manager Insurance: [facility] and [place] Living Will/HPOA: Pt does not have a living will or Health Care POA. Pt dgt stating that she would like pt to complete. SW explained that pt is not able to complete at this time due to cognitive concerns. If pt clears while here, SW can address with pt. LNOK: Bethany Galeano and Brittany Norwood, daughters Timbo Snider, son Living Arrangements: [facility], fpc Phone call to Evelina at the [facility] and they are able to accept pt back. Clinical update faxed. [facility] will request precert prior to return, but as pt has medicaid, precert will not hold up discharge and pt can return under Medicaid. PLAN: Return to [facility] at discharge. CARA Perales
[2021-10-10 09:56] LABS: Anion Gap 5 (5-15); BUN 49 mg/dL (7-18); BUN/Creat Ratio 29.7 RATIO (10-20); Calcium,Total 9.2 mg/dL (8.5-10.1); Chloride 93 mmol/L (98-107); Creatinine, Serum 1.65 mg/dL (0.70-1.30); EST Glomerular Filtration Rate 43 mL/min (>60); Est Glom Filt Rate - Afr Amer 52 mL/min (>60); Estimated Creatinine Clearance 42.21 ml/min; Glucose 157 mg/dL (74-106); Sodium Level 140 mmol/L (136-145)
--- NOTE | 2021-10-10 10:23 | CASEMGMT ---
Social Work SW spoke with nurse at [facility]. She states that approximately 2 weeks ago staff noted rising CO2 and facility physician ordered bipap for pt. Pt with much anxiety over the bipap and has been refusing to wear it at facility. Per nurse, Pt baseline is A&0 x3 and able to make own decisions. CARA Perales
[2021-10-10 11:15] LABS: Bedside Glucose 143 mg/dL (70-110)
--- NOTE | 2021-10-10 12:45 | NURSING ---
Patient woke up, agitated. Patient ripped off the bipap mask. Patient yelling for ice water. The patient then started saying he doesn't want any of this, does not want the bipap on. Vitals stable, oxygen stable on 6L NC. This RN informed patient that he needs to have a discussion with MD and daughter. MD and daughter called.
--- NOTE | 2021-10-10 16:42 | PCS.PANDOC ---
PANDEMIC DOCUMENTATION INITIATED: Date: 04/29/2021 Time: 190
[2021-10-10 17:56] LABS: Bedside Glucose 206 mg/dL (70-110)
[2021-10-10] MEDS: APIXABAN 5 MG TABLET PO (21:24)
[2021-10-10 22:45] LABS: Bedside Glucose 155 mg/dL (70-110)
[2021-10-11] VITALS (11 sets, daily range): BP systolic 106–124; BP diastolic 65–107; PULSE 58–63; RESP 12–32; TEMP 36.6–37.2; O2SAT 93–97
[2021-10-11] MEDS: 0.9% Saline Lock 10 ML Syringe IV (05:41)
[2021-10-11 06:32] LABS: Absolute Lymphocyte Count 0.82 X10^3/uL (0.83-4.51); Absolute Neutrophil Count 5.7 X10^3/uL (2.0-7.7); Basophil# 0.02 X10^3/uL; Basophil% 0.3 % (0-1); Eosinophil# 0.21 X10^3/uL; Eosinophils% 2.8 % (0-5); Hematocrit 32.9 % (40-54); Hemoglobin 10.1 g/dL (13.0-16.5); Lymphocyte # 0.82 X10^3/ul (0.83-4.51); Mean Corp Hgb Conc 30.7 g/dL (32-36); Mean Corpuscular Hgb 31.4 pg (27.0-32.0); Mean Corpuscular Volume 102.2 fL (80-94); Monocyte# 0.66 X10^3/uL; Monocyte% 8.8 % (0-10); NRBC Flagged by Analyzer 0 % (0-5); Neutrophil # 5.73 X10^3/uL (2.7-7.7); Neutrophil % 76.7 % (47-70); Platelet Count 151 K/mm3 (150-450); RBC Distribution Width CV 14.5 % (11.6-14.6); Red Blood Count 3.22 M/mm3 (4.6-6.2); White Blood Count 7.5 K/mm3 (4.4-11.0)
[2021-10-11 06:54] LABS: Anion Gap 4 (5-15); BUN 45 mg/dL (7-18); Calcium,Total 9.3 mg/dL (8.5-10.1); Chloride 92 mmol/L (98-107); Creatinine, Serum 1.55 mg/dL (0.70-1.30); EST Glomerular Filtration Rate 46 mL/min (>60); Est Glom Filt Rate - Afr Amer 56 mL/min (>60); Estimated Creatinine Clearance 44.93 ml/min; Glucose 125 mg/dL (74-106); Magnesium 2.2 mg/dL (1.6-2.6); Sodium Level 139 mmol/L (136-145)
[2021-10-11 06:56] LABS: Bedside Glucose 122 mg/dL (70-110)
--- NOTE | 2021-10-11 07:38 | PN.HOSP_ITS ---
Subjective Subjective Patient was weaned off BiPAP after discussion with patient regarding his CODE STATUS. He was subsequently transferred down from the ICU to progressive care unit. His blood cultures obtained on admission so far positive for staph epi?? Contaminant repeat pending. Patient complains of significant swelling involving the left upper extremity over 3 to 4 weeks duration. Subsequent evaluation with venous duplex ordered to rule out DVT Objective Data Objective Data Vital Signs: Vital Signs Temp Pulse Resp BP Pulse Ox 97.9 F 60 19 H 106/69 97 10/11/21 03:22 10/11/21 06:58 10/11/21 03:22 10/11/21 03:22 10/11/21 03:22 Oxygen Flow Rate (L/min) 2 Oxygen Delivery Method Bi-pap Weight: 97.3 kg Body Mass Index (BMI) 27.6 Intake & Output: Intake and Output for Last 24 Hours 10/09/21 10/10/21 10/11/21 23:59 23:59 23:59 Intake Total 15.89 / 21.39 1452.12 / 1752.12 550 / 550 Output Total 550 / 550 975 / 1375 850 / 850 Balance -534.11 / -528.61 477.12 / 377.12 -300 / -300 Lab / Micro Data Result Diagrams: 10/11/21 06:20 10/11/21 06:20 Labs: Laboratory Results - last 24 hr 10/10/21 09:35: Sodium 140, Potassium 5.0, Chloride 93 L, Carbon Dioxide 42.0 H, Anion Gap 5, BUN 49 H, Creatinine 1.65 H, Estim Creat Clear Calc 42.21, Est GFR (MDRD) Af Amer 52 L, Est GFR (MDRD) Non-Af 43 L, BUN/Creatinine Ratio 29.7 H, Glucose 157 H, Calcium 9.2 10/10/21 11:06: POC Glucose 143 H 10/10/21 17:32: POC Glucose 206 H 10/10/21 22:38: POC Glucose 155 H 10/11/21 06:20: WBC 7.5, RBC 3.22 L, Hgb 10.1 L, Hct 32.9 L, MCV 102.2 H, MCH 31.4, MCHC 30.7 L, RDW Std Deviation 54.0 H, RDW Coeff of Simón 14.5, Plt Count 151, MPV 11.0, Immature Gran % (Auto) 0.400, Neut % (Auto) 76.7 H, Lymph % (Auto) 11.0 L, [place] % (Auto) 8.8, Eos % (Auto) 2.8, Baso % (Auto) 0.3, Absolute Neuts (auto) 5.7, Absolute Lymphs (auto) 0.82 L, Nucleated RBC % 0 10/11/21 06:20: Sodium 139, Potassium 4.0, Chloride 92 L, Carbon Dioxide 43.0 H, Anion Gap 4 L, BUN 45 H, Creatinine 1.55 H, Estim Creat Clear Calc 44.93, Est GFR (MDRD) Af Amer 56 L, Est GFR (MDRD) Non-Af 46 L, BUN/Creatinine Ratio 29.0 H , Glucose 125 H, Calcium 9.3, Magnesium 2.2 10/11/21 06:40: POC Glucose 122 H Micro: Microbiology 10/09/21 18:54 Blood Culture (Wb) - Anticubital Right Bacteria Detection (PCR) - Preliminary Staphylococcus epidermidis 10/09/21 18:54 Blood Culture (Wb) - Anticubital Right Blood Culture - Preliminary 10/09/21 22:40 Urine Catheter - Martin Legionella Antigen - Final 10/09/21 22:40 Urine Catheter - Martin Streptococcus pneumoniae Antigen (M - Final 10/09/21 19:14 Nasal Secretion SARS-CoV-2 Antigen (Rapid) - Final ABG Data ABG results: ABG 10/09/21 10/10/21 15:57 08:58 Specimen Type ART ART Sample Site R Radial R Radial pH 7.28 L 7.42 Bicarbonate Actual 48.2 H 44.1 H Total CO2 > 50 46 Base Excess 21 H 20 H O2 Saturation 94 L 87 L O2 % 25 ABG pCO2 103.1 H* 67.7 H* ABG pO2 87 55 L Darius Test Positive Positive O2 Delivery Device Cannula BiPAP Liter Flow 3.0 POC PEEP 8 Crit Call To/Read Back Yes Yes Blood Gas Notified Whom BROWN Radiography Diagnostic Testing: Radiology Impression Echocardiogram 10/10/21 09:39 Interpretation Summary The estimated ejection fraction is 55 %. Diastolic function is indeterminate. The left atrium is mildly enlarged. Ordering Physician: Timbo Perez Referring Physician: HENRRY DAVIS Performed By: Sherita Tomlin, WILVER, RVT Physical Exam Narrative GENERAL: Cooperative HEENT: Atraumatic; EYES; Anicteric, Normal Conjunctiva NECK; supple, normal thyroid, RESPIRATORY: Diminished to auscultation CARDIOVASCULAR: Regular S1 S2, GI: soft, normoactive bowel sounds, : No Renal angle tenderness; EXTREMITIES: edema, no clubbing, MUSCULOSKELETAL: no muscle waisting NEURO: Unable to assess due to encephalopathy SKIN: No Rash PSYCH; able to assess Assessment & Plan Assessment/Plan (1) Acute and chronic respiratory failure with hypercapnia: (2) Hyperkalemia: (3) Respiratory acidosis: PLAN: Patient is a 81-year-old gentleman with multiple comorbidities admitted with altered mental status. An assessment of acute metabolic encephalopathy secondary to acute hypoxic and hypercapnic respiratory failure made. Admitted to the intensive care unit for subsequent management 1. Acute metabolic encephalopathy ?Secondary to acute on chronic hypoxic and hypercapnic respiratory failure. Patient was placed on noninvasive ventilation BiPAP and [facility] with consultation placed to pulmonary medicine -10/11/2021. Patient level of sensorium back to baseline. He did request for his CODE STATUS to be changed to DNR CC no intubation. BiPAP subsequently weaned off 2. Acute on chronic hypercapnic and hypoxic respiratory failure ?Thought to be secondary to combination of patient recent pneumonia as well as congestive heart failure with reduced ejection fraction and CVA pulmonary hypertension. Patient was admitted to the intensive care unit placed on noninvasive ventilation with consultation placed to pulmonary medicine -10/11/2021. Patient BiPAP was weaned off after his request subsequently transferred from ICU to PCU 3. Suspected pneumonia ?Patient started on broad-spectrum antibiotic therapy with Vanco and Zosyn sent cultures sent -10/11/2021; patient WBC count down to within normal limits. Blood cultures however positive for staph epi so far 1 bottle being positive. Cultures from second bottle pending. Do suspect contaminant 4. Chronic congestive heart failure ?With preserved ejection fraction. Patient last echo obtained in 2018 demonstrated EF of 30% with dilated left ventricle with global LV diastolic dysfunction with RVSP of 70. Repeat echo ordered for reeval -10/11/2021; patient repeat echo demonstrated EF of 55% consistent with congestive heart failure with preserved ejection fraction 5. Hyperkalemia ?Patient was on potassium sparing diuretics?Aldactone this has since been discontinued. Patient did receive D10 as well as insulin repeat potassium ordered for subsequent eval ?10/11/2021; potassium 4.0 6. BPH ?Patient is on tamsulosin do plan to continue 7. Diabetes mellitus type II -patient's oral hypoglycemics held. Placed on long acting insulin, Accu-Cheks a.c. and at bedtime and covered with sliding scale insulin 8. GERD ?Patient is on PPI 9. Paroxysmal A. fib ?Rate controlled and on systemic anticoagulation with Eliquis 10. Cardiomyopathy ?With a EF of 30% patient has a pacemaker/AICD in place 11. Severe pulmonary hypertension ?Management deferred to pulmonary medicine 11. Dyslipidemia ?Patient is on atorvastatin with plans to resume once patient mental status improves 12. DVT prophylaxis ?On Eliquis 13. Anemia - Secondary to chronic disorder monitoring H&H and transfuse if patient becomes symptomatic or hemoglobin falls below 7 14. Upper extremity swelling ?Venous duplex ordered to rule out DVT suspicion is however low for DVT given the fact that patient is on Eliquis Charges/Coding Visit Charges Inpatient E&M: 80983 [facility] Hosp L3
[2021-10-11] MEDS: APIXABAN 5 MG TABLET PO ×2 (08:13→21:33)
[2021-10-11] MEDS: Finasteride 5 MG Tablet PO (08:13)
--- NOTE | 2021-10-11 09:21 | VDUE_ITS ---
Reason For Study: Swelling Left Proximal Left jugular vein is spontaneous, widely patent, phasic, with no intraluminal echogenicity noted. Left subclavian vein is spontaneous, widely patent, phasic, with no intraluminal echogenicity noted. Left Arm Left axillary vein is spontaneous, patent, phasic, competent, compressible and demonstrates augmentation. Left brachial vein is compressible. Left cephalic vein is compressible. Left basilic vein is compressible. Left Lower Arm Left radial vein is compressible. Left ulnar vein is compressible. Patient Safety Prelim to Mery WHITTEN. VL/Venous Duplex US, Unilateral Interpretation Summary No evidence for acute deep venous thrombosis[left] upper extremity with patent and compressible cephalic and basilic veins. Ordering Physician: Timbo Perez Referring Physician: Rhiannon Fajardo Performed By: Radha Mo RVT ?
--- NOTE | 2021-10-11 09:33 | PCM.PN.INT ---
Assessment & Plan Assessment/Plan (1) Acute and chronic respiratory failure with hypercapnia: PLAN: RECOMMENDATIONS: 1. Wean supplemental oxygen to maintain saturations at or above 90%. 2. Antimicrobials can be discontinued from my perspective. 3. Continue BiPAP therapy on a nightly basis. 4. Encourage incentive spirometer use and mobilize patient as tolerated. 5. Will sign off from a critical care perspective. Please call with any additional questions. IMPRESSIONS: 1. Acute on chronic combined respiratory failure It is unclear as to whether the patient has any true underlying lung disease. However, he did have evidence of severe pulmonary hypertension on echocardiogram from 2019. The patient is supposed to utilize nocturnal BiPAP therapy but has been noncompliant with its use. Therefore, I do suspect that his altered mentation and subsequent need for noninvasive positive pressure ventilatory support is due in large part to medical noncompliance. Although antimicrobials were initially started, no infectious etiology was ever identified. Therefore, antimicrobials can be discontinued from my perspective. 2. Encephalopathy Resolved. Likely hypercarbic in etiology. Improvement was noted with use of noninvasive positive pressure ventilatory support. 3. Chronic kidney disease/chronic systolic heart failure/atrial fibrillation/diabetes mellitus Complicates care, management, recovery and prognosis. Continue sliding scale coverage for now. Continue Eliquis as ordered. This note was generated with Accredible dictation software. It may contain incorrect words, spelling, and punctuation that were not noted in checking the note before signing. Subjective Subjective The patient was seen and examined at the bedside this morning. Events from the last 24 hours have been reviewed. The patient is currently afebrile, hemodynamically stable and maintaining appropriate oxygen saturations on 2 L/min via nasal cannula. The patient remains on antimicrobials and Eliquis, per home regimen. Creatinine is stable at 1.5. Objective Data Objective Data The patient's most recent lab work, culture data and imaging studies have all been personally reviewed. Infectious work-up has been unrevealing to date. Vital Signs: Vital Signs Temp Pulse Resp BP Pulse Ox 98 F 60 18 123/107 H 96 10/11/21 08:17 10/11/21 08:17 10/11/21 08:17 10/11/21 08:17 10/11/21 08:17 Oxygen Flow Rate (L/min) 2 Oxygen Delivery Method Nasal Cannula Weight: 97.3 kg Body Mass Index (BMI) 27.6 Intake & Output: Intake and Output for Last 24 Hours 10/09/21 10/10/21 10/11/21 23:59 23:59 23:59 Intake Total 15.89 / 21.39 1452.12 / 1752.12 550 / 550 Output Total 550 / 550 975 / 1375 850 / 850 Balance -534.11 / -528.61 477.12 / 377.12 -300 / -300 Lab / Micro Data Attestation: I reviewed the patient's lab results. Result Diagrams: 10/11/21 06:20 10/11/21 06:20 Labs: Laboratory Results - last 24 hr 10/10/21 09:35: Sodium 140, Potassium 5.0, Chloride 93 L, Carbon Dioxide 42.0 H, Anion Gap 5, BUN 49 H, Creatinine 1.65 H, Estim Creat Clear Calc 42.21, Est GFR (MDRD) Af Amer 52 L, Est GFR (MDRD) Non-Af 43 L, BUN/Creatinine Ratio 29.7 H, Glucose 157 H, Calcium 9.2 10/10/21 11:06: POC Glucose 143 H 10/10/21 17:32: POC Glucose 206 H 10/10/21 22:38: POC Glucose 155 H 10/11/21 06:20: WBC 7.5, RBC 3.22 L, Hgb 10.1 L, Hct 32.9 L, MCV 102.2 H, MCH 31.4, MCHC 30.7 L, RDW Std Deviation 54.0 H, RDW Coeff of Simón 14.5, Plt Count 151, MPV 11.0, Immature Gran % (Auto) 0.400, Neut % (Auto) 76.7 H, Lymph % (Auto) 11.0 L, [place] % (Auto) 8.8, Eos % (Auto) 2.8, Baso % (Auto) 0.3, Absolute Neuts (auto) 5.7, Absolute Lymphs (auto) 0.82 L, Nucleated RBC % 0 10/11/21 06:20: Sodium 139, Potassium 4.0, Chloride 92 L, Carbon Dioxide 43.0 H, Anion Gap 4 L, BUN 45 H, Creatinine 1.55 H, Estim Creat Clear Calc 44.93, Est GFR (MDRD) Af Amer 56 L, Est GFR (MDRD) Non-Af 46 L, BUN/Creatinine Ratio 29.0 H, Glucose 125 H, Calcium 9.3, Magnesium 2.2 10/11/21 06:40: POC Glucose 122 H Micro: Microbiology 10/09/21 18:54 Blood Culture (Wb) - Anticubital Right Bacteria Detection (PCR) - Final Staphylococcus epidermidis 10/09/21 18:54 Blood Culture (Wb) - Anticubital Right Blood Culture - Preliminary 10/09/21 22:40 Urine Catheter - Martin Legionella Antigen - Final 10/09/21 22:40 Urine Catheter - Martin Streptococcus pneumoniae Antigen (M - Final 10/09/21 19:14 Nasal Secretion SARS-CoV-2 Antigen (Rapid) - Final Radiography Diagnostic Testing: Radiology Impression Echocardiogram 10/10/21 09:39 Interpretation Summary The estimated ejection fraction is 55 %. Diastolic function is indeterminate. The left atrium is mildly enlarged. Ordering Physician: Timbo Perez Referring Physician: HENRRY DAVIS Performed By: Sherita Tomlin, WILVER, RVT Physical Exam Const alert and no apparent distress General Appearance: cooperative HEENT normocephalic and head/scalp atraumatic Teeth and Gingiva: poor dentition Eyes PERRL, EOMs intact bilaterally and conjunctivae normal Neck supple General: trachea midline Chest inspection of chest normal Resp Auscultation: diminished lung sounds; Negative for rales, rhonchi or wheezes Cardio regular rate, S1 normal heart sound and S2 normal heart sound GI normal to inspection, nondistended, normoactive bowel sounds Extremity General Extremity: edema bilateral lower extremity Skin Skin Narrative: Wrapped lower extremities. Neuro CN's II-XII intact bilaterally and no focal motor deficits Psych Mood & Affect: flat affect Charges/Coding Visit Charges Inpatient E&M: 93953 Subs Hosp L2
[2021-10-11] MEDS: Insulin Lispro 100 UNIT/ML INSULN.PEN SC ×4 (11:52→21:36)
--- NOTE | 2021-10-11 11:56 | CASEMGMT ---
SW completed a Healthcare Power of Electric Welder Helper and a Healthcare Living Will with patient per his request. Copies were made and given to patient along with originals. A copy of each was also placed in patient's chart. Tess FERRO
[2021-10-11 12:10] LABS: Bedside Glucose 310 mg/dL (70-110)
--- NOTE | 2021-10-11 12:21 | CASEMGMT ---
JOANIE faxed updates to Evelina with Chemo. Tess Mayers INFORMATION CONSULTANT SPECIAL SERVICES AGENT
--- NOTE | 2021-10-11 13:20 | CASEMGMT ---
JOANIE called patient's daughter Bethany and let her know SW did complete Healthcare Power of Wood Technologist and Healthcare Living Will with patient. She thanked JOANIE for letting her know. Tess FERRO
--- NOTE | 2021-10-11 14:02 | EKG12_ITS ---
Test Reason : CP Blood Pressure : / mmHG Vent. Rate : 060 BPM Atrial Rate : 091 BPM P-R Int : 000 ms QRS Dur : 158 ms QT Int : 470 ms P-R-T Axes : 000 181 052 degrees QTc Int : 470 ms Suspect arm lead reversal, interpretation assumes no reversal PACING Non-specific intra-ventricular conduction block Abnormal ECG When compared with ECG of 23-SEP-2021 10:52, Wide QRS rhythm has replaced Electronic ventricular pacemaker Confirmed by MIGEL MILLIGAN, KAYLAN ([id number]), news editor FLORIN BERNARD ([id number]) on 10/16/2021 8:15:48 AM Referred By: RAYMOND Confirmed By:KAYLAN LAINEZ MD
--- NOTE | 2021-10-11 14:22 | RAD_ITS ---
STUDY: X-RAY CHEST REASON FOR EXAM: Male, 81 years old. Fever and cough TECHNIQUE: 2 AP portable views COMPARISON: 10/09/2021 FINDINGS: EKG leads overlie the chest. Stable appearance of a left subclavian pacemaker The lungs are underexpanded with superimposed interstitial and airspace opacifications There is no demonstrated pleural abnormality. Normal size heart. Normal mediastinum and molly. Normal visualized pulmonary arteries. There is atherosclerotic calcification of the aortic arch with tortuosity. There are diffuse degenerative changes of the visualized thoracic spine. There is degenerative osteoarthritis of the bilateral shoulders. There is no demonstrated abnormality of the visualized soft tissue structures of the upper abdomen. RAD/Chest 1 View (Portable) IMPRESSION: Underexpanded lungs with persistent interstitial and airspace opacifications in both lung bond. Electronically Signed: Oswaldo Lee MD at 16:29 EST ,
[2021-10-11] MEDS: Furosemide 100 MG/10 ML Vial 80 MG IV (15:00)
[2021-10-11 15:40] LABS: Troponin-I HS 109 pg/mL (3.0-78.0)
[2021-10-11 16:46] LABS: Bedside Glucose 334 mg/dL (70-110)
[2021-10-11 17:56] LABS: Troponin-I HS 112 pg/mL (3.0-78.0)
[2021-10-11 22:16] LABS: Bedside Glucose 242 mg/dL (70-110)
[2021-10-12] MEDS: Furosemide 40 MG Tablet PO ×2 (08:40→17:40)
[2021-10-12] MEDS: APIXABAN 5 MG TABLET PO ×2 (08:40→22:55)
[2021-10-12] MEDS: Finasteride 5 MG Tablet PO (08:55)
[2021-10-12] MEDS: BENZOCAINE/MENTHOL 1 LOZENGE MUCOUS MEM ×4 (10:20→16:45)
[2021-10-12] MEDS: Insulin Lispro 100 UNIT/ML INSULN.PEN SC ×5 (12:15→21:55)
--- NOTE | 2021-10-12 13:31 | PN_ITS ---
DATE OF SERVICE 10/12/2021 SUBJECTIVE-Patient was seen and examined today, he is currently on 2 L via nasal cannula presently, according to nursing, he refused BiPAP last night. Patient asked me today whether he could be discharged back to the intermediate on the BiPAP however, he states he just wants to hold up to his face and not wear it with straps. I told him that it would not do any good unless he were using it properly. OBJECTIVE: Temperature 97.7, GENERAL: cooperative, patient is alert and responds appropriately to simple questions HEENT: Atraumatic, normocephalic EYES; Anicteric, Normal Conjunctiva, PERRLA, EOMI NECK; supple, normal thyroid, RESPIRATORY: Diminished to auscultation CARDIOVASCULAR:? Regular S1 S2, GI:? soft, normoactive bowel sounds, : No Renal angle tenderness; EXTREMITIES:?Mild nonpitting edema is noted over the lower legs, no clubbing, no cyanosis MUSCULOSKELETAL:? no muscle wasting NEURO:? Awake;?no lateralizing signs. SKIN:? No Rash PSYCH; Flat?affect ASSESSMENT/PLAN Patient is a 81-year-old gentleman with multiple comorbidities admitted with altered mental status.? An assessment of acute metabolic encephalopathy secondary to acute hypoxic and hypercapnic respiratory failure made.? Admitted to the intensive care unit for subsequent management, he was subsequently transferred to PCU. 1.? Acute metabolic encephalopathy Secondary to acute on chronic hypoxic and hypercapnic respiratory failure.? Patient was placed on noninvasive ventilation BiPAP and admitted to the intensive care unit with consultation placed to pulmonary medicine -10/11/2021.? Patient level of sensorium back to baseline.? He did request for his CODE STATUS to be changed to DNR CC no intubation.? BiPAP subsequently weaned off 10/12/2021: Patient appears stable at this time on nasal cannula oxygen, I would like the patient to stay until tomorrow to see if there is a repeat of his mental status change 2.? Acute on chronic hypercapnic and hypoxic respiratory failure Thought to be secondary to combination of patient recent pneumonia as well as congestive heart failure with reduced ejection fraction and CVA pulmonary hypertension.? Patient was admitted to the intensive care unit placed on noninvasive ventilation with consultation placed to pulmonary medicine -10/11/2021.? Patient BiPAP was weaned off after his request subsequently transferred from ICU to PCU 10/12/2021: Patient is currently stable on nasal cannula oxygen, I would like to observe him tonight to see if there is a repeat of mental status change due to hypoxia/hypercapnia. Patient currently resides at the [facility]. 3.? Suspected pneumonia Patient started on broad-spectrum antibiotic therapy with Vanco and Zosyn sent cultures sent -10/11/2021; patient WBC count down to within normal limits.? Blood cultures however positive for staph epi so far 1 bottle being positive.? Cultures from second bottle pending.? Do suspect contaminant 10/12/2021: Patient is afebrile presently, patient's other blood culture was negative for growth at 48 hours, I have decided to stop the patient's antibiotics at this time. 4.? Chronic congestive heart failure With preserved ejection fraction.? Patient last echo obtained in 2018 demonstrated EF of 30% with dilated left ventricle with global LV diastolic dysfunction with RVSP of 70.? Repeat echo ordered for reeval -10/11/2021; patient repeat echo demonstrated EF of 55% consistent with congestive heart failure with preserved ejection fraction 5.? Hyperkalemia Patient was on potassium sparing diureticsAldactone this has since been discontinued.? Patient did receive D10 as well as insulin repeat potassium ordered for subsequent eval 10/11/2021; potassium 4.0 6.? BPH Patient is on tamsulosin do plan to continue 7.? Diabetes mellitus type II -patient's oral hypoglycemics held. Placed on long acting insulin, Accu-Cheks a.c. and at bedtime and covered with sliding scale insulin 8.? GERD Patient is on PPI 9.? Paroxysmal A. fib Rate controlled and on systemic anticoagulation with Eliquis 10.? Cardiomyopathy In the past-EF of 30% patient has a pacemaker/AICD in place, repeat echocardiogram showed improved EF of 55% 11.? Severe pulmonary hypertension Management deferred to pulmonary medicine 11.? Dyslipidemia Patient is on atorvastatin with plans to resume once patient mental status improves 12.? DVT prophylaxis On Eliquis 13.? Anemia - Secondary to chronic disorder monitoring H&H and transfuse if patient becomes symptomatic or hemoglobin falls below 7, hemoglobin today is above 10
[2021-10-12] MEDS: 0.9% Saline Lock 10 ML Syringe IV (15:30)
[2021-10-12 18:52] LABS: BUN 40 mg/dL (7-18); BUN/Creat Ratio 29.9 RATIO (10-20); Calcium,Total 9.4 mg/dL (8.5-10.1); Carbon Dioxide > 45.0 mmol/L (21.0-32.0); Chloride 94 mmol/L (98-107); Creatinine, Serum 1.34 mg/dL (0.70-1.30); EST Glomerular Filtration Rate 55 mL/min (>60); Est Glom Filt Rate - Afr Amer 66 mL/min (>60); Estimated Creatinine Clearance 51.97 ml/min; Glucose 130 mg/dL (74-106); Potassium 3.5 mmol/L (3.5-5.1); Sodium Level 143 mmol/L (136-145)
[2021-10-12 19:24] LABS: Bedside Glucose 126 mg/dL (70-110)
[2021-10-12 19:25] LABS: Bedside Glucose 342 mg/dL (70-110)
[2021-10-12 19:25] LABS: Bedside Glucose 229 mg/dL (70-110)
[2021-10-12 22:05] LABS: Bedside Glucose 188 mg/dL (70-110)
[2021-10-12 22:40] LABS: Absolute Neutrophil Count 4.9 X10^3/uL (2.0-7.7); Basophil# 0.02 X10^3/uL; Basophil% 0.3 % (0-1); Eosinophil# 0.27 X10^3/uL; Hematocrit 32.8 % (40-54); Hemoglobin 10.6 g/dL (13.0-16.5); Lymphocyte % 13.3 % (19-41); Mean Corp Hgb Conc 32.3 g/dL (32-36); Mean Corpuscular Hgb 32.2 pg (27.0-32.0); Mean Corpuscular Volume 99.7 fL (80-94); Mean Platelet Vol. 11.2 fl (6.2-12.0); Monocyte# 0.71 X10^3/uL; Monocyte% 10.5 % (0-10); NRBC Flagged by Analyzer 0 % (0-5); Neutrophil # 4.85 X10^3/uL (2.7-7.7); Neutrophil % 71.6 % (47-70); Platelet Count 149 K/mm3 (150-450); RBC Distribution Width CV 14.6 % (11.6-14.6); RBC Distribution Width SD 54.1 fl (35.1-43.9); Red Blood Count 3.29 M/mm3 (4.6-6.2); White Blood Count 6.8 K/mm3 (4.4-11.0)
[2021-10-13] VITALS (7 sets, daily range): BP systolic 106–119; BP diastolic 59–69; PULSE 59–76; RESP 16–18; TEMP 36.4–36.8; O2SAT 93–98
[2021-10-13 05:51] LABS: Absolute Lymphocyte Count 0.84 X10^3/uL (0.83-4.51); Absolute Neutrophil Count 4.9 X10^3/uL (2.0-7.7); Basophil# 0.02 X10^3/uL; Basophil% 0.3 % (0-1); Eosinophil# 0.34 X10^3/uL; Hematocrit 34.6 % (40-54); Hemoglobin 10.3 g/dL (13.0-16.5); Lymphocyte # 0.84 X10^3/ul (0.83-4.51); Lymphocyte % 12.3 % (19-41); Mean Corp Hgb Conc 29.8 g/dL (32-36); Mean Corpuscular Hgb 31.5 pg (27.0-32.0); Mean Corpuscular Volume 105.8 fL (80-94); Mean Platelet Vol. 11.2 fl (6.2-12.0); Monocyte# 0.69 X10^3/uL; Monocyte% 10.1 % (0-10); NRBC Flagged by Analyzer 0 % (0-5); Neutrophil # 4.92 X10^3/uL (2.7-7.7); Neutrophil % 71.9 % (47-70); Platelet Count 150 K/mm3 (150-450); RBC Distribution Width CV 14.5 % (11.6-14.6); RBC Distribution Width SD 55.8 fl (35.1-43.9); Red Blood Count 3.27 M/mm3 (4.6-6.2); White Blood Count 6.8 K/mm3 (4.4-11.0)
[2021-10-13 07:31] LABS: Anion Gap 2 (5-15); BUN 32 mg/dL (7-18); BUN/Creat Ratio 29.1 RATIO (10-20); Calcium,Total 8.9 mg/dL (8.5-10.1); Chloride 95 mmol/L (98-107); EST Glomerular Filtration Rate 69 mL/min (>60); Est Glom Filt Rate - Afr Amer 83 mL/min (>60); Estimated Creatinine Clearance 63.31 ml/min; Glucose 143 mg/dL (74-106); Potassium 3.8 mmol/L (3.5-5.1); Sodium Level 141 mmol/L (136-145)
[2021-10-13] MEDS: Furosemide 40 MG Tablet PO (08:32)
[2021-10-13] MEDS: Finasteride 5 MG Tablet PO (08:32)
[2021-10-13] MEDS: Insulin Lispro 100 UNIT/ML INSULN.PEN SC ×4 (08:32→11:36)
[2021-10-13] MEDS: APIXABAN 5 MG TABLET PO (08:33)
--- NOTE | 2021-10-13 11:03 | PCM.TXEXTCAR ---
Diet 10/10/21 13:53 Diet: 2000 danyel ADA Is pt able to select menu?: Yes Routine Orders/Code Status O2 Liters per Minute: 3 O2 Frequency: Continuous Keep PO Greater than or Equal to (%): 90 Routine Lab Work: - (Fingerstick blood sugars AC and nightly-Humalog subcu per results: 200-250: 5u, 251-300: 8u, 301-350: 12 units) Code Status: DNRCC-A (No intubation, patient refuses BiPAP) Therapies Weight Bearing: Resume previous activity Physical Therapy: Eval and Treat Occupational Therapy: Eval and Treat Problem/Diagnosis (1) Acute and chronic respiratory failure with hypercapnia: Status: Acute (2) Paroxysmal A-fib: Status: Chronic (3) Hyperkalemia: Status: Acute (4) Ventricular tachycardia: Status: Chronic Allergies/Procedures Done in Hospital Allergies tolterodine [From Detrol] Allergy (Verified 10/09/21 15:13) Unknown Procedures: 2-D Echocardiogram (Ejection fraction 55%, moderate pulmonary hypertension at 50 mm pulmonary artery pressure) Type of Care/Length of Stay Estimated LOS: Convalescent Care Less Than 30 days Type of Care Needed: Skilled Rehab Potential: Good Prognosis: Good Additional Orders/Day of Discharge H&P will serve as current which was dated: 10/09/21 Day of Discharge: 10/13/21 Dietary and Speech Recommendations Dietitian Recommendations/Changes: Advance diet as medically able to 2000 calorie/consistent carbohydrate Discharge Plan Admission Admit Date/Time: 10/09/21 18:17 Primary Reason for Your Visit: Acute on chronic hypercapnic respiratory failure, hyperkalemia Attending Provider: Vick Esquivel Primary Care Provider: Rhiannon Fajardo Consulting Providers: Lorenzo Flood ; Daniele Khan ; Penny Holly MEMS DEVICE SCIENTIST 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 If no bleeding in or around the catheter, may resume. Do not remove catheter unless no bleeding for at least 2 days while back on Eliquis. pantoprazole [Protonix] 40 mg Tablet,Delayed Release (Dr/Ec) 40 mg PO BID RF: 0 metformin 500 mg Tablet 1,000 mg PO DAILY RF: 0 sennosides [senna] 8.6 mg Tablet 8.6 mg PO QHS RF: 0 albuterol sulfate 2.5 mg /3 mL (0.083 %) Solution For Nebulization 2.5 mg INHALATION TID RF: 0 magnesium oxide [MagOx] 400 mg (241.3 mg magnesium) Tablet 400 mg PO BID RF: 0 docusate sodium [Colace] 100 mg Capsule 200 mg PO DAILY RF: 0 finasteride 5 mg Tablet 5 mg PO DAILY RF: 0 loratadine 10 mg Tablet 10 mg PO DAILY RF: 0 cholecalciferol (vitamin D3) 100 mcg (4,000 unit) Capsule 100 mcg PO DAILY RF: 0 tramadol 50 mg Tablet 50 mg PO Q6H PRN (Reason: Pain) RF: 0 Discontinued spironolactone [Aldactone] 25 MG tablet 12.5 mg PO DAILY RF: 0 glipizide 5 MG tablet 5 mg PO BIDAC RF: 0 insulin lispro [Humalog KwikPen Insulin] 100 unit/mL Insulin Pen See Protocol unit SUBCUT TIDCM RF: 0 Referrals / Follow Up: Rhiannon Fajardo MD [Primary Care Provider] - Disposition Disposition (needs filled in before D/C Order can be placed): Senior Living Facility
[2021-10-13 11:26] LABS: Bedside Glucose 129 mg/dL (70-110)
[2021-10-13 11:46] LABS: Bedside Glucose 257 mg/dL (70-110)
--- NOTE | 2021-10-13 13:51 | NURSING ---
attempted to call report to [facility] but unable to get ahold of any nurses. 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 daughter ermias called and aware of return to [facility] today soon. tele dc'd and sl. belongings list completed and all belongings packed
--- NOTE | 2021-10-13 14:14 | NURSING ---
nurse to nurse report [facility] to [facility] pt up to stretcher with walker and mod assist x2. able to turn with few steps when up. [facility] all belongings packed and ready
--- NOTE | 2021-10-13 16:23 | DS.PCM_ITS ---
Providers Date of Admission: 10/09/21 Date of Discharge: 10/13/21 Primary Care Physician: Dr. Rhiannon Fajardo MD Consultations 10/10/21 06:24 Consult: Rn Medical Surgical / Pulmonary Medicine Routine Consulting Provider: Pulmonary Medicine yashira Tomball Reason for Consult: Bipap, AMS, Resp failure EMERGENT Consult: No MD Notified: Yes Date Notified: 10/10/21 Time Notified: 06:24 Method of Notification: Verbal Method of Consult:: In-Person Reason For Visit: ACUTE ON CHRONIC HYPERCAPNIC RESPIRATORY FAILURE Diagnosis Discharge Diagnosis (1) Acute and chronic respiratory failure with hypercapnia: Status: Acute Code(s): J96.22 - Acute and chronic respiratory failure with hypercapnia (2) Paroxysmal A-fib: Status: Chronic Code(s): I48.0 - Paroxysmal atrial fibrillation (3) Hyperkalemia: Status: Acute Code(s): E87.5 - Hyperkalemia (4) Ventricular tachycardia: Status: Chronic Code(s): I47.2 - Ventricular tachycardia Plan: 1. Acute on chronic hypercapnic and hypoxic respiratory failure #2 hyperkalemia #3 severe pulmonary artery hypertension #4 type 2 diabetes #5 paroxysmal A. fib #6 acute metabolic encephalopathy secondary to acute on chronic hypoxic and hypercapnic respiratory failure #7 cardiomyopathy-type unknown #8 elevated troponin-not felt to be significant Pneumonia was ruled out Medications at Discharge Home Medications furosemide [Lasix] 40 mg PO BID 01/17/18 polyethylene glycol 3350 17 g PO DAILY 01/17/18 tamsulosin 0.8 mg PO QHS 01/17/18 Eliquis 5 mg PO BID 12/21/18 atorvastatin 40 mg PO QHS 12/21/18 metformin 500 mg PO QHS 12/21/18 pantoprazole [Protonix] 40 mg PO BID 07/19/21 albuterol sulfate 2.5 mg INHALATION TID 10/09/21 cholecalciferol (vitamin D3) 100 mcg PO DAILY 10/09/21 docusate sodium [Colace] 200 mg PO DAILY 10/09/21 finasteride 5 mg PO DAILY 10/09/21 loratadine 10 mg PO DAILY 10/09/21 magnesium oxide [MagOx] 400 mg PO BID 10/09/21 metformin 1,000 mg PO DAILY 10/09/21 sennosides [senna] 8.6 mg PO QHS 10/09/21 tramadol 50 mg PO Q6H PRN 10/09/21 insulin glargine [Lantus Solostar U-100 Insulin] 10 units SUBCUT BID #1 ml 10/13/21 insulin lispro [Humalog KwikPen Insulin] 5 unit SUBCUT TIDAC #1 ml 10/13/21 Hospital Course Operations None Procedures 2-D Echocardiogram Summary of Care Provided Minutes Spent on Discharge: 33 Hospital Course: This 81-year-old white male was seen in the emergency room at [facility] after being sent in from a local extended care facility at which she is a resident due to altered mental status and high CO2 level on his labs. Work-up in the emergency room included labs which showed the potassium to be slightly high at 5.2, bicarb was elevated above 45, creatinine was 1.24, BUN was 39, chest x-ray showed no acute disease with chronic changes and cardiomegaly. Patient was placed on BiPAP in the emergency room, he was admitted to ICU and seen in consultation by critical care, he subsequently was transferred down to PCU for further care. Patient desired not to be on any BiPAP and did not want to be intubated, he stabilized on nasal cannula oxygen and his mental status improved. On 10/13/2021, patient was seen and examined: On examination he appeared in no distress, he appeared older than his stated age. Vital signs as documented. Skin warm and dry and without overt rashes. Neck without JVD, neck was supple, trachea midline, thyroid was normal. Lungs clear bilaterally, normal air movement was noted. Heart exam notable for regular rhythm, normal sounds and absence of murmurs, rubs or gallops. Abdomen unremarkable and without evidence of organomegaly, masses, or abdominal aortic enlargement. Bowel sounds are present, abdomen is not distended. Extremities-bilateral lower leg edema was noted, no cyanosis was noted, no clubbing was noted. Neuro: Cranial nerves II through XII are grossly intact, no focal motor deficits were noted, sensation to light touch and pinprick intact, motor exam 5/5 throughout. Psych: Patient is alert and oriented x3, he does not appear anxious or depressed, he does not appear agitated. Patient was felt to be stable for discharge back to his extended care facility on 10/13/2021. Weight / BMI Weight Weight: 97.6 kg Body Mass Index (BMI) 27.6 ABG / Lab / Microbiology Data Result Diagrams: 10/13/21 04:30 10/13/21 04:30 Laboratory: Laboratory Results - last 24 hr 10/12/21 04:19: WBC 6.8, RBC 3.29 L, Hgb 10.6 L, Hct 32.8 L, MCV 99.7 H, MCH 32.2 H, MCHC 32.3 D, RDW Std Deviation 54.1 H, RDW Coeff of Simón 14.6, Plt Count 149 L, MPV 11.2, Immature Gran % (Auto) 0.300, Neut % (Auto) 71.6 H, Lymph % (Auto) 13.3 L, Johnson % (Auto) 10.5 H, Eos % (Auto) 4.0, Baso % (Auto) 0.3, Absolute Neuts (auto) 4.9, Absolute Lymphs (auto) 0.90, Nucleated RBC % 0 10/12/21 04:19: Sodium 143, Potassium 3.5, Chloride 94 L, Carbon Dioxide > 45.0 H*, Anion Gap TNP, BUN 40 H, Creatinine 1.34 H, Estim Creat Clear Calc 51.97, Est GFR (MDRD) Af Amer 66, Est GFR (MDRD) Non-Af 55 L, BUN/Creatinine Ratio 29.9 H, Glucose 130 H, Calcium 9.4 10/12/21 08:39: POC Glucose 126 H 10/12/21 12:12: POC Glucose 342 H 10/12/21 16:08: POC Glucose 229 H 10/12/21 21:50: POC Glucose 188 H 10/13/21 04:30: WBC 6.8, RBC 3.27 L, Hgb 10.3 L, Hct 34.6 L, MCV 105.8 H D, MCH 31.5, MCHC 29.8 L D, RDW Std Deviation 55.8 H, RDW Coeff of Simón 14.5, Plt Count 150, MPV 11.2, Immature Gran % (Auto) 0.400, Neut % (Auto) 71.9 H, Lymph % (Auto) 12.3 L, Johnson % (Auto) 10.1 H, Eos % (Auto) 5.0, Baso % (Auto) 0.3, Absolute Neuts (auto) 4.9, Absolute Lymphs (auto) 0.84, Nucleated RBC % 0 10/13/21 04:30: Sodium 141, Potassium 3.8, Chloride 95 L, Carbon Dioxide 44.0 H, Anion Gap 2 L, BUN 32 H, Creatinine 1.10, Estim Creat Clear Calc 63.31, Est GFR (MDRD) Af Amer 83, Est GFR (MDRD) Non-Af 69, BUN/Creatinine Ratio 29.1 H, Glucose 143 H, Calcium 8.9 10/13/21 08:29: POC Glucose 129 H 10/13/21 11:34: POC Glucose 257 H Microbiology: Microbiology 10/13/21 11:40 Nasal Secretion SARS-CoV-2 Antigen (Rapid) - Final 10/10/21 00:00 Blood Culture (Wb) - Right Hand Blood Culture - Preliminary No growth in 48 hours. 10/09/21 18:54 Blood Culture (Wb) - Anticubital Right Bacteria Detection (PCR) - Final Staphylococcus epidermidis 10/09/21 18:54 Blood Culture (Wb) - Anticubital Right Blood Culture - Final Staphylococcus epidermidis 10/09/21 22:40 Urine Catheter - Martin Legionella Antigen - Final 10/09/21 22:40 Urine Catheter - Martin Streptococcus pneumoniae Antigen (M - Final 10/09/21 19:14 Nasal Secretion SARS-CoV-2 Antigen (Rapid) - Final Meaningful Use Info Meaningful Use Diagnoses (Choose all that apply): None applicable Discharge Plan Admission Admit Date/Time: 10/09/21 18:17 Primary Reason for Your Visit: Acute on chronic hypercapnic respiratory failure, hyperkalemia Attending Provider: Vick Esquivel Primary Care Provider: Rhiannon Fajardo Consulting Providers: Lorenzo Flood ; Daniele Khan ; Penny Holly [employer]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 If no bleeding in or around the c atheter, may resume. Do not remove catheter unless no bleeding for at least 2 days while back on Eliquis. pantoprazole [Protonix] 40 mg Tablet,Delayed Release (Dr/Ec) 40 mg PO BID RF: 0 metformin 500 mg Tablet 1,000 mg PO DAILY RF: 0 sennosides [senna] 8.6 mg Tablet 8.6 mg PO QHS RF: 0 albuterol sulfate 2.5 mg /3 mL (0.083 %) Solution For Nebulization 2.5 mg INHALATION TID RF: 0 magnesium oxide [MagOx] 400 mg (241.3 mg magnesium) Tablet 400 mg PO BID RF: 0 docusate sodium [Colace] 100 mg Capsule 200 mg PO DAILY RF: 0 finasteride 5 mg Tablet 5 mg PO DAILY RF: 0 loratadine 10 mg Tablet 10 mg PO DAILY RF: 0 cholecalciferol (vitamin D3) 100 mcg (4,000 unit) Capsule 100 mcg PO DAILY RF: 0 tramadol 50 mg Tablet 50 mg PO Q6H PRN (Reason: Pain) RF: 0 Discontinued spironolactone [Aldactone] 25 MG tablet 12.5 mg PO DAILY RF: 0 glipizide 5 MG tablet 5 mg PO BIDAC RF: 0 insulin lispro [Humalog KwikPen Insulin] 100 unit/mL Insulin Pen See Protocol unit SUBCUT TIDCM RF: 0 Referrals / Follow Up: Rhiannon Fajardo MD [Primary Care Provider] - Disposition Disposition (needs filled in before D/C Order can be placed): [facility] Facility Charges/Coding Visit Charges Inpatient E&M: 84864 Disch Hosp
== END 2021-10-13 14:00 | disposition skilled nursing facility (03) | DRG 189 ==
LOC: ED 18:02 → ICU 18:32 → PCU 10-10 16:55
PROVIDERS: Internal Medicine; Admitting Provider Internal Medicine; Emergency Provider Emergency Medicine; PCP Internal Medicine; Visit Provider Internal Medicine
DX: J96.22 Acute and chronic respiratory failure with hypercapnia (principal); G93.41 Metabolic encephalopathy; I13.0 Hypertensive heart and chronic kidney disease with heart failure and stage 1 through stage 4 chronic kidney disease, or unspecified chronic kidney disease; E87.2 Acidosis; I47.2 Ventricular tachycardia; I50.42 Chronic combined systolic (congestive) and diastolic (congestive) heart failure; I42.9 Cardiomyopathy, unspecified; J96.21 Acute and chronic respiratory failure with hypoxia; I27.20 Pulmonary hypertension, unspecified; E11.22 Type 2 diabetes mellitus with diabetic chronic kidney disease; E11.40 Type 2 diabetes mellitus with diabetic neuropathy, unspecified; I48.0 Paroxysmal atrial fibrillation; E11.51 Type 2 diabetes mellitus with diabetic peripheral angiopathy without gangrene; Z79.4 Long term (current) use of insulin; E87.5 Hyperkalemia; K21.9 Gastro-esophageal reflux disease without esophagitis; N18.2 Chronic kidney disease, stage 2 (mild); E78.5 Hyperlipidemia, unspecified; N40.0 Benign prostatic hyperplasia without lower urinary tract symptoms; I89.0 Lymphedema, not elsewhere classified; M79.89 Other specified soft tissue disorders; Z79.01 Long term (current) use of anticoagulants; Z66 Do not resuscitate; Z91.19 Patient's noncompliance with other medical treatment and regimen; Z95.810 Presence of automatic (implantable) cardiac defibrillator; Z79.899 Other long term (current) drug therapy; Z99.81 Dependence on supplemental oxygen; Z20.822 Contact with and (suspected) exposure to COVID-19; E66.9 Obesity, unspecified; Z68.27 Body mass index [BMI] 27.0-27.9, adult
CPT/HCPCS: 36415; 36600; 71045; 80048; 80053; 81001; 82803; 82962; 83605; 83735; 84100; 84443; 84484; 85025; 87040; 87149; 87426; 87449; 87641; 93005; 93306; 93971; 94002; 94003; 97163; 97166; 97802; 99285; J7040; J7050; Q9957; A4216; C8929; J1940